=== PATIENT | male | born 1950 | race Caucasian/White ===

== ENCOUNTER 2019-05-12 04:06 | Observation (INO) ==
[2019-05-12] MEDS ORDERED: ONDANSETRON INJ 2 MG/ML 2 ML VIAL IV STA (04:25)
[2019-05-12] MEDS ORDERED: MoRPHine SULFATE 4 MG/ML 1 ML CARP\\VIAL IV STA ×2 (04:25→04:53)
[2019-05-12 04:41] LABS: Basophils # (auto) 0.03 K/uL (0-0.2); Basophils % (auto) 0.2 %; Eosinophils # (auto) 0.07 K/uL (0-0.5); Eosinophils % (auto) 0.5 %; Hematocrit (blood only) 42.2 % (42-52); Hemoglobin 14.6 g/dL (14.0-18.0); Immature Granulocytes # (auto) 0.01 K/uL (0.00-0.02); Immature Granulocytes % (auto) 0.1 %; Lymphocytes # (auto) 1.39 K/uL (1.2-3.4); Lymphocytes % (auto) 10.9 %; Mean Corpuscular Hemoglobin 31.4 pg (25-34); Mean Corpuscular Hgb Conc 34.6 g/dL (32-36); Mean Corpuscular Volume 90.8 fL (80-100); Mean Platelet Volume 11.1 fL (7.4-10.4); Monocytes # (auto) 0.54 K/uL (0.11-0.59); Monocytes % (auto) 4.2 %; Neutrophils # (auto) 10.72 K/uL (1.4-6.5); Neutrophils % (auto) 84.1 %; Platelet Count 220 K/uL (130-400); RDW Coefficient of Variation 14.1 % (11.5-14.5); RDW Standard Deviation 46.7 fL (36.4-46.3); Red Blood Count 4.65 M/uL (4.7-6.1); White Blood Count 12.76 K/uL (4.8-10.8)
[2019-05-12 04:51] LABS: iSTAT Creatinine 0.8 mg/dl (0.6-1.3); iSTAT Hemoglobin 14.6 g/dl (14.0-18.0); iSTAT Ionized Calcium 1.19 mmol/l (1.12-1.32); iSTAT Potassium 3.3 mEq/L (3.3-5.0)
[2019-05-12] MEDS ORDERED: OPTIRAY 320 125ml IV PRN (04:59)
[2019-05-12 05:00] LABS: Alanine Aminotransferase 124 U/L (12-78); Albumin Level 3.8 gm/dl (3.4-5.0); Aspartate Aminotransferase 210 U/L (15-37); BUN Creatinine Ratio 11.7 (10-20); Blood Urea Nitrogen 12 mg/dl (7-18); Calcium 9.4 mg/dl (8.5-10.1); Carbon Dioxide 33 mmol/L (21-32); Chloride 101 mmol/L (98-107); Creatinine Clr Calc Pharmacy 67.7 ml/min; Est GFR (African American) 85.5; Est GFR (Non-African American) 73.8; Glucose 183 mg/dl (70-99); Lipase 79 U/L (73-393); Potassium 3.2 mmol/L (3.5-5.1); Sodium 137 mmol/L (136-145)
[2019-05-12 05:05] LABS: Albumin Globulin Ratio 0.8 (0.9-2); Alkaline Phosphatase 122 U/L (45-117); Bilirubin,Total 0.8 mg/dl (0.2-1); Globulin 4.5 gm/dl (2.5-4.0); Total Protein 8.3 gm/dl (6.4-8.2); Troponin I < 0.015 ng/ml (0-0.045)
--- NOTE | 2019-05-12 05:06 | Emergency Department Note ---
ED Visit Note I have personally seen and evaluated the patient with the PA. On my evaluation, the patient had some pain with palpation of the epigastric to right upper quadrant. Bedside ultrasound was performed by Martha Velazquez PA-C while I was at the bedside. It reveals no free fluid in the abdomen, no clear acute cholecystitis. Patient is aware of the plan for admission and agrees. I agree with the diagnosis and management decisions and have been personally involved in the case. Please see Martha Velazquez PA-C's notes for further details of the history, physical and visit. .
--- NOTE | 2019-05-12 05:09 | Emergency Department Note ---
History of Present Illness General Chief complaint: Abdominal Pain Stated complaint: SEVERE ABD PAIN History of Present Illness Maximum Pain Intensity: 9 This 68-year-old presents to the ER complaining of severe epigastric pain that radiates to his back Location: Epigastric upper abdomen Quality: Severe Severity: Severe Duration: Started at 7 PM last night Timing: Started at 7 PM while watching TV Context: Pain persisted and patient came in Modifying factors: better with nothing; worse with movement Patient is on Eliquis for A. fib. He had a loop monitor placed last week. No prior abdominal surgeries. Patient said heart attack and has heart disease. He has history of CHF. He has a known aortic aneurysm. He believes it is 4.5 cm. Patient denies dyspnea, leg pain or swelling, numbness, tingling, localized weakness. Home Medications Home Medications Medication Instructions Recorded Confirmed Type cilostazol 100 mg PO BID 03/12/18 05/12/19 History hydrochlorothiazide 12.5 mg PO TID 03/12/18 05/12/19 History apixaban [Eliquis] 5 mg PO BID 05/12/19 05/12/19 History metoprolol succinate [Toprol XL] 50 mg PO HS 05/12/19 05/12/19 History nitroglycerin 0.4 mg SUBLINGUAL DIRECTED PRN 05/12/19 05/12/19 History sacubitril-valsartan [Entresto] 1 tab PO BID 05/12/19 05/12/19 History Allergies Allergy/AdvReac Type Severity Reaction Status Date / Time adhesive AdvReac Mild Blister Verified 05/12/19 04:53 magnesium AdvReac Mild Diarrhea Verified 05/12/19 04:53 NSAIDS (Non-Steroidal AdvReac Mild Gastrointestinal Verified 05/12/19 04:53 Anti-Inflamma Upset Tvvdemr-Srd-Ovs Reductase AdvReac Mild Diarrhea Verified 05/12/19 04:53 Inhibitor fenofibrate AdvReac Diarrhea Verified 05/12/19 04:53 olmesartan [From Benicar] AdvReac Diarrhea Verified 05/12/19 04:53 quinapril [From Accupril] AdvReac Confusion Verified 05/12/19 04:53 Past Med/Surg History Medical History (Updated 05/12/19 @ 08:23 by Gavin Minor MD) Abnormal diagnostic test result Abnormal cologuard result CVA (cerebral vascular accident) 04/2019 when off ASA for his planned CABG (which did not happen) 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 - seeHarvey Garcia History of irregular heartbeat Hypertension Ischemic cardiomyopathy Surgical History History of detached retina repair Hx of cardiac catheterization 2001 [place] - stents x3 - done at [facility] Hx of cataract right and left Hx of tooth extraction Family History Brother Myocardial infarction Sister Myocardial infarction Father Myocardial infarction Social History Preferred Language: Persian Communication Ability: Effective Radiator Repairer Required: No Beliefs That Will Affect Care: None Current Living Situation: Spouse Feels Safe at Home: Yes Smoking Status: Never smoker Hx Alcohol Use: No Hx Substance Use: No Review of Systems A total of 10 systems reviewed and were otherwise negative Physical Exam Vital Signs Vital Signs - 24 hr 05/12/19 04:10 05/12/19 04:51 05/12/19 05:00 Temperature 36.3 C L Temperature Source Oral Pulse Rate 53 L 64 Pulse Rate [Apical] 64 Pulse Rate from SpO2 Sensor 69 Pulse Rhythm [Apical] Irregular Respiratory Rate 20 10 L 20 Respiratory Effort / Characteristics Respiratory Depth Shallow Respiratory Pattern Blood Pressure 162/58 H 173/107 H Blood Pressure [Right Arm] 173/86 H Blood Pressure Mean 92 113 Blood Pressure Mean [Right Arm] 115 Blood Pressure Position Sitting Blood Pressure Position [Right Arm] Pulse Oximetry 99 97 95 Oxygen Delivery Method Room Air Room Air Sepsis Recent Fever Within 48 Hours No Sepsis Action Taken by Nursing No Action Required 05/12/19 05:01 05/12/19 05:30 05/12/19 05:31 Temperature Temperature Source Pulse Rate 61 69 58 L Pulse Rate [Apical] Pulse Rate from SpO2 Sensor 56 L 66 60 Pulse Rhythm [Apical] Respiratory Rate 19 23 19 Respiratory Effort / Characteristics Respiratory Depth Respiratory Pattern Blood Pressure 173/86 H 161/81 H Blood Pressure [Right Arm] Blood Pressure Mean 97 90 Blood Pressure Mean [Right Arm] Blood Pressure Position Blood Pressure Position [Right Arm] Pulse Oximetry 97 95 93 Oxygen Delivery Method Sepsis Recent Fever Within 48 Hours Sepsis Action Taken by Nursing 05/12/19 05:44 05/12/19 05:50 05/12/19 05:51 Temperature Temperature Source Pulse Rate 66 57 L Pulse Rate [Apical] 60 Pulse Rate from SpO2 Sensor 57 L Pulse Rhythm [Apical] Respiratory Rate 18 19 18 Respiratory Effort / Characteristics Non-Labored Spontaneous Respiratory Depth Normal Respiratory Pattern Regular Blood Pressure 154/100 H Blood Pressure [Right Arm] 161/81 H Blood Pressure Mean 126 Blood Pressure Mean [Right Arm] 107 Blood Pressure Position Blood Pressure Position [Right Arm] Lying Pulse Oximetry 95 98 Oxygen Delivery Method Room Air Sepsis Recent Fever Within 48 Hours Sepsis Action Taken by Nursing 05/12/19 06:00 05/12/19 06:15 05/12/19 06:30 Temperature Temperature Source Pulse Rate 58 L 53 L 53 L Pulse Rate [Apical] Pulse Rate from SpO2 Sensor 48 L 52 L 51 L Pulse Rhythm [Apical] Respiratory Rate 16 27 H 16 Respiratory Effort / Characteristics Respiratory Depth Respiratory Pattern Blood Pressure 155/80 H 139/75 Blood Pressure [Right Arm] Blood Pressure Mean 86 100 Blood Pressure Mean [Right Arm] Blood Pressure Position Blood Pressure Position [Right Arm] Pulse Oximetry 95 97 96 Oxygen Delivery Method Sepsis Recent Fever Within 48 Hours Sepsis Action Taken by Nursing 05/12/19 06:31 05/12/19 06:33 05/12/19 06:45 Temperature Temperature Source Pulse Rate 53 L 53 L Pulse Rate [Apical] 53 L Pulse Rate from SpO2 Sensor 47 L 47 L Pulse Rhythm [Apical] Respiratory Rate 15 18 20 Respiratory Effort / Characteristics Non-Labored Spontaneous Respiratory Depth Normal Respiratory Pattern Regular Blood Pressure Blood Pressure [Right Arm] 139/75 Blood Pressure Mean Blood Pressure Mean [Right Arm] 96 Blood Pressure Position Blood Pressure Position [Right Arm] Pulse Oximetry 95 95 95 Oxygen Delivery Method Room Air Sepsis Recent Fever Within 48 Hours Sepsis Action Taken by Nursing 05/12/19 07:00 05/12/19 07:01 05/12/19 07:30 Temperature Temperature Source Pulse Rate 53 L 53 L 61 Pulse Rate [Apical] Pulse Rate from SpO2 Sensor 55 L 43 L 52 L Pulse Rhythm [Apical] Respiratory Rate 18 19 15 Respiratory Effort / Characteristics Respiratory Depth Respiratory Pattern Blood Pressure 135/72 144/76 H Blood Pressure [Right Arm] Blood Pressure Mean 78 99 Blood Pressure Mean [Right Arm] Blood Pressure Position Blood Pressure Position [Right Arm] Pulse Oximetry 96 95 98 Oxygen Delivery Method Sepsis Recent Fever Within 48 Hours Sepsis Action Taken by Nursing VITALS: Vitals are noted on the nurse's note and reviewed by myself. Vital signs stable. GENERAL: White male who appears in pain, in acute distress SKIN: Capillary reflex less than 2 seconds. HEENT: Normocephalic. PERRLA. EOMI. Nares patent. Mucous membranes moist. Neck is supple without nuchal rigidity. HEART: Regular rate and rhythm LUNGS: Clear to auscultation bilaterally without wheezes, rales or rhonchi. No retractions or accessory muscle use. ABDOMEN: Positive bowel sounds x 4. Normal tympanic percussion. Soft, tender epigastric region, without masses or organomegaly. Costello sign negative. No guarding or rebound tenderness. No CVA tenderness Rectal exam: No fissures or tears, brown stool, guaiac negative. MUSCULOSKELETAL: No gross musculoskeletal defects. NEURO: Patient was alert and oriented to person place and time. Normal sensation to light and sharp touch. No focal neurological deficits. Course Administered Medications Heparin Sodium/Dextrose (Heparin Sodium/Dextrose) 25,000 units in 500 mls @ 26 mls/hr IV .[id number] [facility]; Protocol Stop: 06/11/19 15:59 Last Titration: 05/12/19 19:11 Dose: 1,300 units/hr, 26 mls/hr Documented by: [id number] Cosigned by: [id number] Admin: 05/12/19 15:48 Dose: 1,300 units/hr, 26 mls/hr Documented by: [id number] Cosigned by: [id number] Metoprolol Succinate (Toprol Xl) 50 mg PO HS [facility] Stop: 06/11/19 20:59 Last Admin: 05/12/19 19:58 Dose: 50 mg Documented by: [id number] Morphine Sulfate (Morphine Sulfate) 4 mg IV Q4H PRN PRN Reason: Pain Stop: 05/26/19 09:50 Last Admin: 05/12/19 18:17 Dose: 4 mg Documented by: [id number] Admin: 05/12/19 14:06 Dose: 4 mg Documented by: [id number] Admin: 05/12/19 10:14 Dose: 4 mg Documented by: [id number] Sacubitril/Valsartan (Entresto 24/26mg) 1 tab PO BID [facility] Stop: 06/11/19 09:59 Last Admin: 05/12/19 19:58 Dose: 1 tab Documented by: [id number] Admin: 05/12/19 11:36 Dose: 1 tab Documented by: [id number] Discontinued Medications Famotidine (Pepcid 20mg Iv Push) 20 mg IV ONE STA Stop: 05/12/19 05:31 Last Admin: 05/12/19 05:35 Dose: 20 mg Documented by: [id number] Pantoprazole Sodium 40 mg/ (Syringe) 10 mls @ 5 mls/min IV NOW STA Stop: 05/12/19 05:43 Last Admin: 05/12/19 05:56 Dose: 5 mls/min Documented by: [id number] Sodium Chloride (Nss) 250 mls @ 999 mls/hr IV .Q16M ONE Stop: 05/12/19 06:07 Last Infusion: 05/12/19 06:29 Dose: 0 mls/hr Documented by: [id number] Admin: 05/12/19 05:53 Dose: 999 mls/hr Documented by: [id number] Heparin Sodium (Porcine) 6,000 (units/ Syringe) 6 mls @ 10 mls/min IV NOW STA Stop: 05/12/19 15:38 Last Admin: 05/12/19 15:48 Dose: 10 mls/min Documented by: [id number] Cosigned by: [id number] Ioversol (Optiray 320 125ml) 125 ml IV ONCE PRN PRN Reason: Interaction Checking Stop: 05/16/19 04:58 Last Admin: 05/12/19 04:59 Dose: 119 ml Documented by: [id number] Morphine Sulfate (Morphine Sulfate) 4 mg IV NOW STA Stop: 05/12/19 04:26 Last Admin: 05/12/19 04:35 Dose: 4 mg Documented by: [id number] Morphine Sulfate (Morphine Sulfate) 4 mg IV NOW STA Stop: 05/12/19 04:54 Last Admin: 05/12/19 04:58 Dose: 4 mg Documented by: [id number] Ondansetron HCl (Zofran) 4 mg IV NOW STA Stop: 05/12/19 04:26 Last Admin: 05/12/19 04:35 Dose: 4 mg Documented by: [id number] Medical Decision Making Medical Records Attestation: I reviewed the patient's medical records. Home Medications Current Medication List: was personally reviewed by me Laboratory Data Attestation: I reviewed the patient's lab results. Result diagrams: 05/12/19 05:27 05/12/19 04:25 Lab Results 05/12/19 05/12/19 05/12/19 Range/Units 04:25 04:25 04:25 WBC 12.76 H (4.8-10.8) K/uL RBC 4.65 L (4.7-6.1) M/uL Hgb 14.6 (14.0-18.0) g/dL POC Hgb (14.0-18.0) g/dl Hct 42.2 (42-52) % POC Hct (42-52) % MCV 90.8 (80-100) fL MCH 31.4 (25-34) pg MCHC 34.6 (32-36) g/dL RDW Std Deviation 46.7 H (36.4-46.3) fL RDW Coeff of Carlos 14.1 (11.5-14.5) % Plt Count 220 (130-400) K/uL MPV 11.1 H (7.4-10.4) fL Immature Gran % (Auto) 0.1 % Neut % (Auto) 84.1 % Lymph % (Auto) 10.9 % Schleicher % (Auto) 4.2 % Eos % (Auto) 0.5 % Baso % (Auto) 0.2 % Immature Gran # (Auto) 0.01 (0.00-0.02) K/uL Neut # (Auto) 10.72 H (1.4-6.5) K/uL Lymph # (Auto) 1.39 (1.2-3.4) K/uL Schleicher # (Auto) 0.54 (0.11-0.59) K/uL Eos # (Auto) 0.07 (0-0.5) K/uL Baso # (Auto) 0.03 (0-0.2) K/uL PT 10.5 (9.0-12.0) Seconds INR 1.0 (0.9-1.1) APTT 25.8 (21.0-31.0) Seconds PTT Ratio 1.0 POC Sodium (135-144) mEq/L Sodium 137 (136-145) mmol/L POC Potassium (3.3-5.0) mEq/L Potassium 3.2 L (3.5-5.1) mmol/L POC Chloride (101-112) mEq/L Chloride 101 (98-107) mmol/L Carbon Dioxide 33 H (21-32) mmol/L POC Total CO2 (24-31) mEq/l Anion Gap 3.0 (3-11) POC Anion Gap (16-25) mmol/L POC BUN (7-18) mg/dl BUN 12 (7-18) mg/dl Creatinine 1.03 (0.6-1.4) mg/dl POC Creatinine (0.6-1.3) mg/dl Est Cr Clr Drug Dosing 67.7 ml/min Est GFR ( Amer) 85.5 Est GFR (Non-Af Amer) 73.8 BUN/Creatinine Ratio 11.7 (10-20) Glucose 183 H (70-99) mg/dl POC Glucose (other) (70-99) mg/dl POC Lactic Acid Rory (0.90-1.70) mmol/L Lactate (0.4-2.0) mmol/L Calcium 9.4 (8.5-10.1) mg/dl POC Ioniz Calcium Los (1.12-1.32) mmol/l Total Bilirubin 0.8 (0.2-1) mg/dl AST 210 H (15-37) U/L ALT 124 H (12-78) U/L Alkaline Phosphatase 122 H (45-117) U/L Troponin I < 0.015 (0-0.045) ng/ml Total Protein 8.3 H (6.4-8.2) gm/dl Albumin 3.8 (3.4-5.0) gm/dl Globulin 4.5 H (2.5-4.0) gm/dl Albumin/Globulin Ratio 0.8 L (0.9-2) Lipase 79 (73-393) U/L Hep Bs Antigen (Neg) Hepatitis C Antibody (Neg) 05/12/19 05/12/19 05/12/19 Range/Units 04:25 04:32 04:36 WBC (4.8-10.8) K/uL RBC (4.7-6.1) M/uL Hgb (14.0-18.0) g/dL POC Hgb 14.6 (14.0-18.0) g/dl Hct (42-52) % POC Hct 43 (42-52) % MCV (80-100) fL MCH (25-34) pg MCHC (32-36) g/dL RDW Std Deviation (36.4-46.3) fL RDW Coeff of Carlos (11.5-14.5) % Plt Count (130-400) K/uL MPV (7.4-10.4) fL Immature Gran % (Auto) % Neut % (Auto) % Lymph % (Auto) % Schleicher % (Auto) % Eos % (Auto) % Baso % (Auto) % Immature Gran # (Auto) (0.00-0.02) K/uL Neut # (Auto) (1.4-6.5) K/uL Lymph # (Auto) (1.2-3.4) K/uL Schleicher # (Auto) (0.11-0.59) K/uL Eos # (Auto) (0-0.5) K/uL Baso # (Auto) (0-0.2) K/uL PT (9.0-12.0) Seconds INR (0.9-1.1) APTT (21.0-31.0) Seconds PTT Ratio POC Sodium 138 (135-144) mEq/L Sodium (136-145) mmol/L POC Potassium 3.3 (3.3-5.0) mEq/L Potassium (3.5-5.1) mmol/L POC Chloride 98 L (101-112) mEq/L Chloride (98-107) mmol/L Carbon Dioxide (21-32) mmol/L POC Total CO2 30 (24-31) mEq/l Anion Gap (3-11) POC Anion Gap 14.0 L (16-25) mmol/L POC BUN 12 (7-18) mg/dl BUN (7-18) mg/dl Creatinine (0.6-1.4) mg/dl POC Creatinine 0.8 (0.6-1.3) mg/dl Est Cr Clr Drug Dosing ml/min Est GFR ( Amer) Est GFR (Non-Af Amer) BUN/Creatinine Ratio (10-20) Glucose (70-99) mg/dl POC Glucose (other) 189 H (70-99) mg/dl POC Lactic Acid Rory 1.97 H (0.90-1.70) mmol/L Lactate (0.4-2.0) mmol/L Calcium (8.5-10.1) mg/dl POC Ioniz Calcium Los 1.19 (1.12-1.32) mmol/l Total Bilirubin (0.2-1) mg/dl AST (15-37) U/L ALT (12-78) U/L Alkaline Phosphatase (45-117) U/L Troponin I (0-0.045) ng/ml Total Protein (6.4-8.2) gm/dl Albumin (3.4-5.0) gm/dl Globulin (2.5-4.0) gm/dl Albumin/Globulin Ratio (0.9-2) Lipase (73-393) U/L Hep Bs Antigen Neg (Neg) Hepatitis C Antibody Neg (Neg) 05/12/19 05/12/19 Range/Units 05:27 07:26 WBC (4.8-10.8) K/uL RBC (4.7-6.1) M/uL Hgb 14.0 (14.0-18.0) g/dL POC Hgb (14.0-18.0) g/dl Hct 40.4 L (42-52) % POC Hct (42-52) % MCV (80-100) fL MCH (25-34) pg MCHC (32-36) g/dL RDW Std Deviation (36.4-46.3) fL RDW Coeff of Carlos (11.5-14.5) % Plt Count (130-400) K/uL MPV (7.4-10.4) fL Immature Gran % (Auto) % Neut % (Auto) % Lymph % (Auto) % Schleicher % (Auto) % Eos % (Auto) % Baso % (Auto) % Immature Gran # (Auto) (0.00-0.02) K/uL Neut # (Auto) (1.4-6.5) K/uL Lymph # (Auto) (1.2-3.4) K/uL Schleicher # (Auto) (0.11-0.59) K/uL Eos # (Auto) (0-0.5) K/uL Baso # (Auto) (0-0.2) K/uL PT (9.0-12.0) Seconds INR (0.9-1.1) APTT (21.0-31.0) Seconds PTT Ratio POC Sodium (135-144) mEq/L Sodium (136-145) mmol/L POC Potassium (3.3-5.0) mEq/L Potassium (3.5-5.1) mmol/L POC Chloride (101-112) mEq/L Chloride (98-107) mmol/L Carbon Dioxide (21-32) mmol/L POC Total CO2 (24-31) mEq/l Anion Gap (3-11) POC Anion Gap (16-25) mmol/L POC BUN (7-18) mg/dl BUN (7-18) mg/dl Creatinine (0.6-1.4) mg/dl POC Creatinine (0.6-1.3) mg/dl Est Cr Clr Drug Dosing ml/min Est GFR ( Amer) Est GFR (Non-Af Amer) BUN/Creatinine Ratio (10-20) Glucose (70-99) mg/dl POC Glucose (other) (70-99) mg/dl POC Lactic Acid Rory (0.90-1.70) mmol/L Lactate 1.6 (0.4-2.0) mmol/L Calcium (8.5-10.1) mg/dl POC Ioniz Calcium Los (1.12-1.32) mmol/l Total Bilirubin (0.2-1) mg/dl AST (15-37) U/L ALT (12-78) U/L Alkaline Phosphatase (45-117) U/L Troponin I (0-0.045) ng/ml Total Protein (6.4-8.2) gm/dl Albumin (3.4-5.0) gm/dl Globulin (2.5-4.0) gm/dl Albumin/Globulin Ratio (0.9-2) Lipase (73-393) U/L Hep Bs Antigen (Neg) Hepatitis C Antibody (Neg) Imaging Data Attestation: I personally reviewed and interpreted this imaging study as follows: Blood Pressure Blood Pressure Findings: Elevated blood pressure Blood Pressure Disposition: Referred to patients primary care provider MDM Narrative Prior records/ancillary studies reviewed. Triage Nursing notes reviewed. Additional history obtained from family. The patient's history was concerning for epigastric pain. Differential diagnosis: Etiologies such as cardiac ischemia, aortic dissection, gallbladder, pancreatitis, pulmonary embolism, pneumonia, pneumothorax, musculoskeletal, infections, pericarditis, myocarditis, esophageal rupture, gastrointestinal, as well as others were entertained. Physical examination: As above. ER treatment provided: An order was placed for continuous cardiac monitoring. The monitor shows a rate of 60-100 with a normal sinus rhythm. IV fluids, Zofran, morphine, Protonix, Pepcid On reassessment the patient felt better. Diagnostic interpretation by me: Emergent FAST POCUS performed by me. Subxiphoid view and parasternal long shows no pericardial effusion or tamponade. Abdominal views demonstrate no free fluid in the hepatorenal space, splenorenal space, or around the bladder. No free fluid. Normal FAST per my interpretation. The electrocardiogram was negative for pathologic change. Normal sinus, occasional PVC, no acute ST-T wave changes, rate of 63. Impression normal sinus rhythm with occasional PVC interpreted by myself Ordered for epigastric pain I think arrhythmia is unlikely. EKG shows normal sinus rhythm with no interval abnormalities such as QT prolongation or WPW. There are no findings to suggest Brugada syndrome. Cardiac monitoring in the emergency department reveals no tachycardic or bradycardic dysrhythmia. Hypertrophic cardiomyopathy was considered but there are no clear historical elements pointing toward this. EKG is not suggestive. The QRS voltage is not extremely large and there are no suggestive Q waves. The labs revealed mild leukocytosis, mild LFT elevation, normal bilirubin, normal lipase. Negative troponin Repeat H&H are mildly lower Lactic acid slightly elevated Imaging studies: CTA CHEST: No pulmonary embolism or acute aortic syndrome. Aneurysmal ascending thoracic aorta measuring 4.5 cm. Atheromatous disease within the descending thoracic aorta. No pulmonary embolism. Severe coronary artery calcifications. No acute process within the lungs. No pleural effusion or pneumothorax. No fracture. CTA ABDOMEN & PELVIS: Infrarenal abdominal aortic aneurysm measuring 4.7 x 4.6 cm. No rupture. Advanced atheromatous disease. Patent celiac artery and SMA. Occluded GABRIEL with reconstitution. Moderate to severe stenosis within the bilateral common iliac arteries. Moderate to severe stenosis within the proximal SFA bilaterally. Oval hyperdense focus within the cecum measuring 2.2 x 1.3 cm with what appears to be a feeding artery concerning for an active GI bleed. A hyperdense masses also in the differential but considered less likely. Enlarged mesenteric lymph node adjacent to the cecum with internal calcification measuring 1.5 x 1.2 cm. Colonic diverticulosis. Unremarkable appearance of the liver, gallbladder, pancreas, spleen, and adrenal glands. Right renal lower pole infarct, chronic. Radiologist: Jhon Saleh MD HEART SCORE: Hx: high/mod/low suspicion: 0 ECG: ST depression/nonspecific changes/normal: 0 Age: Greater than 65/45-64/less than 45: 2 Risk factors: (Hypertension, hyperlipidemia, diabetes, coronary disease, tobacco use, cocaine use): 1 Troponin: Greater than 2 times normal limits/1-2 times normal limits/normal: 0 Total: 3 Consultation: A consultation was placed with the radiologist and states he is concerned there might be an active GI bleed. I spoke to GI, Dr. Garcia, and recommends medical admission and will scope the patient in the morning and recommends the patient stay n.p.o. Dr. Gamez, hospitalist was made aware of the patient for admission. Medicine is requesting additional testing and this is ordered per their request. The CAT scan was over read this morning by Dr. Amado and the admission team, Dr. Minor was made aware. He was informed that there was no active GI bleed on imaging per radiology. The patient was evaluated in the ER for further treatment. Exam and history seem consistent with abdominal pain with unclear etiology. This could be from a possible active GI bleed or biliary related. Patient's Hemoccult was negative. He was given Pepcid and Protonix IV in the ER. He was placed n.p.o. GI was consulted and will scope the patient in the morning as the initial CT reading was concerning for GI bleed. The second reading that was over read by our radiologist states there is no active bleed. Patient's repeat H&H are slightly lower. Medicine was consulted for admission and was made aware of the over read by our radiologist of the CTA. CTA was negative for dissection. By the evaluation outlined above emergent etiologies such as cardiac ischemia, aortic dissection, pulmonary embolism, pneumonia, pneumothorax, pericarditis, myocarditis, as well as others were deemed relatively unlikely. The pt informed about the findings as listed above. All questions were answered and pleased with the treatment. Case reviewed with my attending The chart was completed utilizing [employer] voice recognition software. Grammatical errors, random word insertions, pronoun errors, and incomplete sentences are an occassional consequence of this system due to software limitations, ambient noise, and hardware issues. Any formal questions or concerns about the content, text, or information contained within the body of this dictation should be directly addressed to the physician preschool assistant for clarification. Impression & Plan Abdominal pain in male, Elevated LFTs Discharge Plan Visit Data *Final* Discharge Date/Time: 05/12/19 09:18 Chief Complaint: Abdominal Pain Stated Complaint: SEVERE ABD PAIN ED Provider: Raeann Fernández ED Midlevel Provider: Lourdes Velazquez Discharge Problem: Abdominal pain in male, Elevated LFTs Patient Disposition: Admitted As Inpatient Condition: Fair Discharge Instructions Interventions: ED Discharge Assessment Last Done: 05/12/19 09:18
[2019-05-12] MEDS ORDERED: FAMOTIDINE 20MG/5ML IV PUSH IV STA (05:30)
[2019-05-12 05:36] LABS: Hematocrit (blood only) 40.4 % (42-52)
[2019-05-12] MEDS ORDERED: PANTOprazole 40 MG in SYRINGE 0 ML IV STA (05:42)
[2019-05-12] MEDS ORDERED: SODIUM CHLORIDE 0.9% 250 ML IV ONE (05:52)
[2019-05-12 06:07] LABS: Partial Thromboplastin Time 25.8 Seconds (21.0-31.0); Prothrombin Time 10.5 Seconds (9.0-12.0)
--- NOTE | 2019-05-12 08:12 | History & Physical Report ---
Date of Service May 12, 2019 Assessment & Plan (1) RUQ pain: Acute onset epigastric pain. Overnight CT a/p showed possible cecal GI bleed, but in discussion with they day-time radiology, he feels this is not the case. Overall a fairly benign CT a/p with the official read pending due to co mputer issues. - Seen by GI in the ED - Possible scope - RUQ u/s pending as this seems more like cholelithiasis in history - NPO in case of scope (2) Elevated LFTs: Possibly due to CBD stone. - Monitor LFTs - As above for possible choledocholithiasis (3) CVA (cerebral vascular accident): CVA in 04/2019 while off ASA for his planned CABG at [facility]. Loop recorder implanted in case of afib. - Hold apixaban & cilostazol until official CT read back - Restart as able (4) Ischemic cardiomyopathy: No echo in my system, but notes from 02/2019 indicate an EF of 35%. He presently appears euvolemic. - Continue beta-yady and Entresto - Monitor volume status (5) Hypertension: BP is 145/75 in the ED. - Continue home beta-yady and Entresto. (6) DVT prophylaxis: SCDs - Holding for possible GI bleed. Will restart Eliquis as able. History of Present Illness Primary Care Provider: Owen Bowman 68yo M w/ hx of CAD, afib, and CVA who presents for RUQ and epigastric pain that started at approx. 7pm last night. He was planned for a CABG at [facility] in 04/2019. He was taken off of his aspirin in preparation for the surgery; however, he had a stroke the day prior to surgery which delayed the surgery. He was started on Eliquis and cilostazol and had a loop recorder implanted by Dr. Wade on 05/05/2019 to monitor his afib burden. At 2pm, he had a heavy meal of hotdogs. At 7pm, he had fairly sudden onset of RUQ and epigastric pain. The pain radiated to the flank and back. He had nausea and a few episodes of emesis (clear, non-bloody, non-bilious). No diarrhea or other BM. No fevers or chills. No shortness of breath. Allergies Allergy/AdvReac Type Severity Reaction Status Date / Time adhesive AdvReac Mild Blister Verified 05/12/19 04:53 magnesium AdvReac Mild Diarrhea Verified 05/12/19 04:53 NSAIDS (Non-Steroidal AdvReac Mild Gastrointestinal Verified 05/12/19 04:53 Anti-Inflamma Upset [id number] Reductase AdvReac Mild Diarrhea Verified 05/12/19 04:53 Inhibitor fenofibrate AdvReac Diarrhea Verified 05/12/19 04:53 olmesartan [From Benicar] AdvReac Diarrhea Verified 05/12/19 04:53 quinapril [From Accupril] AdvReac Confusion Verified 05/12/19 04:53 Home Medications Home Medications Medication Instructions Recorded Confirmed Type cilostazol 100 mg PO BID 03/12/18 05/12/19 History hydrochlorothiazide 12.5 mg PO TID 03/12/18 05/12/19 History apixaban [Eliquis] 5 mg PO BID 05/12/19 05/12/19 History metoprolol succinate [Toprol XL] 50 mg PO HS 05/12/19 05/12/19 History nitroglycerin 0.4 mg SUBLINGUAL DIRECTED PRN 05/12/19 05/12/19 History sacubitril-valsartan [Entresto] 1 tab PO BID 05/12/19 05/12/19 History Past Med/Surg History Medical History Abnormal diagnostic test result Abnormal cologuard result CVA (cerebral vascular accident) 04/2019 when off ASA for his planned CABG (which did not happen) 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 - seesDr Lachoi History of irregular heartbeat Hypertension Surgical History History of detached retina repair Hx of cardiac catheterization [facility] - stents x[facility] - done at [facility] Hx of cataract right and left Hx of tooth extraction Family History Brother Myocardial infarction Sister Myocardial infarction Father Myocardial infarction Social History Preferred Language: Kuwaiti Communication Ability: Effective 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 Beliefs That Will Affect Care: None Current Living Situation: Spouse Feels Safe at Home: Yes Smoking Status: Former smoker Hx Alcohol Use: No Hx Substance Use: No Review of Systems Review of Systems: All systems reviewed & are unremarkable except as noted in HPI & below Physical Exam Constitutional: WD/WN, vitals as above Eyes: EOM intact bilaterally; no conjunctival abnormality ENMT: external ear and nose normal, oropharynx normal Neck: trachea midline, no thyromegaly normal visual inspection Respiratory: normal respiratory effort, lungs clear to auscultation no respiratory distress Cardiovascular: RRR, no murmur, no edema Gastrointestinal (Abdomen): Inspection/Auscultation: abdomen normal to inspection and normal bowel sounds; abdomen not distended Percussion/Palpation: + abdomen tender (RUQ and epigastric) and abdomen soft; no guarding and abdomen not rigid Musculoskeletal: no cyanosis or clubbing, extremities motor strength 5/5 Skin: no rashes, warm and dry Neurologic: moves all extremities and awake Psychiatric: Orientation: alert, oriented to person and cooperative Results & Data Vital Signs (Past 12 Hours) Vital Signs Temp Pulse Pulse Resp BP BP Pulse Ox 05/12/19 07:30 61 15 144/76 H 98 05/12/19 07:01 53 L 19 95 05/12/19 07:00 53 L 18 135/72 96 05/12/19 06:45 53 L 20 95 05/12/19 06:33 53 L 18 139/75 95 05/12/19 06:31 53 L 15 95 05/12/19 06:30 53 L 16 139/75 96 05/12/19 06:15 53 L 27 H 97 05/12/19 06:00 58 L 16 155/80 H 95 05/12/19 05:51 57 L 18 154/100 H 98 05/12/19 05:50 66 19 05/12/19 05:44 60 18 161/81 H 95 05/12/19 05:31 58 L 19 93 05/12/19 05:30 69 23 161/81 H 95 05/12/19 05:01 61 19 173/86 H 97 05/12/19 05:00 64 20 173/86 H 95 05/12/19 04:51 64 10 L 173/107 H 97 05/12/19 04:10 36.3 C L 53 L 20 162/58 H 99 Code Status & VTE Plan VTE Prophylaxis Plan VTE Prophylaxis will be ordered: Yes PG Care Time/CCT Total # of Minutes Spent Total Time Spent with Patient: Total time spent is greater than 50% in coordination of care (as documented) at patient's floor/unit and/or counseling patient:
--- NOTE | 2019-05-12 08:41 | CT Scan Report ---
CT angio abdomen pelvis w con CT DOSE: CLINICAL HISTORY: SEVERE EPIGASTRIC PAIN TECHNIQUE: CT angiography of the abdomen and pelvis was performed in a dynamic helical fashion during intravenous administration of 1 19 cc of Optiray 320. MIP images were acquired. A dose lowering flower hnique was utilized adhering to the principles of ALARA. COMPARISON STUDY: None. FINDINGS: The visualized portions of lung bases reveal dependent atelectatic change. No hepatic masses are visualized in this arterial phase study. There is an equivocal tiny gallbladder polyp. No splenic masses are visualized. No pancreatic masses are visualized. No adrenal masses are visualized. No renal masses are visualized on this arterial phase study. There is decreased attenuation of the lo wer pole the right kidney, likely on an ischemic basis. There are no transition zones to indicate bowel obstruction. The appendix appears normal. There is co lonic diverticulosis. There is sigmoid wall thickening, likely secondary to peridiverticular muscular hypertrophy. There are small fat-containing inguinal hernias. There is no pathologic adenopathy. There are advanced atheromatous changes present within the distal thoracic aorta and abdominal aorta with multiple ulcerated plaques. There is a 4.4 cm infrarenal abdominal aortic aneurysm. There is no evidence for hemodynamically significant celiac or superior mesenteric artery stenosis. T here is no evidence of hemodynamically significant left renal artery stenosis. There are 2 right quiana l arteries. There is a subtotal occlusion of the lower pole right renal artery with secondary ischemi c changes involving the lower pole of the right kidney. There are advanced atheromatous changes within both common iliac arteries. There is no evidence of he modynamically significant external iliac artery stenosis. There are moderate atheromatous changes wit hin the common femoral arteries. There is a moderate stenosis involving the left superficial femoral artery origin. IMPRESSION: 1. Advanced atheromatous changes within the distal thoracic aorta and abdominal aorta 2. 4.4 cm infrarenal abdominal aortic aneurysm 3. 2 right renal arteries with a subtotal occlusion of the lower pole right renal artery. There is se condary diminished attenuation of the lower pole of the right kidney indicative of ischemic change 4. No evidence of bowel obstruction. No evidence of free air 5. Normal appendix 6. Colonic diverticulosis. Sigmoid wall thickening, likely secondary to peridiverticular muscular hyp ertrophy although a colitis could appear similar ACT 112: Negative or not required by law. Electronically signed by: Be Santiago M.D. 05/12/2019 8:39 AM
--- NOTE | 2019-05-12 08:45 | CT Scan Report ---
CT angio chest dissec wo/w con CT DOSE: HISTORY: Pain. Nausea. SEVERE EPIGASTRIC PAIN TECHNIQUE: Multiaxial CT images of the chest, abdomen, and pelvis were performed both before and afte r the intravenous administration of contrast to evaluate the aorta. Maximal intensity projection imag es were also obtained. A dose lowering technique was utilized adhering to the principles of ALARA. COMPARISON STUDY: None. FINDINGS: Lungs are grossly clear. Mild cardiac enlargement. Cardiac vascular calcification. 4.2 cm prominence of the ascending aorta. No evidence for free fluid within the periaortic mediastina l or hilar regions. The pulmonary vasculature enhances appropriately. Lungs are considered clear. IMPRESSION: 1. 4.2 cm prominence of the ascending thoracic aorta. 2. Lungs are clear. 3. No evidence for pulmonary embolus. 4. Slight increase in density of gastric contents posteriorly probably secondary to oral ingested mat erial. ACT 112: Negative or not required by law. The above report was generated using voice recognition software. It may contain grammatical, syntax or spelling errors. Electronically signed by: Daniel Amado M.D. 05/12/2019 8:44 AM
--- NOTE | 2019-05-12 08:46 | XRay Report ---
XR chest 1V portable CLINICAL HISTORY: Chest Pain pain COMPARISON STUDY: 04/06/2018 FINDINGS: The bones soft tissues and hemidiaphragms are normal. The cardiomediastinal silhouette is n ormal. The lungs are clear. The pulmonary vasculature is normal. IMPRESSION: Negative chest. ACT 112: Negative or not required by law. The above report was generated using voice recognition software. It may contain grammatical, syntax or spelling errors. Electronically signed by: Daniel Amado M.D. 05/12/2019 8:45 AM
--- NOTE | 2019-05-12 09:06 | Ultrasound Report ---
US gallbladder HISTORY: Pain. Nausea. epi pain COMPARISON: None. FINDINGS: Trace debris within the gallbladder lumen. Normal caliber bile ducts. Common bile duct 5 mm. Intrahep atic ducts are normal. Pancreas and right kidney are normal. IMPRESSION: 1. Trace amount of debris within the gallbladder lumen. 2. Normal caliber bile ducts. 3. Otherwise normal study. ACT 112: Negative or not required by law. The above report was generated using voice recognition software. It may contain grammatical, syntax or spelling errors. Electronically signed by: Daniel Amado M.D. 05/12/2019 9:04 AM
--- NOTE | 2019-05-12 09:12 | Ultrasound Report ---
US duplex mesenteric CLINICAL HISTORY: 68 years-old Male presenting with Severe abd pain. TECHNIQUE: Real-time grayscale and color and spectral Doppler ultrasound imaging of the aorta and mes enteric vessels was performed. COMPARISON: CTA from earlier today. FINDINGS: Aorta: Aneurysmal dilatation of the abdominal aorta in the infrarenal portion, measuring up to 4.2 cm . Prominent mural thrombus/noncalcified atherosclerotic plaque. Residual lumen diameter measures 2.8 cm. Normal waveform. Peak systolic velocity 89 cm/s. Celiac axis: Patent. Normal waveforms. Peak systolic velocity 153-186 cm/s. This does not significant ly change with inspiration versus expiration. Hepatic artery: Patent. Normal waveforms. Peak systolic velocity 91 cm/s. Splenic artery: Not interrogated. Superior mesenteric artery: Patent. Normal waveforms. Peak systolic velocity 209 cm/s proximally, 283 cm/s in the midportion, and 232 cm/s distally. Inferior mesenteric artery: Not interrogated. Reference ranges: Celiac artery: PSV ? 240 cm/s suggests stenosis ? 50%; PSV ? 320 cm/s suggests stenosis ? 70%. Superior mesenteric artery: PSV ? 295 cm/s suggests stenosis ? 50%; PSV ? 400 cm/s suggests stenosis ? 70%. IMPRESSION: 1. Infrarenal abdominal aortic aneurysm measuring up to 4.2 cm as seen on CTA with prominent mural t hrombus/noncalcified atherosclerotic plaque. 2. No hemodynamically significant stenosis of the superior mesenteric artery or the additional inter rogated branch vessels. ACT 112: Negative or not required by law. Electronically signed by: Isauro Russ M.D. 05/12/2019 9:10 AM
[2019-05-12] MEDS ORDERED: ACETAMINOPHEN 325 MG TAB PO PRN (09:47)
[2019-05-12] MEDS: MoRPHine SULFATE 4 MG/ML 1 ML CARP\\VIAL IV PRN ×4 (10:14→22:04)
[2019-05-12] MEDS: SACUBITRIL-VALSARTAN 24-26 MG TAB PO SCH ×2 (11:36→19:58)
[2019-05-12 11:44] LABS: Hepatitis B Surface Antigen Neg (Neg)
[2019-05-12 12:12] LABS: Hepatitis C IgG 13Yrs+Old_Rflx Neg (Neg)
[2019-05-12] MEDS ORDERED: Heparin Adult STANDARD Wt-Based Dextrose 5% 25,000 units/500 mL IV SCH (15:30)
[2019-05-12] MEDS ORDERED: HEPARIN IV BOLUS 6,000 UNITS in SYRINGE 0 ML IV STA (15:37)
[2019-05-12] MEDS: HEPARIN SODIUM/DEXTROSE 25,000 UNITS/500 ML BAG IV SCH (15:48)
--- NOTE | 2019-05-12 17:35 | Consultation Report ---
DATE OF CONSULTATION: 05/12/2019 GASTROINTESTINAL CONSULTATION REASON FOR CONSULTATION: Right-sided abdominal pain. HISTORY OF PRESENT ILLNESS: The patient is a 68-year-old with severe vascular disease, who was watching TV last night around 7:00 p.m. when he had the acute onset of severe right-sided abdominal pain that radiated to the epigastric area and into the right flank. On a scale of 1-10, it was 9. There was no associated nausea or vomiting, no change in bowels. The pain was so severe that by 3:00 a.m., he had to present to the Emergency Room where he underwent multiple tests. 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 The liver and gallbladder were normal. His lactic acid level was also elevated. His BUN and creatinine were normal. He has been urinating normally without any obvious hematuria. He does have severe vascular disease in other areas as well. PAST MEDICAL HISTORY: Remarkable for a CVA in April when he was off anticoagulants in anticipation of coronary artery bypass graft surgery that was anticipated the next day at [facility]. He has ischemic cardiomyopathy with ejection fraction of 35%. He has thoracic and aortic aneurysms with a partial thrombus in the aortic aneurysm in his abdomen. Hypertension and irregular heartbeat in the form of atrial fibrillation. MEDICATIONS: Cilostazol, hydrochlorothiazide, Eliquis, Toprol, nitroglycerin, and Entresto. ALLERGIES: PER LIST. FAMILY HISTORY: Positive for myocardial infarctions in his father, sister and brother. SOCIAL HISTORY: The patient is , is a former smoker, does not drink any alcohol. REVIEW OF SYSTEMS: Positive for the back and abdominal pain. Remainder is negative. PHYSICAL EXAMINATION: GENERAL: The patient appears in no acute distress. VITAL SIGNS: Blood pressure is 140/76, pulse 61. ABDOMEN: Soft. There is mild tenderness in the right upper quadrant. There is increased pain in the right CVA area. No mass or rebound. IMPRESSION: It appears that the patient's right-sided abdominal pain is emanating from the lower half of his infarcted right kidney and this could explain at least his alkaline phosphatase and AST elevations; the ALT is found only in the liver and skeletal muscle, but this could also be some bystander inflammation from the infarction. I do not believe any intervention related to his digestive tract is necessary at this time, but I agree with putting him on heparin and I will go ahead and feed him as endoscopic intervention is not anticipated. Please contact me if any further gastrointestinal input is necessary.
[2019-05-12] MEDS: METOPROLOL SUCC 50MG EXT REL TAB PO SCH (19:58)
--- NOTE | 2019-05-12 22:40 | Cardiology Consultation ---
Date of Consultation May 12, 2019 History of Present Illness Attending Physician: Gavin Minor MD History of Present Illness The patient is a 68-year-old male with a past medical history significant for recent CVA in April 2019, history of multivessel coronary artery disease, peripheral arterial disease, hypertension and hyperlipidemia who presented to [facility] emergency department with a complaint of right upper quadrant abdominal pain which he noted started in the evening prior to admission. Patient noted that he was eating hot dogs when he developed right upper quadrant abdominal pain that radiated into his epigastric area as well as his right flank. He denied any chest pain or nausea or vomiting. He denied any fevers chills or any other complaints. He notes that the pain was severe 9 of 10 on a pain scale that did not relent therefore presented to the emergency department in the technician automatic hours. Patient underwent multiple tests including several imaging studies which revealed he did have a sub-occluded abdominal aortic thrombus as well as noted right lower pole ischemia in his right kidney. Patient was subsequently admitted to the hospital service and cardiology was consulted given his significant cardiac history. Upon questioning the patient he did note his right abdominal pain which had decreased somewhat. He denied any current shortness of breath chest pain palpitations or any other cardiac complaints. Allergies Allergy/AdvReac Type Severity Reaction Status Date / Time adhesive AdvReac Mild Blister Verified 05/12/19 04:53 magnesium AdvReac Mild Diarrhea Verified 05/12/19 04:53 NSAIDS (Non-Steroidal AdvReac Mild Gastrointestinal Verified 05/12/19 04:53 Anti-Inflamma Upset Rfyqslb-Qre-Tvm Reductase AdvReac Mild Diarrhea Verified 05/12/19 04:53 Inhibitor fenofibrate AdvReac Diarrhea Verified 05/12/19 04:53 olmesartan [From Benicar] AdvReac Diarrhea Verified 05/12/19 04:53 quinapril [From Accupril] AdvReac Confusion Verified 05/12/19 04:53 Home Medications Home Medications Medication Instructions Recorded Confirmed Type cilostazol 100 mg PO BID 03/12/18 05/12/19 History hydrochlorothiazide 12.5 mg PO TID 03/12/18 05/12/19 History apixaban [Eliquis] 5 mg PO BID 05/12/19 05/12/19 History metoprolol succinate [Toprol XL] 50 mg PO HS 05/12/19 05/12/19 History nitroglycerin 0.4 mg SUBLINGUAL DIRECTED PRN 05/12/19 05/12/19 History sacubitril-valsartan [Entresto] 1 tab PO BID 05/12/19 05/12/19 History Patient History Medical History Abnormal diagnostic test result Abnormal cologuard result CVA (cerebral vascular accident) 04/2019 when off ASA for his planned CABG (which did not happen) 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 - seesDr Jose History of irregular heartbeat Hypertension Ischemic cardiomyopathy Surgical History History of detached retina repair Hx of cardiac catheterization [place] - stents x3 - done at [facility] Hx of cataract right and left Hx of tooth extraction Family History Brother Myocardial infarction Sister Myocardial infarction Father Myocardial infarction Social History Preferred Language: Lao Communication Ability: Effective Adjuster 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 Beliefs That Will Affect Care: None Current Living Situation: Spouse Feels Safe at Home: Yes Smoking Status: Never smoker Hx Alcohol Use: No Hx Substance Use: No Review of Systems Review of Systems: All systems reviewed & are unremarkable except as noted in HPI & below Physical Exam Physical Exam: General appearance: Awake alert and oriented in no apparent distress HEENT: Normocephalic atraumatic sclera nonicteric Neck: Supple no JVD or adenopathy thyromegaly noted Cardiovascular: Regular rate and rhythm with a 1/6 systolic murmur best appreciated at the right upper sternal border no rubs or gallops Lungs: Clear to auscultation bilaterally Abdominal: Right-sided abdominal tenderness to palpation positive bowel sounds Extremities: No significant lower extremity edema Results & Data Vital Signs (Past 12 Hours) Vital Signs Temp Pulse Pulse Resp BP Pulse Ox 05/12/19 19:20 36.9 C 60 18 120/66 93 05/12/19 16:26 36.7 C 57 L 20 128/62 94 05/12/19 15:32 55 L 05/12/19 13:36 37.3 C 50 L 18 137/70 96 05/12/19 11:19 36.5 C 54 L 16 152/75 H 97 05/12/19 11:16 68 Impression: 1. Right upper quadrant abdominal pain 2. History of ischemic cardiomyopathy with an LVEF of 35% 3. History of multivessel coronary artery disease 4. Peripheral arterial disease 5. History of nonsustained ventricular tachycardia 6. Hyperlipidemia Plan: 1. Given the patient's presentation and findings on imaging studies we will continue with heparin drip and will await input from vascular medicine in terms of his current condition.GI consulted and they felt this was not a GI issue per their note. 2. Patient is stable from a volume standpoint therefore we will continue the current medical regimen and recommend low-sodium diet and monitor I/O's and daily weights as well as daily BMP.Magnesium level. 3. As above we will continue with his current medical therapy but it is of note the patient is not on statin therapy secondary to intolerance this may be a ddressed as an outpatient and the patient may benefit from PCS canine inhibitor therapy. Low-dose aspirin is also recommended for this patient 81 mg daily 4. As above we will await vascular medicine input 5. We will continue with telemetry monitoring I recommend potassium and magnesium repletion and checking a daily BMP as well as an EKG daily. We will continue with metoprolol therapy 6. As above the patient is intolerant to statin therapy which we can readdress as an outpatient as he does follow-up with his primary correction warden Dr. Keven Newman. If you have any questions, please feel free to contact us and thank you for allowing our team to care for this patient.
[2019-05-12 23:00] LABS: Partial Thromboplastin Ratio 3.5
[2019-05-12 23:02] LABS: Partial Thromboplastin Time 93.5 Seconds (21.0-31.0)
--- NOTE | 2019-05-12 23:18 | Electrocardiogram Report ---
Test Reason : Blood Pressure : / mmHG Vent. Rate : 063 BPM Atrial Rate : 063 BPM P-R Int : 198 ms QRS Dur : 114 ms QT Int : 444 ms P-R-T Axes : 057 -21 124 degrees QTc Int : 454 ms Sinus rhythm with frequent Premature ventricular complexes Nonspecific ST and T wave abnormality Abnormal ECG When compared with ECG of 19-FEB-2012 20:20, Nonspecific T wave abnormality has replaced inverted T waves in Inferior leads T wave inversion more evident in Lateral leads Confirmed by Abhilash Trejo ([id number]) on 05/12/2019 11:18:34 PM Referred By: REFERRED SELF Confirmed By:Abhilash Trejo
[2019-05-13] MEDS: MoRPHine SULFATE 4 MG/ML 1 ML CARP\\VIAL IV PRN ×3 (05:46→18:41)
[2019-05-13 06:27] LABS: Hematocrit (blood only) 37.5 % (42-52); Hemoglobin 12.9 g/dL (14.0-18.0); Mean Corpuscular Hemoglobin 31.4 pg (25-34); Mean Corpuscular Hgb Conc 34.4 g/dL (32-36); Mean Corpuscular Volume 91.2 fL (80-100); Mean Platelet Volume 10.9 fL (7.4-10.4); Platelet Count 182 K/uL (130-400); RDW Coefficient of Variation 14.1 % (11.5-14.5); RDW Standard Deviation 47.3 fL (36.4-46.3); Red Blood Count 4.11 M/uL (4.7-6.1); White Blood Count 10.06 K/uL (4.8-10.8)
[2019-05-13 06:49] LABS: Partial Thromboplastin Ratio 2.3
[2019-05-13 06:51] LABS: Partial Thromboplastin Time 61.3 Seconds (21.0-31.0)
[2019-05-13 06:54] LABS: BUN Creatinine Ratio 13.7 (10-20); Calcium 8.5 mg/dl (8.5-10.1); Creatinine Clr Calc Pharmacy 72.6 ml/min; Est GFR (African American) 93.1; Est GFR (Non-African American) 80.3; Magnesium 2.1 mg/dl (1.8-2.4); Potassium 3.6 mmol/L (3.5-5.1)
[2019-05-13 07:02] LABS: Albumin Globulin Ratio 0.9 (0.9-2); Bilirubin,Total 0.7 mg/dl (0.2-1); Globulin 3.5 gm/dl (2.5-4.0); Phosphorus 2.6 mg/dl (2.5-4.9); Total Protein 6.5 gm/dl (6.4-8.2)
[2019-05-13 07:03] LABS: Estimated Average Glucose 134 mg/dl; Hemoglobin A1C 6.3 % (4.5-5.6)
[2019-05-13] MEDS: cilostazoL 100 MG TAB PO SCH ×2 (09:08→18:42)
[2019-05-13] MEDS: SACUBITRIL-VALSARTAN 24-26 MG TAB PO SCH ×2 (09:08→18:42)
--- NOTE | 2019-05-13 09:56 | History & Physical Report ---
Date of Service May 13, 2019 History of Present Illness Primary Care Provider: Owen Bowman This is a 68-year-old gentleman who is well-known to our practice. No official consult is needed. We have been following him for a small 4.2 cm on aortic aneurysm. He was recently seen in the fall of last year. He was planning on having open heart surgery done in [place] the end of April at which time he had a CVA the day prior. He was admitted this time with abdominal discomfort. Going across both upper part of his abdomen. His CT scan showed a small inferior ischemic area of the right kidney. This was associated with a moderate narrowing of the accessory artery. The main renal arteries to both kidneys are widely patent. Onset his CTA both the mesenteric and the celiac artery are widely patent. At this point we will continue to follow his abdominal aortic aneurysm and ultrasounds on a biyearly basis. 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 From our standpoint he can go back on his anticoagulation as per cardiology. Thank you very much for letting us participate in the care of this patient. Allergies Allergy/AdvReac Type Severity Reaction Status Date / Time adhesive AdvReac Mild Blister Verified 05/12/19 04:53 magnesium AdvReac Mild Diarrhea Verified 05/12/19 04:53 NSAIDS (Non-Steroidal AdvReac Mild Gastrointestinal Verified 05/12/19 04:53 Anti-Inflamma Upset Vvlnlkj-Slo-Gfh Reductase AdvReac Mild Diarrhea Verified 05/12/19 04:53 Inhibitor fenofibrate AdvReac Diarrhea Verified 05/12/19 04:53 olmesartan [From Benicar] AdvReac Diarrhea Verified 05/12/19 04:53 quinapril [From Accupril] AdvReac Confusion Verified 05/12/19 04:53 Home Medications Home Medications Medication Instructions Recorded Confirmed Type cilostazol 100 mg PO BID 03/12/18 05/12/19 History hydrochlorothiazide 12.5 mg PO TID 03/12/18 05/12/19 History apixaban [Eliquis] 5 mg PO BID 05/12/19 05/12/19 History metoprolol succinate [Toprol XL] 50 mg PO HS 05/12/19 05/12/19 History nitroglycerin 0.4 mg SUBLINGUAL DIRECTED PRN 05/12/19 05/12/19 History sacubitril-valsartan [Entresto] 1 tab PO BID 05/12/19 05/12/19 History Past Med/Surg History Medical History (Updated 05/12/19 @ 08:23 by Gavin Minor MD) Abnormal diagnostic test result Abnormal cologuard result CVA (cerebral vascular accident) 04/2019 when off ASA for his planned CABG (which did not happen) 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 - seeHarvey Garcia History of irregular heartbeat Hypertension Ischemic cardiomyopathy Surgical History History of detached retina repair Hx of cardiac catheterization 2001 Post [place] - stents x3 - done at [facility] Hx of cataract right and left Hx of tooth extraction Family History Brother Myocardial infarction Sister Myocardial infarction Father Myocardial infarction Social History Preferred Language: Filipino Communication Ability: Effective Track Oiler Required: No Beliefs That Will Affect Care: None Current Living Situation: Spouse Feels Safe at Home: Yes Smoking Status: Never smoker Hx Alcohol Use: No Hx Substance Use: No Results & Data Vital Signs (Past 12 Hours) Vital Signs Temp Pulse Pulse Resp BP Pulse Ox 05/13/19 09:00 49 L 05/13/19 07:39 36.9 C 50 L 18 105/55 L 95 05/13/19 04:00 36.8 C 53 L 20 113/57 L 92 05/12/19 22:56 36.9 C 61 18 112/53 L 92 05/12/19 22:20 55 L Code Status & VTE Plan VTE Prophylaxis Plan VTE Prophylaxis will be ordered: Yes
--- NOTE | 2019-05-13 11:32 | Surgery Consultation ---
Date of Consultation May 13, 2019 Assessment & Plan (1) RUQ pain: This is a 68y M with a PMH of CAD, abdominal aneurysm, and recent CVA who presented to the [facility] ED on 05/12 with complaints of abdominal pain and nausea. Patient developed RUQ pain, nausea, and vomiting several hours after ingesting hotdogs that did not go away. As there was concern for gallbladder etiology a RUQ US was obtained revealed some gb debris, but an overall unremarkable study. Patient's Tbili is normal, but in the ED his AST and ALT were slightly elevated. Today's labs show a WBC: 10, Tbili of 0.7, AST: 39, ALT: 124, and AlkP:87 which are downtrending. Patient is afebrile. Today patient reports that his pain is improving and his nausea is gone. Hospitalists ordered a HIDA scan to further evaluate the gallbladder that we will follow up on. Patient would be a high risk surgical candidate considering his recent CVA and needs for open heart surgery. Doubtful HIDA will show c/f acute cholecystitis, but if concerning for biliary dyskinesia etc.. would prefer patient be evaluated at a tertiary center such as [facility] for a planned procedure. Vascular has been consulted for findings on CTA and plan for observation at this time. Dr. Garsia has had right upper quadrant pain since admission and nausea prior to that-his gallbladder on ultrasound is distended with gravel-he does not have severe edema or pericholecystic fluid. His HIDA scan showed nonvisualization of the gallbladder-indicating obstruction of his cystic duct He continues to have some mild tenderness in the right upper quadrant. Normally we would proceed with laparoscopic cholecystectomy today or tomorrow but he is at high risk because of his recent stroke and ischemic heart disease requiring bypass surgery. He is not in an urgent situation at the present time however he is at risk for developing necrotizing cholecystitis over the next 2 to 3 days. The safest thing for him may be to have a cholecystostomy tube placed in the next 1 to 2 days if possible. This would be a tertiary care center. He could be monitored for worsening symptoms, fever, elevated white blood cell count, and pain but his comorbidity makes him very high risk. History of Present Illness Attending Physician: Gavin Minor MD History of Present Illness This is a 68y M with a PMH of CAD, aortic aneurysm, PVD, HTN who presents to the [facility] ED on 05/12/19 with complaints of abdominal pain and nausea. Patient reports his pain started thursday evening around 7pm. He describes the pain as located mostly in the upper abdominal regions, worse on the right side. He said he last ate hotdogs around 2pm on thursday. Patient thought it was gas pains and he took Beano, but the pain remained constant and did not subside prompting him to be evaluated in the ED. He subsequently developed nausea & vomiting thereafter. Patient reports he felt similar pains to this before, once after eating beef, but the pain always subsided. Due to patient's known vasculopathy in the ED a CTA was performed revealing a 4.4 cm infrarenal abdominal aortic aneurysm, and 2 right renal arteries with a subtotal occlusion of the lower pole right renal artery. A RUQ US obtained showed normal caliber bile ducts, trace debris, and otherwise normal gallbladder study. In the ED patient's WBC 12.7, Tb: 0.8, AST: 210, ALT: 124, lipase 79. Patient denies chest pain, shortness of breath, change in bowel habits, or urinary symptoms. Of significance the patient was scheduled to undergo a CABG at [facility] in 2018, but was cancelled as he presumably was admitted for a CVA the day prior to surgery. He says during that admission he was started on Eliquis and his surgery has not yet been rescheduled. General surgery was consulted to evaluate patient for gallbladder etiology of his symptoms. Allergies Allergy/AdvReac Type Severity Reaction Status Date / Time adhesive AdvReac Mild Blister Verified 05/12/19 04:53 magnesium AdvReac Mild Diarrhea Verified 05/12/19 04:53 NSAIDS (Non-Steroidal AdvReac Mild Gastrointestinal Verified 05/12/19 04:53 Anti-Inflamma Upset Zpfgiwv-Kry-Dtc Reductase AdvReac Mild Diarrhea Verified 05/12/19 04:53 Inhibitor fenofibrate AdvReac Diarrhea Verified 05/12/19 04:53 olmesartan [From Benicar] AdvReac Diarrhea Verified 05/12/19 04:53 quinapril [From Accupril] AdvReac Confusion Verified 05/12/19 04:53 Home Medications Home Medications Medication Instructions Recorded Confirmed Type cilostazol 100 mg PO BID 03/12/18 05/12/19 History hydrochlorothiazide 12.5 mg PO TID 03/12/18 05/12/19 History apixaban [Eliquis] 5 mg PO BID 05/12/19 05/12/19 History metoprolol succinate [Toprol XL] 50 mg PO HS 05/12/19 05/12/19 History nitroglycerin 0.4 mg SUBLINGUAL DIRECTED PRN 05/12/19 05/12/19 History sacubitril-valsartan [Entresto] 1 tab PO BID 05/12/19 05/12/19 History Patient History Medical History Abnormal diagnostic test result Abnormal cologuard result CVA (cerebral vascular accident) 04/2019 when off ASA for his planned CABG (which did not happen) 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 - seesDr Simoni History of irregular heartbeat Hypertension Ischemic cardiomyopathy Surgical History History of detached retina repair Hx of cardiac catheterization 2001 Post [place] - stents x3 - done at [facility] Hx of cataract right and left Hx of tooth extraction Family History Brother Myocardial infarction Sister Myocardial infarction Father Myocardial infarction Social History Preferred Language: Swedish Communication Ability: Effective Banquet Cook Required: No Beliefs That Will Affect Care: None Current Living Situation: Spouse Feels Safe at Home: Yes Smoking Status: Never smoker Hx Alcohol Use: No Hx Substance Use: No Review of Systems Constitutional: + chills and + sweats; no fever Respiratory: no shortness of breath Cardiovascular: no chest pain Gastrointestinal: + abdominal pain (mostly upper abdominal region, worse on right side), + nausea and + vomiting; no bloating and no change in stools Genitourinary: + as per Subjective / HPI Physical Exam Physical Exam: awake/alert Constitutional: well developed and well nourished; no acute distress Respiratory: normal respiratory effort Gastrointestinal (Abdomen): Inspection/Auscultation: abdomen not distended Percussion/Palpation: + abdomen tender (mildly in RUQ to palpation) and abdomen soft Results & Data Vital Signs (Past 12 Hours) Vital Signs Temp Pulse Pulse Resp BP Pulse Ox 05/13/19 09:00 49 L 05/13/19 07:39 36.9 C 50 L 18 105/55 L 95 05/13/19 04:00 36.8 C 53 L 20 113/[address] angio abdomen pelvis w con CT DOSE: CLINICAL HISTORY: SEVERE EPIGASTRIC PAIN TECHNIQUE: CT angiography of the abdomen and pelvis was performed in a dynamic helical fashion during intravenous administration of 1 19 cc of Optiray 320. MIP images were acquired. A dose lowering technique was utilized adhering to the principles of ALARA. COMPARISON STUDY: None. FINDINGS: The visualized portions of lung bases reveal dependent atelectatic change. No hepatic masses are visualized in this arterial phase study. There is an equivocal tiny gallbladder polyp. No splenic masses are visualized. No pancreatic masses are visualized. No adrenal masses are visualized. No renal masses are visualized on this arterial phase study. There is decreased attenuation of the lower pole the right kidney, likely on an ischemic basis. There are no transition zones to indicate bowel obstruction. The appendix appears normal. There is colonic diverticulosis. There is sigmoid wall thickening, likely secondary to peridiverticular muscular hypertrophy. There are small fat-containing inguinal hernias. There is no pathologic adenopathy. There are advanced atheromatous changes present within the distal thoracic aorta and abdominal aorta with multiple ulcerated plaques. There is a 4.4 cm infrarenal abdominal aortic aneurysm. There is no evidence for hemodynamically significant celiac or superior mesenteric artery stenosis. There is no evidence of hemodynamically significant left renal artery stenosis. There are 2 right renal arteries. There is a subtotal occlusion of the lower pole right renal artery with secondary ischemic changes involving the lower pole of the right kidney. There are advanced atheromatous changes within both common iliac arteries. There is no evidence of hemodynamically significant external iliac artery stenosis. There are moderate atheromatous changes within the common femoral arteries. There is a moderate stenosis involving the left superficial femoral artery origin. IMPRESSION: 1. Advanced atheromatous changes within the distal thoracic aorta and abdominal aorta 2. 4.4 cm infrarenal abdominal aortic aneurysm 3. 2 right renal arteries with a subtotal occlusion of the lower pole right renal artery. There is secondary diminished attenuation of the lower pole of the right kidney indicative of ischemic change 4. No evidence of bowel obstruction. No evidence of free air 5. Normal appendix 6. Colonic diverticulosis. Sigmoid wall thickening, likely secondary to peridiverticular muscular hypertrophy although a colitis could appear similar ACT 112: Negative or not required by law. Electronically signed by: Be Santiago M.D. 05/12/2019 8:[address] angio chest dissec wo/w con CT DOSE: HISTORY: Pain. Nausea. SEVERE EPIGASTRIC PAIN TECHNIQUE: Multiaxial CT images of the chest, abdomen, and pelvis were performed both before and after the intravenous administration of contrast to evaluate the aorta. Maximal intensity projection images were also obtained. A dose lowering technique was utilized adhering to the principles of ALARA. COMPARISON STUDY: None. FINDINGS: Lungs are grossly clear. Mild cardiac enlargement. Cardiac vascular calcification. 4.2 cm prominence of the ascending aorta. No evidence for free fluid within the periaortic mediastinal or hilar regions. The pulmonary vasculature enhances appropriately. Lungs are considered clear. IMPRESSION: 1. 4.2 cm prominence of the ascending thoracic aorta. 2. Lungs are clear. 3. No evidence for pulmonary embolus. 4. Slight increase in density of gastric contents posteriorly probably secondary to oral ingested material. ACT 112: Negative or not required by law. The above report was generated using voice recognition software. It may contain grammatical, syntax or spelling errors. Electronically signed by: Daniel Amado M.D. 05/12/2019 8:44 AM [place], [place] [phone] Ultrasound Report Patient: LUIS MANUEL TREVINO FAdbunny Date: 05/12/19 MR#: [id number]: [address] Acct ID:[id number]: Date: 1950City Zip: [place] [address] Age: 68Location: ED Sex: M Room/Bed: Att Phy:Diagnosis: SEVERE ABD PAIN Jenny Phy: Owen Bowman MDServjeison Date: 05/12/19 Fam Phy:Interpreting Phy: Daniel Amado MD Admit Phy: Ordering Phy: Lourdes Velazquez PA-C cc: ~ US gallbladder HISTORY: Pain. Nausea. epi pain COMPARISON: None. FINDINGS: Trace debris within the gallbladder lumen. Normal caliber bile ducts. Common bile duct 5 mm. Intrahepatic ducts are normal. Pancreas and right kidney are normal. IMPRESSION: 1. Trace amount of debris within the gallbladder lumen. 2. Normal caliber bile ducts. 3. Otherwise normal study. [facility] [place] [phone] Ultrasound Report Patient: LUIS MANUEL TREVINO Date: 05/12/19 MR#: [id number]: [address] Acct ID:[id number]: Date: 1950City Zip: [place] [address] Age: 68Location: ED Sex: M Room/Bed: Att Phy:Diagnosis: SEVERE ABD PAIN Jenny Phy: Owen Bowman, MDService Date: 05/12/19 Fam Phy:Interpreting Phy: Isauro Russ MD Admit Phy: Ordering Phy: Yaw Jones MD cc: ~ US duplex mesenteric CLINICAL HISTORY: 68 years-old Male presenting with Severe abd pain. TECHNIQUE: Real-time grayscale and color and spectral Doppler ultrasound imaging of the aorta and mesenteric vessels was performed. COMPARISON: CTA from earlier today. FINDINGS: Aorta: Aneurysmal dilatation of the abdominal aorta in the infrarenal portion, measuring up to 4.2 cm. Prominent mural thrombus/noncalcified atherosclerotic plaque. Residual lumen diameter measures 2.8 cm. Normal waveform. Peak systolic velocity 89 cm/s. Celiac axis: Patent. Normal waveforms. Peak systolic velocity 153-186 cm/s. This does not significantly change with inspiration versus expiration. Hepatic artery: Patent. Normal waveforms. Peak systolic velocity 91 cm/s. Splenic artery: Not interrogated. Superior mesenteric artery: Patent. Normal waveforms. Peak systolic velocity 209 cm/s proximally, 283 cm/s in the midportion, and 232 cm/s distally. Inferior mesenteric artery: Not interrogated. Reference ranges: Celiac artery: PSV ? 240 cm/s suggests stenosis ? 50%; PSV ? 320 cm/s suggests stenosis ? 70%. Superior mesenteric artery: PSV ? 295 cm/s suggests stenosis ? 50%; PSV ? 400 cm/s suggests stenosis ? 70%. IMPRESSION: 1. Infrarenal abdominal aortic aneurysm measuring up to 4.2 cm as seen on CTA with prominent mural thrombus/noncalcified atherosclerotic plaque. 2. No hemodynamically significant stenosis of the superior mesenteric artery or the additional interrogated branch vessels. ACT 112: Negative or not required by law. Electronically signed by: Isauro Russ M.D. 05/12/2019 9:10 AM Dictated: 05/12/19905 Transcribed: 05/12/19905 PG Care Time/CCT Total # of Minutes Spent Total Time Spent with Patient: Total time spent is greater than 50% in coordination of care (as documented) at patient's floor/unit and/or counseling patient:
[2019-05-13] MEDS ORDERED: SINCALIDE 1.5 MCG in 0.9 % SODIUM CHLORIDE 100 ML IV ONE (12:45)
[2019-05-13] MEDS ORDERED: MoRPHine SULFATE 2 MG/ML CARP ONE (13:10)
[2019-05-13 13:39] LABS: Hepatitis A Antibody IgM NON-REACTIVE (NON-REACTIVE); Hepatitis B Core Antibody IgM NON-REACTIVE (NON-REACTIVE)
[2019-05-13] MEDS ORDERED: ASPIRIN 81 MG ECTAB PO SCH (14:00)
[2019-05-13] MEDS ORDERED: APIXABAN 5 MG TABLET PO SCH (14:00)
[2019-05-13] MEDS ORDERED: APIXABAN 2.5 MG TAB PO SCH (14:00)
--- NOTE | 2019-05-13 14:04 | Nuclear Medicine Report ---
NUCLEAR MEDICINE HEPATOBILIARY SCAN HISTORY: RUQ PAIN COMPARISON: Abdominal ultrasound 05/12/2019. TECHNIQUE: Immediately following the intravenous administration of 5.4 mCi Tc-99m Choletec, dynamic a nterior abdominal imaging was performed. FINDINGS: Uniform hepatic tracer accumulation is shown. Prompt intrahepatic biliary excretion is seen. The comm on bile duct and small bowel are visualized at 15 minutes. The gallbladder is not identified during t he initial 60 minutes. Therefore, 2 mg of intravenous morphine was administered. An additional 30 min utes of imaging was obtained. The gallbladder is not identified. Therefore, these findings are consis tent with acute cholecystitis/cystic duct obstruction. IMPRESSION: Above findings consistent with acute cholecystitis/cystic duct obstruction. Surgical consultation rec ommended. This finding was called/faxed to the referring physician's office following dictation. ACT 112: Positive. There are findings on this exam that require communication between the performing entity and the patient following Patient Test Result Information Act ([place] Act 112) guidelines. Electronically signed by: Dav Solitario M.D. 05/13/2019 2:03 PM
[2019-05-13] MEDS ORDERED: Heparin IV Standard *NO* Bolus IV SCH (15:29)
[2019-05-13] MEDS ORDERED: HEPARIN SODIUM/DEXTROSE 25,000 UNITS/500 ML BAG IV SCH (15:30)
--- NOTE | 2019-05-13 15:38 | Hospitalist Progress Note ---
Date of Service May 13, 2019 Assessment & Plan (1) RUQ pain: Acute onset RUQ pain. - HIDA scan on 05/13 showed acute cholecystitis/cystic duct obstruction. - Seen by surgery - Recommend transfer to tertiary care. (2) Renal infarct: Lower pole right renal infarct seen on CTA a/p on 05/12. - Heparin gtt - Continue cilostazol (3) Elevated LFTs: Likely due to cystic duct obstruction. - Monitor LFTs -> Resolved by 05/13 (4) CVA (cerebral vascular accident): CVA in 04/2019 while off ASA for his planned CABG at [place]. Loop recorder implanted in case of afib. - Restarted due to the renal infarct as above (5) Ischemic cardiomyopathy: No echo in my system, but notes from 02/2019 indicate an EF of 35%. He presently appears euvolemic. - Continue beta-yady and Entresto - Monitor volume status (6) Hypertension: BP is 135/75 in the ED. - Continue home beta-yady and Entresto. (7) AAA (abdominal aortic aneurysm): Followed by Dr. Garcia (vascular) for small 4.2 cm on aortic aneurysm. - Bi-annual monitor (8) DVT prophylaxis: Heparin gtt for renal infarct Subjective Continued pain in the RUQ. He otherwise is in his normal state of health. Reports no fevers/chills, chest pain, shortness of breath, nausea, or vomiting. Physical Exam Constitutional: WD/WN, vitals as above Eyes: EOM intact bilaterally; no conjunctival abnormality ENMT: external ear and nose normal, oropharynx normal Neck: trachea midline, no thyromegaly normal visual inspection Respiratory: normal respiratory effort, lungs clear to auscultation no respiratory distress Cardiovascular: RRR, no murmur, no edema Gastrointestinal (Abdomen): Inspection/Auscultation: abdomen normal to insp ection and normal bowel sounds; abdomen not distended Percussion/Palpation: + abdomen tender (RUQ and epigastric) and abdomen soft; no guarding and abdomen not rigid Musculoskeletal: no cyanosis or clubbing, extremities motor strength 5/5 Skin: no rashes, warm and dry Neurologic: moves all extremities and awake Psychiatric: Orientation: alert, oriented to person and cooperative Results & Data Vital Signs (Past 12 Hours) Vital Signs Temp Pulse Pulse Resp BP Pulse Ox 05/13/19 11:21 36.7 C 54 L 18 130/72 95 05/13/19 09:00 49 L 05/13/19 07:39 36.9 C 50 L 18 105/55 L 95 05/13/19 04:00 36.8 C 53 L 20 113/57 L 92 PG Care Time/CCT Total # of Minutes Spent Total Time Spent with Patient: Total time spent is greater than 50% in coordination of care (as documented) at patient's floor/unit and/or counseling patient:
--- NOTE | 2019-05-13 15:39 | Billing Data ---
Date of Service May 13, 2019 Coding Level of Care Code 48625 Prolonged Care (int'l) Comment Time in the room: 9:15am to 9:35am 3:00pm to 3:30pm
[2019-05-13] MEDS: HEPARIN SODIUM/DEXTROSE 25,000 UNITS/500 ML BAG IV SCH (15:54)
--- NOTE | 2019-05-13 17:03 | Discharge Summary ---
Date of Service May 13, 2019 Admission HPI Per Admitting Provider This is a 68-year-old gentleman who is well-known to our practice. No official consult is needed. We have been following him for a small 4.2 cm on aortic aneurysm. He was recently seen in the fall of last year. He was planning on having open heart surgery done in [place] the end of April at which time he had a CVA the day prior. He was admitted this time with abdominal discomfort. Going across both upper part of his abdomen. His CT scan showed a small inferior ischemic area of the right kidney. This was associated with a moderate narrowing of the accessory artery. The main renal arteries to both kidneys are widely patent. Onset his CTA both the mesenteric and the celiac artery are widely patent. At this point we will continue to follow his abdominal aortic aneurysm and ultrasounds on a biyearly basis. 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 From our standpoint he can go back on his anticoagulation as per cardiology. Thank you very much for letting us participate in the care of this patient. Principal Diagnosis Acute cholecystitis Discharge Exam Constitutional WD/WN, vitals as above Eyes EOM intact bilaterally; no conjunctival abnormality ENMT external ear and nose normal, oropharynx normal Neck trachea midline, no thyromegaly normal visual inspection Respiratory normal respiratory effort, lungs clear to auscultation no respiratory distress Cardiovascular RRR, no murmur, no edema Gastrointestinal (Abdomen) Inspection/Auscultation: abdomen normal to inspection and normal bowel sounds; abdomen not distended Percussion/Palpation: + abdomen tender (RUQ and epigastric) and abdomen soft; no guarding and abdomen not rigid Musculoskeletal no cyanosis or clubbing, extremities motor strength 5/5 Skin no rashes, warm and dry Neurologic moves all extremities and awake Psychiatric Orientation: alert, oriented to person and cooperative Discharge Data Allergies Allergy/AdvReac Type Severity Reaction Status Date / Time adhesive AdvReac Mild Blister Verified 05/12/19 04:53 magnesium AdvReac Mild Diarrhea Verified 05/12/19 04:53 NSAIDS (Non-Steroidal AdvReac Mild Gastrointestinal Verified 05/12/19 04:53 Anti-Inflamma Upset Ohcpmcr-Mby-Qna Reductase AdvReac Mild Diarrhea Verified 05/12/19 04:53 Inhibitor fenofibrate AdvReac Diarrhea Verified 05/12/19 04:53 olmesartan [From Benicar] AdvReac Diarrhea Verified 05/12/19 04:53 quinapril [From Accupril] AdvReac Confusion Verified 05/12/19 04:53 Consultations 05/12/19 05:38 ED Decision to Admit Stat 05/12/19 09:47 Consult Gastroenterology Routine 05/12/19 13:30 Consult Cardiology Routine 05/12/19 14:38 Consult Vascular Surgery Routine 05/13/19 14:16 Consult General Surgery Routine 05/13/19 16:28 Burn CD for patient Stat Ordered Studies 05/12/19 04:50 CT angio abdomen pelvis w con Urgent 05/12/19 05:07 CT angio chest dissec wo/w con Urgent 05/12/19 06:23 US gallbladder Stat 05/12/19 06:24 US duplex mesenteric Stat Hospital Course (1) RUQ pain: Acute onset RUQ pain. RUQ U/s showed distended gallbladder with debris in the gallbladder lumen. - HIDA scan on 05/13 showed acute cholecystitis/cystic duct obstruction. - Seen by surgery - Recommend transfer to tertiary care for perc miguelangel. (2) Renal infarct: Lower pole right renal infarct seen on CTA a/p on 05/12. - Heparin gtt -> Was on Eliquis beforehand and held while inpatient. - Continue cilostazol - Not given ASA or Plavix in the hospital. (3) Elevated LFTs: Likely due to cystic duct obstruction. - Monitor LFTs -> Resolved by 05/13 (4) CVA (cerebral vascular accident): CVA in 04/2019 while off ASA for his planned CABG at [place]. [place] card felt this was possibly cardioembolic. Loop recorder implanted in case of afib. - Restarted anticoagulation due to the renal infarct as above (5) Ischemic cardiomyopathy: No echo in my system, but notes from 02/2019 indicate an EF of 35%. He presently appears euvolemic. - Continue beta-yady and Entresto - Monitor volume status (6) Hypertension: BP is 135/75 in the ED. - Continue home beta-yady and Entresto. (7) AAA (abdominal aortic aneurysm): Followed by Dr. Garcia (vascular) for small 4.2 cm on aortic aneurysm. - Bi-annual monitor (8) DVT prophylaxis: Heparin gtt for renal infarct Total Time Total Time Spent Total Time Spent (In Minutes): 100 Discharge Plan Discharge Items Patient Disposition: Transfer Acute Care Hospital Reason For Visit: RUQ PAIN Discharge Diagnosis: Cholecystitis Condition on Discharge: Fair Activity: Resume your previous activity Non-emergency contact: Primary Care Provider, Surgeon and Specialist Call non-emergency contact if: your symptoms worsen Follow-up/Referrals: Owen Bowman [Primary Care Provider] - Keven Newman DO [Physician] - 05/17/19 2:10 pm () Devyn Garcia MD [Physician] - 05/31/19 1:00 pm Diet: Heart Healthy Addtl Attending Provider Instructions: Admitted for RUQ pain. 1) Found to have a lower pole renal infarct and started on heparin gtt (was already on Eliquis, but held in the hospital). Seen by vascular surgery. Conservative care. 2) Found to have acute cholecystitis on HIDA scan. Seen by surgery. Can't do a lap miguelangel here. Too high risk. Transfer for perc miguelangel. Pending Studies at Discharge: No Stand-Alone Forms: Call Back Authorization, Pending Sale To [facility] Skilled Items Patient informed of condition?: Yes DNR: No Discharge Level of Care: Other Communicable Disease: No Discharge Prognosis: Stable Lines: Peripheral IV Urinary Catheter: No Medications and DC Order Prescriptions: Continued Entresto 24-26 mg Tablet 1 tab PO BID RF: 0 metoprolol succinate [Toprol XL] 50 mg Tablet Extended Release 24 Hr 50 mg PO HS RF: 0 nitroglycerin 0.4 mg Tablet, Sublingual 0.4 mg sublingual DIRECTED PRN (Reason: Chest Pain) RF: 0 cilostazol 100 mg Tablet 100 mg PO BID RF: 0 hydrochlorothiazide 25 mg Tablet 12.5 mg PO TID RF: 0 Discontinued Eliquis 5 mg Tablet 5 mg PO BID RF: 0 Discharge Orders: Discharge Order (Routine); Ordered 05/13/19 Ordered By: Gavin Auguste/Other Patient Handouts: Prediabetes, A1C Admission Data Admit Date/Time: 05/13/19 15:39 Attending Provider: Gavin Minor Admit Provider: Gavin Minor Primary Care Provider: Owen Bowman Other Providers: Juan Vergara ; Alec Smith ; Keven Newman ; Devyn Garcia ; Stanton Bell.
[2019-05-13] MEDS: METOPROLOL SUCC 50MG EXT REL TAB PO SCH (18:43)
== END 2019-05-13 19:37 | disposition short-term general hospital (02) | DRG 445 ==
LOC: ED 04:06 → 2N 04:06

== ENCOUNTER 2019-08-01 15:48 | Inpatient (IN) ==
[2019-08-01] MEDS ORDERED: SODIUM CHLORIDE 0.9% 1000ML 1,000 ML IV ONE (16:06)
--- NOTE | 2019-08-01 16:43 | Emergency Department Note ---
History of Present Illness General Chief complaint: Referred by Doctor Stated complaint: POSSIBLE INFECTION - TUBE IN GALLBLADDER Time Seen by Provider: 08/01/19 15:59 History of Present Illness Provider complaint: Abdominal pain Onset (ago): day(s) 3 Location: abdomen Maximum Pain Intensity: 2 Current Pain Intensity: 2 68-year-old male with history of having a cholangiotube placed at [facility] presents with abdominal pain and fever. Patient reports his abdominal pain and fever began on Thursday. T-max 100.6. He states his pain began on Thursday and it was "20 out of 10" he states his pain is since resolved and he is currently only having a 2 out of 10 pain. Pain is located in the right upper quadrant and epigastric area. Patient also does note that he had some brown discharge coming out of his tube and his stents become normal. He also reports a productive cough and dark urine. He states he spoke with his PCP and told him to come to the emergency department. Home Medications Home Medications Medication Instructions Recorded Confirmed Type cilostazol 100 mg PO BID 03/12/18 08/01/19 History hydrochlorothiazide 12.5 mg PO TID 03/12/18 08/01/19 History Entresto 1 tab PO BID 05/12/19 08/01/19 History metoprolol succinate [Toprol XL] 50 mg PO QPM 05/12/19 08/01/19 History nitroglycerin 0.4 mg SUBLINGUAL DIRECTED PRN 05/12/19 08/01/19 History acetaminophen [Tylenol Extra 1,000 mg PO Q6H PRN 06/07/19 08/01/19 History Strength] apixaban [Eliquis] 5 mg PO BID 06/07/19 08/01/19 History amiodarone 200 mg PO QAM 08/01/19 08/01/19 History Allergies Allergy/AdvReac Type Severity Reaction Status Date / Time adhesive AdvReac Mild Blister Verified 08/01/19 16:51 magnesium AdvReac Mild Diarrhea Verified 08/01/19 16:51 NSAIDS (Non-Steroidal AdvReac Mild Gastrointestinal Verified 08/01/19 16:51 Anti-Inflamma Upset Dndeupm-Eco-Iom Reductase AdvReac Mild Diarrhea Verified 08/01/19 16:51 Inhibitor fenofibrate AdvReac Diarrhea Verified 08/01/19 16:51 olmesartan [From Benicar] AdvReac Diarrhea Verified 08/01/19 16:51 quinapril [From Accupril] AdvReac Confusion Verified 08/01/19 16:51 Past Med/Surg History Medical History Abnormal diagnostic test result Abnormal cologuard result CVA (cerebral vascular accident) 04/2019 when off ASA for his planned CABG (which did not happen) 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 - Gisel Garcia History of irregular heartbeat Hypertension Ischemic cardiomyopathy Surgical History History of detached retina repair Hx of cardiac catheterization 2001 [place] - stents x3 - done at [facility] Hx of cataract right and left Hx of tooth extraction Family History Brother Myocardial infarction Sister Myocardial infarction Father Myocardial infarction Social History Preferred Language: Italian Communication Ability: Effective Child'S Nurse Required: No Beliefs That Will Affect Care: None Current Living Situation: Spouse Feels Safe at Home: Yes Smoking Status: Former smoker Hx Alcohol Use: No Hx Substance Use: No Review of Systems A total of 10 systems reviewed and were otherwise negative Physical Exam Vital Signs Vital Signs - 24 hr 08/01/19 15:53 08/01/19 16:33 08/01/19 16:35 Temperature 36.8 C Temperature Source Oral Pulse Rate 86 71 Pulse Rate [Left] 71 Pulse Rate from SpO2 Sensor 71 Pulse Rhythm [Left] Regular Respiratory Rate 20 27 H 20 Respiratory Effort / Characteristics Non-Labored Spontaneous Non-Labored Respiratory Depth Normal Normal Respiratory Pattern Regular Blood Pressure 116/73 132/66 Blood Pressure [Left Arm] 132/66 Blood Pressure Mean 87 83 Blood Pressure Mean [Left Arm] 88 Blood Pressure Position Sitting Pulse Oximetry 96 94 96 Oxygen Delivery Method Room Air Room Air Sepsis Recent Fever Within 48 Hours No Sepsis Action Taken by Nursing No Action Required 08/01/19 16:36 08/01/19 17:00 08/01/19 17:30 Temperature Temperature Source Pulse Rate 67 66 Pulse Rate [Left] 65 Pulse Rate from SpO2 Sensor 61 Pulse Rhythm [Left] Respiratory Rate 17 23 Respiratory Effort / Characteristics Respiratory Depth Respiratory Pattern Blood Pressure 128/82 148/75 H Blood Pressure [Left Arm] 148/75 H Blood Pressure Mean 106 95 Blood Pressure Mean [Left Arm] 99 Blood Pressure Position Pulse Oximetry 96 96 96 Oxygen Delivery Method Room Air Room Air Sepsis Recent Fever Within 48 Hours Sepsis Action Taken by Nursing 08/01/19 18:05 08/01/19 18:30 08/01/19 19:00 Temperature Temperature Source Pulse Rate 71 67 68 Pulse Rate [Left] Pulse Rate from SpO2 Sensor 72 67 68 Pulse Rhythm [Left] Respiratory Rate 24 20 24 Respiratory Effort / Characteristics Respiratory Depth Respiratory Pattern Blood Pressure 183/96 H 138/78 167/83 H Blood Pressure [Left Arm] Blood Pressure Mean 144 112 101 Blood Pressure Mean [Left Arm] Blood Pressure Position Pulse Oximetry 98 98 97 Oxygen Delivery Method Sepsis Recent Fever Within 48 Hours Sepsis Action Taken by Nursing Physical Exam GENERAL: He is oriented to person, place, and time. He appears well-developed and well-nourished. He does not appear distressed. HENT: Exam performed. - Head: Normocephalic and atraumatic. - Right Ear: External ear normal. No mastoid tenderness. - Left Ear: External ear normal. No mastoid tenderness. - Mouth/Throat: The oropharynx is clear and moist. No trismus in the jaw. No dental abscesses or uvula swelling. No oropharyngeal exudate or tonsillar abscesses. EYES: Conjunctivae and EOM are normal. Pupils are equal, round, and reactive to light. Right eye exhibits no discharge. Left eye exhibits no discharge. No scleral icterus. NECK: Normal range of motion. Neck supple. No JVD present. No spinous process tenderness present. No carotid bruit present. No rigidity. No tracheal deviation and normal range of motion present. No Brudzinski's sign and no Kernig's sign noted. CV: Normal rate, regular rhythm, normal heart sounds and intact distal pulses. There is no peripheral edema. Palpable radial pulses bue. PULM/CHEST: Effort normal and breath sounds normal. No respiratory distress. No stridor. He has no wheezes. He has no rales. - Chest Wall: He exhibits no tenderness. ABD: The abdomen is soft. percutaneous cholango tube in right upper quadrant wi th no surrounding erythema or discharge. Pain on palpation of the epigastric area in the right upper quadrant. MUSC/SKEL: Normal range of motion. There is no peripheral edema, tenderness or deformity. LYMPH: No cervical adenopathy. NEURO: He is alert and oriented to person, place, and time. He has normal strength. No cranial nerve deficit or sensory deficit. Coordination and gait normal. GCS eye subscore is 4. GCS verbal subscore is 5. GCS motor subscore is 6. Cerebellar tests wnl. SKIN: Skin is warm and dry. He is not diaphoretic. PSYCH: He has a normal mood and affect. Behavior is normal. Judgment and thought content normal. Course Course 1600: The patient was evaluated in room B5. A complete history and physical exam was performed. 1840: Vital signs stable. Labs within normal limits with exception of liver f unction test. White count within normal limits lactic acid within normal limits. CT of the abdomen shows that the cholecystectomy tube is in good position with trace pericholecystic fluid similar to prior study. Trace gas within the gallbladder lumen is most likely due to catheter. Minimal infla mmatory change along the course of the catheter which is almost completely resolved. There is also sigmoid diverticulitis with an 11 mm focus of glass superior to the sigmoid colon consistent with a microperforation of diverticulitis. Patient will be treated with Zosyn. I did discuss the findings with Dr. Hoyos, general surgery, explained to him that the patient's symptoms include abdominal pain and fever most likely due to the diverticulitis and microperforation. I did asked Dr. Hoyos if he thought the patient needed to be transferred back to [facility] or if he could remain here. Dr. Hoyos reviewed the patient's symptoms with me thought that the patient should be admitted to the hospitalist service here at [facility] and he will be on consult. He states he will be down to evaluate the patient. I discussed the findings with Dr. Artur Cervantes hospitalist who agreed to the admission. Administered Medications Piperacillin Sod/Tazobactam Sod (Zosyn) 4.5 gm in 120 mls @ 30 mls/hr IV NOW ONE Stop: 08/01/19 22:22 Last Admin: 08/01/19 18:59 Dose: 30 mls/hr Documented by: [id number] Ioversol (Optiray 320 100ml) 94 ml IV ONCE PRN PRN Reason: Interaction Checking Stop: 08/05/19 17:37 Last Admin: 08/01/19 17:38 Dose: 1 ml Documented by: [id number] Discontinued Medications Sodium Chloride (Nss 1000ml) 1,000 mls @ 999 mls/hr IV .Q1H1M ONE Stop: 08/01/19 17:06 Last Infusion: 08/01/19 18:17 Dose: 0 mls/hr Documented by: [id number] Admin: 08/01/19 16:44 Dose: 999 mls/hr Documented by: [id number] Medical Decision Making Laboratory Data Result diagrams: 08/01/19 16:20 08/01/19 16:20 Lab Results 08/01/19 08/01/19 08/01/19 Range/Units 16:20 16:20 16:20 WBC 10.31 (4.8-10.8) K/uL RBC 3.99 L (4.7-6.1) M/uL Hgb 12.0 L (14.0-18.0) g/dL Hct 35.8 L (42-52) % MCV 89.7 (80-100) fL MCH 30.1 (25-34) pg MCHC 33.5 (32-36) g/dL RDW Std Deviation 50.1 H (36.4-46.3) fL RDW Coeff of Carlos 15.4 H (11.5-14.5) % Plt Count 235 (130-400) K/uL MPV 10.5 H (7.4-10.4) fL Immature Gran % (Auto) 0.3 % Neut % (Auto) 71.6 % Lymph % (Auto) 13.3 % Hard[place] % (Auto) 12.9 % Eos % (Auto) 1.6 % Baso % (Auto) 0.3 % Immature Gran # (Auto) 0.03 H (0.00-0.02) K/uL Neut # (Auto) 7.39 H (1.4-6.5) K/uL Lymph # (Auto) 1.37 (1.2-3.4) K/uL Harding # (Auto) 1.33 H (0.11-0.59) K/uL Eos # (Auto) 0.16 (0-0.5) K/uL Baso # (Auto) 0.03 (0-0.2) K/uL PT 11.1 (9.0-12.0) Seconds INR 1.1 (0.9-1.1) APTT 39.1 H (21.0-31.0) Seconds PTT Ratio 1.4 Sodium 134 L (136-145) mmol/L Potassium 3.2 L (3.5-5.1) mmol/L Chloride 103 (98-107) mmol/L Carbon Dioxide 27 (21-32) mmol/L Anion Gap 4.0 (3-11) BUN 21 H (7-18) mg/dl Creatinine 1.04 (0.6-1.4) mg/dl Est Cr Clr Drug Dosing 63.8 ml/min Est GFR ( Amer) 84.5 Est GFR (Non-Af Amer) 72.9 BUN/Creatinine Ratio 19.8 (10-20) Glucose 112 H (70-99) mg/dl Lactate (0.4-2.0) mmol/L Calcium 8.7 (8.5-10.1) mg/dl Magnesium 2.1 (1.8-2.4) mg/dl Total Bilirubin 0.7 (0.2-1) mg/dl AST 68 H (15-37) U/L ALT 220 H (12-78) U/L Alkaline Phosphatase 258 H (45-117) U/L Troponin I < 0.015 (0-0.045) ng/ml Total Protein 7.6 (6.4-8.2) gm/dl Albumin 3.2 L (3.4-5.0) gm/dl Globulin 4.4 H (2.5-4.0) gm/dl Albumin/Globulin Ratio 0.7 L (0.9-2) Lipase (73-393) U/L Urine Color Urine Appearance (Clear) Urine pH (4.5-7.5) Ur Specific [place] (1.000-1.030) Urine Protein (Negative) Urine Glucose (UA) (Negative) Urine Ketones (Negative) Urine Blood (Negative) Urine Nitrite (Negative) Urine Bilirubin (Negative) Urine Urobilinogen (Negative) Ur Leukocyte Esterase (Negative) Urine WBC (Auto) (0-5) /hpf Urine RBC (Auto) (0-4) /hpf U Hyaline Cast (Auto) (0-5) /lpf U Epithel Cells (Auto) (0-5) /lpf Urine Bacteria (Auto) (Negative) Influenza Type A (PCR) (Neg) Influenza Type B (PCR) (Neg) 08/01/19 08/01/19 08/01/19 Range/Units 16:20 16:26 16:30 WBC (4.8-10.8) K/uL RBC (4.7-6.1) M/uL Hgb (14.0-18.0) g/dL Hct (42-52) % MCV (80-100) fL MCH (25-34) pg MCHC (32-36) g/dL RDW Std Deviation (36.4-46.3) fL RDW Coeff of Carlos (11.5-14.5) % Plt Count (130-400) K/uL MPV (7.4-10.4) fL Immature Gran % (Auto) % Neut % (Auto) % Lymph % (Auto) % Hard[place] % (Auto) % Eos % (Auto) % Baso % (Auto) % Immature Gran # (Auto) (0.00-0.02) K/uL Neut # (Auto) (1.4-6.5) K/uL Lymph # (Auto) (1.2-3.4) K/uL Harding # (Auto) (0.11-0.59) K/uL Eos # (Auto) (0-0.5) K/uL Baso # (Auto) (0-0.2) K/uL PT (9.0-12.0) Seconds INR (0.9-1.1) APTT (21.0-31.0) Seconds PTT Ratio Sodium (136-145) mmol/L Potassium (3.5-5.1) mmol/L Chloride (98-107) mmol/L Carbon Dioxide (21-32) mmol/L Anion Gap (3-11) BUN (7-18) mg/dl Creatinine (0.6-1.4) mg/dl Est Cr Clr Drug Dosing ml/min Est GFR ( Amer) Est GFR (Non-Af Amer) BUN/Creatinine Ratio (10-20) Glucose (70-99) mg/dl Lactate 0.8 (0.4-2.0) mmol/L Calcium (8.5-10.1) mg/dl Magnesium (1.8-2.4) mg/dl Total Bilirubin (0.2-1) mg/dl AST (15-37) U/L ALT (12-78) U/L Alkaline Phosphatase (45-117) U/L Troponin I (0-0.045) ng/ml Total Protein (6.4-8.2) gm/dl Albumin (3.4-5.0) gm/dl Globulin (2.5-4.0) gm/dl Albumin/Globulin Ratio (0.9-2) Lipase 51 L (73-393) U/L Urine Color Urine Appearance (Clear) Urine pH (4.5-7.5) Ur Specific [place] (1.000-1.030) Urine Protein (Negative) Urine Glucose (UA) (Negative) Urine Ketones (Negative) Urine Blood (Negative) Urine Nitrite (Negative) Urine Bilirubin (Negative) Urine Urobilinogen (Negative) Ur Leukocyte Esterase (Negative) Urine WBC (Auto) (0-5) /hpf Urine RBC (Auto) (0-4) /hpf U Hyaline Cast (Auto) (0-5) /lpf U Epithel Cells (Auto) (0-5) /lpf Urine Bacteria (Auto) (Negative) Influenza Type A (PCR) Neg for Influ A (Neg) Influenza Type B (PCR) Neg for Influ B (Neg) 08/01/19 Range/Units 17:40 WBC (4.8-10.8) K/uL RBC (4.7-6.1) M/uL Hgb (14.0-18.0) g/dL Hct (42-52) % MCV (80-100) fL MCH (25-34) pg MCHC (32-36) g/dL RDW Std Deviation (36.4-46.3) fL RDW Coeff of Carlos (11.5-14.5) % Plt Count (130-400) K/uL MPV (7.4-10.4) fL Immature Gran % (Auto) % Neut % (Auto) % Lymph % (Auto) % Harding % (Auto) % Eos % (Auto) % Baso % (Auto) % Immature Gran # (Auto) (0.00-0.02) K/uL Neut # (Auto) (1.4-6.5) K/uL Lymph # (Auto) (1.2-3.4) K/uL Harding # (Auto) (0.11-0.59) K/uL Eos # (Auto) (0-0.5) K/uL Baso # (Auto) (0-0.2) K/uL PT (9.0-12.0) Seconds INR (0.9-1.1) APTT (21.0-31.0) Seconds PTT Ratio Sodium (136-145) mmol/L Potassium (3.5-5.1) mmol/L Chloride (98-107) mmol/L Carbon Dioxide (21-32) mmol/L Anion Gap (3-11) BUN (7-18) mg/dl Creatinine (0.6-1.4) mg/dl Est Cr Clr Drug Dosing ml/min Est GFR ( Amer) Est GFR (Non-Af Amer) BUN/Creatinine Ratio (10-20) Glucose (70-99) mg/dl Lactate (0.4-2.0) mmol/L Calcium (8.5-10.1) mg/dl Magnesium (1.8-2.4) mg/dl Total Bilirubin (0.2-1) mg/dl AST (15-37) U/L ALT (12-78) U/L Alkaline Phosphatase (45-117) U/L Troponin I (0-0.045) ng/ml Total Protein (6.4-8.2) gm/dl Albumin (3.4-5.0) gm/dl Globulin (2.5-4.0) gm/dl Albumin/Globulin Ratio (0.9-2) Lipase (73-393) U/L Urine Color Dark Yellow Urine Appearance Clear (Clear) Urine pH 6.0 (4.5-7.5) Ur Specific [place] 1.029 (1.000-1.030) Urine Protein Trace H (Negative) Urine Glucose (UA) Negative (Negative) Urine Ketones Trace H (Negative) Urine Blood Negative (Negative) Urine Nitrite Negative (Negative) Urine Bilirubin Negative (Negative) Urine Urobilinogen Negative (Negative) Ur Leukocyte Esterase Negative (Negative) Urine WBC (Auto) 1-5 (0-5) /hpf Urine RBC (Auto) 0-4 (0-4) /hpf U Hyaline Cast (Auto) 1-5 (0-5) /lpf U Epithel Cells (Auto) 20-30 H (0-5) /lpf Urine Bacteria (Auto) Negative (Negative) Influenza Type A (PCR) (Neg) Influenza Type B (PCR) (Neg) Imaging Data Radiologist's Impression: CHEST AND ABDOMEN 2 VIEWS HISTORY: epigastric pain COMPARISON: Chest 06/07/2019. FINDINGS: The lungs are clear. The cardiomediastinal silhouette is within normal limits. There is no pneumoperitoneum or pneumatosis. The bowel gas pattern is unremarkable. No evidence for bowel obstruction. No renal or ureteral calculi. There is a right upper quadrant percutaneous drainage catheter noted. IMPRESSION: No acute cardiopulmonary process. No evidence for bowel obstruction. ACT 112: Negative or not required by law. Electronically signed by: Dav Solitario M.D. 08/01/2019 5:46 PM Dictated: 08/01/191742 Transcribed: 08/01/191742 ABDOMEN AND PELVIS CT WITH IV CONTRAST CT DOSE: 384.41 mGycm HISTORY: Right upper quadrant epigastric pain. TECHNIQUE: Multiaxial CT images of the abdomen and pelvis were performed following the use of intravenous contrast. A dose lowering technique was utilized adhering to the principles of ALARA. COMPARISON STUDY: Abdomen and pelvis CT 06/07/2019. FINDINGS: Trace right pleural effusion. The left lung base is clear. No suspicious lytic or blastic osseous lesions. The liver, spleen, adrenal glands, and kidneys remain stable. Focal scarring within the lower pole the right kidney. No renal or ureteral stones. No hydronephrosis. No retroperitoneal lymphadenopathy. No significant change in the 4.5 x 4.3 cm infrarenal abdominal aortic aneurysm. Right-sided cholecystostomy tube remains in good position. Mild thickening within the gallbladder wall and trace pericholecystic fluid is noted. There is trace gas within the gallbladder lumen likely due to the catheter. Minimal inflammatory change along the course of the catheter has almost completely resolved. The main portal vein is patent. Mild bladder wall thicken ing is likely due to underdistention. The prostate gland is mildly enlarged. Focal thickening within the mid sigmoid colon mild pericolonic fat stranding consistent with acute diverticulitis. There is a small focus of gas and inflammatory change superior to the sigmoid colon best seen on image 320 which measures 11 mm. This is consistent with a focus of microperforation from the acute diverticulitis. Multiple colonic diverticula seen throughout the majority of the colon. No evidence for bowel obstruction. Normal appendix. Partially calcified 1 cm ileocolic lymph nodes, unchanged. IMPRESSION: 1. Trace right pleural effusion. 2. Right-sided cholecystostomy tube appears in good position. Mild gallbladder wall thickening and trace pericholecystic fluid which is similar to the prior study. Trace gas within the gallbladder lumen is likely due to the catheter. Minimal inflammatory change along the course of the catheter has almost completely resolved. 3. Acute sigmoid diverticulitis with an 11 mm focus of gas inflammatory change superior to the sigmoid colon. This is consistent with a focus of microperforation from the acute diverticulitis. 4. No change in the 4.5 x 4.3 cm infrarenal abdominal aortic aneurysm. ACT 112: Negative or not required by law. Electronically signed by: Dav Solitario M.D. 08/01/2019 6:12 PM Dictated: 08/01/19 1800 Transcribed: 08/01/19 1800 ECG Data Rate (beats per minute): 71 Rhythm: + normal sinus ECG Intervals/blocks: + Normal CA and + Normal QT-c Additional Comments: Sinus rhythm with rate of 71. CA and QTc intervals within normal limits. QRS 130. No ST elevation or ST depression. T wave inversion in lead V4 V5 and V6. Left ventricular hypertrophy present. T wave inversion in lead V4 and V5 are new when compared to the EKG done on June 07, 2019. MDM Narrative Vital signs stable. Labs within normal limits with exception of liver function test. White count within normal limits lactic acid within normal limits. CT of the abdomen shows that the cholecystectomy tube is in good position with trace pericholecystic fluid similar to prior study. Trace gas within the gallbladder lumen is most likely due to catheter. Minimal inflammatory change along the course of the catheter which is almost completely resolved. There is also sigmoid diverticulitis with an 11 mm focus of glass superior to the sigmoid colon consistent with a microperforation of diverticulitis. Patient will be treated with Zosyn. I did discuss the findings with Dr. Hoyos, general surgery, explained to him that the patient's symptoms include abdominal pain and fever most likely due to the diverticulitis and microperforation. I did asked Dr. Hoyos if he thought the patient needed to be transferred back to [facility] or if he could remain here. Dr. Hoyos reviewed the patient's symptoms with me thought that the patient should be admitted to the hospitalist service here at [facility] and he will be on consult. He states he will be down to evaluate the patient. I discussed the findings with Dr. Artur Cervantes hospitalist who agreed to the admission. Impression & Plan Diverticulitis, Perforation bowel Discharge Plan Visit Data Chief Complaint: Referred by Doctor Stated Complaint: POSSIBLE INFECTION - TUBE IN GALLBLADDER ED Provider: Robert Young Discharge Problem: Diverticulitis, Perforation bowel Patient Disposition: Being Evaluated by Hospitalist Forms Stand Alone Forms: My [facility] Prescriptions Prescriptions: No Action Entresto 24-26 mg Tablet 1 tab PO BID RF: 0 metoprolol succinate [Toprol XL] 50 mg Tablet Extended Release 24 Hr 50 mg PO QPM RF: 0 nitroglycerin 0.4 mg Tablet, Sublingual 0.4 mg sublingual DIRECTED PRN (Reason: Chest Pain) RF: 0 cilostazol 100 mg Tablet 100 mg PO BID RF: 0 hydrochlorothiazide 25 mg Tablet 12.5 mg PO TID RF: 0 Eliquis 5 mg tablet 5 mg PO BID RF: 0 acetaminophen [Tylenol Extra Strength] 500 mg Tablet 1,000 mg PO Q6H PRN (Reason: Pain) RF: 0 amiodarone 200 mg tablet 200 mg PO QAM RF: 0 Referrals Referrals: Owen Bowman [Primary Care Provider] -
[2019-08-01 16:45] LABS: Basophils # (auto) 0.03 K/uL (0-0.2); Basophils % (auto) 0.3 %; Eosinophils # (auto) 0.16 K/uL (0-0.5); Eosinophils % (auto) 1.6 %; Hematocrit (blood only) 35.8 % (42-52); Immature Granulocytes # (auto) 0.03 K/uL (0.00-0.02); Immature Granulocytes % (auto) 0.3 %; Lymphocytes # (auto) 1.37 K/uL (1.2-3.4); Lymphocytes % (auto) 13.3 %; Mean Corpuscular Hemoglobin 30.1 pg (25-34); Mean Corpuscular Hgb Conc 33.5 g/dL (32-36); Mean Corpuscular Volume 89.7 fL (80-100); Mean Platelet Volume 10.5 fL (7.4-10.4); Monocytes # (auto) 1.33 K/uL (0.11-0.59); Monocytes % (auto) 12.9 %; Neutrophils # (auto) 7.39 K/uL (1.4-6.5); Neutrophils % (auto) 71.6 %; Platelet Count 235 K/uL (130-400); RDW Coefficient of Variation 15.4 % (11.5-14.5); RDW Standard Deviation 50.1 fL (36.4-46.3); Red Blood Count 3.99 M/uL (4.7-6.1); White Blood Count 10.31 K/uL (4.8-10.8)
[2019-08-01 16:57] LABS: INR 1.1 (0.9-1.1); Partial Thromboplastin Ratio 1.4; Partial Thromboplastin Time 39.1 Seconds (21.0-31.0); Prothrombin Time 11.1 Seconds (9.0-12.0)
[2019-08-01 17:09] LABS: Alanine Aminotransferase 220 U/L (12-78); Albumin Level 3.2 gm/dl (3.4-5.0); Aspartate Aminotransferase 68 U/L (15-37); BUN Creatinine Ratio 19.8 (10-20); Blood Urea Nitrogen 21 mg/dl (7-18); Calcium 8.7 mg/dl (8.5-10.1); Carbon Dioxide 27 mmol/L (21-32); Chloride 103 mmol/L (98-107); Creatinine Clr Calc Pharmacy 63.8 ml/min; Est GFR (African American) 84.5; Est GFR (Non-African American) 72.9; Glucose 112 mg/dl (70-99); Magnesium 2.1 mg/dl (1.8-2.4); Potassium 3.2 mmol/L (3.5-5.1); Sodium 134 mmol/L (136-145)
[2019-08-01 17:14] LABS: Albumin Globulin Ratio 0.7 (0.9-2); Alkaline Phosphatase 258 U/L (45-117); Bilirubin,Total 0.7 mg/dl (0.2-1); Globulin 4.4 gm/dl (2.5-4.0); Total Protein 7.6 gm/dl (6.4-8.2); Troponin I < 0.015 ng/ml (0-0.045)
[2019-08-01 17:17] LABS: Influenza A virus by PCR Neg for Influ A (Neg); Influenza B virus by PCR Neg for Influ B (Neg)
[2019-08-01] MEDS ORDERED: IOVERSOL 100ml IV PRN (17:38)
--- NOTE | 2019-08-01 17:47 | XRay Report ---
CHEST AND ABDOMEN 2 VIEWS HISTORY: epigastric pain COMPARISON: Chest 06/07/2019. FINDINGS: The lungs are clear. The cardiomediastinal silhouette is within normal limits. There is no pneumoperitoneum or pneumatosis. The bowel gas pattern is unremarkable. No evidence for b owel obstruction. No renal or ureteral calculi. There is a right upper quadrant percutaneous drainage catheter noted. IMPRESSION: No acute cardiopulmonary process. No evidence for bowel obstruction. ACT 112: Negative or not required by law. Electronically signed by: Dav Solitario M.D. 08/01/2019 5:46 PM
[2019-08-01 17:50] LABS: Appearance Urine Clear (Clear); Bacteria Urine Automated Negative (Negative); Bilirubin Urine Negative (Negative); Blood Urine Negative (Negative); Color Urine Dark Yellow; Epithelial Cell Urine Auto 20-30 /lpf (0-5); Glucose Urine UA Negative (Negative); Ketones Urine Trace (Negative); Leukocyte Esterase Urine Negative (Negative); Nitrite Urine Negative (Negative); Protein Urine Trace (Negative); RBC Urine Automated 0-4 /hpf (0-4); Specific Gravity Urine 1.029 (1.000-1.030); Urobilinogen Urine Negative (Negative)
--- NOTE | 2019-08-01 18:13 | CT Scan Report ---
ABDOMEN AND PELVIS CT WITH IV CONTRAST CT DOSE: 384.41 mGycm HISTORY: Right upper quadrant epigastric pain. TECHNIQUE: Multiaxial CT images of the abdomen and pelvis were performed following the use of intrave nous contrast. A dose lowering technique was utilized adhering to the principles of ALARA. COMPARISON STUDY: Abdomen and pelvis CT 06/07/2019. FINDINGS: Trace right pleural effusion. The left lung base is clear. No suspicious lytic or blastic o sseous lesions. The liver, spleen, adrenal glands, and kidneys remain stable. Focal scarring within t he lower pole the right kidney. No renal or ureteral stones. No hydronephrosis. No retroperitoneal ly mphadenopathy. No significant change in the 4.5 x 4.3 cm infrarenal abdominal aortic aneurysm. Right- sided cholecystostomy tube remains in good position. Mild thickening within the gallbladder wall and trace pericholecystic fluid is noted. There is trace gas within the gallbladder lumen likely due to t he catheter. Minimal inflammatory change along the course of the catheter has almost completely resol ramírez. The main portal vein is patent. Mild bladder wall thickening is likely due to underdistention. T he prostate gland is mildly enlarged. Focal thickening within the mid sigmoid colon mild pericolonic fat stranding consistent with acute diverticulitis. There is a small focus of gas and inflammatory ch hero superior to the sigmoid colon best seen on image 320 which measures 11 mm. This is consistent wi th a focus of microperforation from the acute diverticulitis. Multiple colonic diverticula seen throu ghout the majority of the colon. No evidence for bowel obstruction. Normal appendix. Partially calcif ied 1 cm ileocolic lymph nodes, unchanged. IMPRESSION: 1. Trace right pleural effusion. 2. Right-sided cholecystostomy tube appears in good position. Mild gallbladder wall thickening and tr bhavani pericholecystic fluid which is similar to the prior study. Trace gas within the gallbladder lumen is likely due to the catheter. Minimal inflammatory change along the course of the catheter has almo st completely resolved. 3. Acute sigmoid diverticulitis with an 11 mm focus of gas inflammatory change superior to the sigmoi d colon. This is consistent with a focus of microperforation from the acute diverticulitis. 4. No change in the 4.5 x 4.3 cm infrarenal abdominal aortic aneurysm. ACT 112: Negative or not required by law. Electronically signed by: Dav Solitario M.D. 08/01/2019 6:12 PM
[2019-08-01] MEDS ORDERED: PIPERACILL/TAZOBAC CONSULT ACTIVE PRN ×2 (18:23→22:10)
[2019-08-01] MEDS ORDERED: PIPERACILLIN/TAZOBACTAM 4.5 GM/120 ML BAG IV ONE (18:23)
--- NOTE | 2019-08-01 20:15 | Surgery Consultation ---
Date of Consultation August 01, 2019 Assessment & Plan (1) Diverticulitis: pt is a 68 gunnar-old male who presents to Er with 3 days history abdominal pain, IMP: acute diverticulitis, with micro-perforation, S/P cholecystostomy tube, Plan, I agree with hospitalist will admit pt to hospital , no emergent surgery indication now, conservative treatment, iv antibiotic, IV fluid, correct low K, NPO except po meds, control pain, repeat labs in am, will F/U, pt and his agree with the plan, I answered all questions, History of Present Illness History of Present Illness History of Present Illness General Chief complaint: Referred by Doctor Stated complaint: POSSIBLE INFECTION - TUBE IN GALLBLADDER Time Seen by Provider: 08/01/19 15:59 History of Present Illness Provider complaint: Abdominal pain Onset (ago): day(s) 3 Location: abdomen Maximum Pain Intensity: 2 Current Pain Intensity: 2 68-year-old male with history of having a cholangiotube placed at [facility] presents with abdominal pain and fever. Patient reports his abdominal pain and fever began on Thursday. T-max 100.6. He states his pain began on Thursday and it was "20 out of 10" he states his pain is since resolved and he is currently only having a 2 out of 10 pain. Pain is located in the right upper quadrant and epigastric area. Patient also does note that he had some brown discharge coming out of his tube and his stents become normal. He also reports a productive cough and dark urine. He states he spoke with his PCP and told him to come to the emergency department. I ( Maria T Hoyos MD ) reviewed pt's H/P, labs, CT scan with pt and his , pt is still have some RUQ and LLQ pain, Home Medications Home Medications Medication Instructions Recorded Confirmed Type cilostazol 100 mg PO BID 03/12/18 08/01/19 History hydrochlorothiazide 12.5 mg PO TID 03/12/18 08/01/19 History Entresto 1 tab PO BID 05/12/19 08/01/19 History metoprolol succinate [Toprol XL] 50 mg PO QPM 05/12/19 08/01/19 History nitroglycerin 0.4 mg SUBLINGUAL DIRECTED PRN 05/12/19 08/01/19 History acetaminophen [Tylenol Extra 1,000 mg PO Q6H PRN 06/07/19 08/01/19 History Strength] apixaban [Eliquis] 5 mg PO BID 06/07/19 08/01/19 History amiodarone 200 mg PO QAM 08/01/19 08/01/19 History Allergies Allergy/AdvReac Type Severity Reaction Status Date / Time adhesive AdvReac Mild Blister Verified 08/01/19 16:51 magnesium AdvReac Mild Diarrhea Verified 08/01/19 16:51 NSAIDS (Non-Steroidal AdvReac Mild Gastrointestinal Verified 08/01/19 16:51 Anti-Inflamma Upset Pxjazaj-[id number]-Xox Reductase AdvReac Mild Diarrhea Verified 08/01/19 16:51 Inhibitor fenofibrate AdvReac Diarrhea Verified 08/01/19 16:51 olmesartan [From Benicar] AdvReac Diarrhea Verified 08/01/19 16:51 quinapril [From Accupril] AdvReac Confusion Verified 08/01/19 16:51 Past Med/Surg History Medical History Abnormal diagnostic test result Abnormal cologuard result CVA (cerebral vascular accident) 04/2019 when off ASA for his planned CABG (which did not happen) 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 - seesDr Jose History of irregular heartbeat Hypertension Ischemic cardiomyopathy Surgical History History of detached retina repair Hx of cardiac catheterization [place] - stents x3 - done at [facility] Hx of cataract right and left Hx of tooth extraction Family History Brother Myocardial infarction Sister Myocardial infarction Father Myocardial infarction Social History Preferred Language: Bengali Communication Ability: Effective Design Tech Required: No Beliefs That Will Affect Care: None Current Living Situation: Spouse Feels Safe at Home: Yes Smoking Status: Former smoker Hx Alcohol Use: No Hx Substance Use: No Review of Systems A total of 10 systems reviewed and were otherwise negative Allergies Allergy/AdvReac Type Severity Reaction Status Date / Time adhesive AdvReac Mild Blister Verified 08/01/19 16:51 magnesium AdvReac Mild Diarrhea Verified 08/01/19 16:51 NSAIDS (Non-Steroidal AdvReac Mild Gastrointestinal Verified 08/01/19 16:51 Anti-Inflamma Upset Veeytdh-Sjm-Itv Reductase AdvReac Mild Diarrhea Verified 08/01/19 16:51 Inhibitor fenofibrate AdvReac Diarrhea Verified 08/01/19 16:51 olmesartan [From Benicar] AdvReac Diarrhea Verified 08/01/19 16:51 quinapril [From Accupril] AdvReac Confusion Verified 08/01/19 16:51 Home Medications Home Medications Medication Instructions Recorded Confirmed Type cilostazol 100 mg PO BID 03/12/18 08/01/19 History hydrochlorothiazide 12.5 mg PO TID 03/12/18 08/01/19 History Entresto 1 tab PO BID 05/12/19 08/01/19 History metoprolol succinate [Toprol XL] 50 mg PO QPM 05/12/19 08/01/19 History nitroglycerin 0.4 mg SUBLINGUAL DIRECTED PRN 05/12/19 08/01/19 History acetaminophen [Tylenol Extra 1,000 mg PO Q6H PRN 06/07/19 08/01/19 History Strength] apixaban [Eliquis] 5 mg PO BID 06/07/19 08/01/19 History amiodarone 200 mg PO QAM 08/01/19 08/01/19 History Patient History Medical History Abnormal diagnostic test result Abnormal cologuard result CVA (cerebral vascular accident) 04/2019 when off ASA for his planned CABG (which did not happen) 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 - Gisel Garcia History of irregular heartbeat Hypertension Ischemic cardiomyopathy Surgical History History of detached retina repair Hx of cardiac catheterization [place] - stents x3 - done at [facility] Hx of cataract right and left Hx of tooth extraction Family History Brother Myocardial infarction Sister Myocardial infarction Father Myocardial infarction Social History Preferred Language: Bengali Communication Ability: Effective Design Tech Required: No Beliefs That Will Affect Care: None Current Living Situation: Spouse Feels Safe at Home: Yes Smoking Status: Former smoker Hx Alcohol Use: No Hx Substance Use: No Review of Systems Review of Systems: All systems reviewed & are unremarkable except as noted in HPI & below Constitutional: as per Subjective / HPI Respiratory: as per Subjective / HPI Cardiovascular: as per Subjective / HPI Additional Comments: CVA, ischemic cardiomyopathy, AAA, HTN Gastrointestinal: cholecystostomy tube, cholecystitis Musculoskeletal: as per Subjective / HPI Integumentary: as per Subjective / HPI Neurologic: as per Subjective / HPI CVA Psychiatric: as per Subjective / HPI Endocrine: as per Subjective / HPI Hematologic / Lymphatic: as per Subjective / HPI Allergy / Immunological: as per Subjective / HPI Physical Exam Constitutional: WD/WN, vitals as above well developed and well nourished Eyes: PERRL, conjunctivae normal, anicteric sclerae ENMT: external ear and nose normal, oropharynx normal Neck: trachea midline, no thyromegaly Respiratory: normal respiratory effort, lungs clear to auscultation normal respiratory effort Cardiovascular: RRR, no murmur, no edema Rate/Rhythm: regular rate and regular rhythm Heart Sounds: normal S1 and normal S2 Gastrointestinal (Abdomen): normal bowel sounds, soft, nontender, no hepatosplenomegaly Percussion/Palpation: + abdomen tender and abdomen soft tenderness at RUQ, and LLQ, no rebound pain, BS +, no distend Musculoskeletal: no cyanosis or clubbing, extremities motor strength 5/5 Skin: no rashes, warm and dry Neurologic: patellar DTR's 2+ bilat, sensation intact Psychiatric: Orientation: alert and oriented x 3 Results & Data Vital Signs (Past 12 Hours) Vital Signs Temp Pulse Pulse Resp BP BP Pulse Ox 08/01/19 19:31 68 19 148/75 H 97 08/01/19 19:00 68 24 167/83 H 97 08/01/19 18:30 67 20 138/78 98 08/01/19 18:05 71 24 183/96 H 98 08/01/19 17:30 66 65 23 148/75 H 148/75 H 96 08/01/19 17:00 67 17 128/82 96 08/01/19 16:36 96 08/01/19 16:35 71 20 132/66 96 08/01/19 16:33 71 27 H 132/66 94 08/01/19 15:53 36.8 C 86 20 116/73 96 Laboratory Results Abnormal lab results 08/01/19 08/01/19 08/01/19 Range/Units 16:20 16:20 16:20 RBC 3.99 L (4.7-6.1) M/uL Hgb 12.0 L (14.0-18.0) g/dL Hct 35.8 L (42-52) % RDW Std Deviation 50.1 H (36.4-46.3) fL RDW Coeff of Carlos 15.4 H (11.5-14.5) % MPV 10.5 H (7.4-10.4) fL Immature Gran # (Auto) 0.03 H (0.00-0.02) K/uL Neut # (Auto) 7.39 H (1.4-6.5) K/uL [place] # (Auto) 1.33 H (0.11-0.59) K/uL APTT 39.1 H (21.0-31.0) Seconds Sodium 134 L (136-145) mmol/L Potassium 3.2 L (3.5-5.1) mmol/L BUN 21 H (7-18) mg/dl Glucose 112 H (70-99) mg/dl AST 68 H (15-37) U/L ALT 220 H (12-78) U/L Alkaline Phosphatase 258 H (45-117) U/L Albumin 3.2 L (3.4-5.0) gm/dl Globulin 4.4 H (2.5-4.0) gm/dl Albumin/Globulin Ratio 0.7 L (0.9-2) Lipase (73-393) U/L Urine Protein (Negative) Urine Ketones (Negative) U Epithel Cells (Auto) (0-5) /lpf 08/01/19 08/01/19 Range/Units 16:20 17:40 RBC (4.7-6.1) M/uL Hgb (14.0-18.0) g/dL Hct (42-52) % RDW Std Deviation (36.4-46.3) fL RDW Coeff of Carlos (11.5-14.5) % MPV (7.4-10.4) fL Immature Gran # (Auto) (0.00-0.02) K/uL Neut # (Auto) (1.4-6.5) K/uL [place] # (Auto) (0.11-0.59) K/uL APTT (21.0-31.0) Seconds Sodium (136-145) mmol/L Potassium (3.5-5.1) mmol/L BUN (7-18) mg/dl Glucose (70-99) mg/dl AST (15-37) U/L ALT (12-78) U/L Alkaline Phosphatase (45-117) U/L Albumin (3.4-5.0) gm/dl Globulin (2.5-4.0) gm/dl Albumin/Globulin Ratio (0.9-2) Lipase 51 L (73-393) U/L Urine Protein Trace H (Negative) Urine Ketones Trace H (Negative) U Epithel Cells (Auto) 20-30 H (0-5) /lpf Diagnostic Findings ABDOMEN AND PELVIS CT WITH IV CONTRAST CT DOSE: 384.41 mGycm HISTORY: Right upper quadrant epigastric pain. TECHNIQUE: Multiaxial CT images of the abdomen and pelvis were performed following the use of intravenous contrast. A dose lowering technique was utilized adhering to the principles of ALARA. COMPARISON STUDY: Abdomen and pelvis CT 06/07/2019. FINDINGS: Trace right pleural effusion. The left lung base is clear. No suspicious lytic or blastic osseous lesions. The liver, spleen, adrenal glands, and kidneys remain stable. Focal scarring within the lower pole the right kidney. No renal or ureteral stones. No hydronephrosis. No retroperitoneal lymphadenopathy. No significant change in the 4.5 x 4.3 cm infrarenal abdominal aortic aneurysm. Right-sided cholecystostomy tube remains in good position. Mild thickening within the gallbladder wall and trace pericholecystic fluid is noted. There is trace gas within the gallbladder lumen likely due to the catheter. Minimal inflammatory change along the course of the catheter has almost completely resolved. The main portal vein is patent. Mild bladder wall thickening is likely due to underdistention. The prostate gland is mildly enlarged. Focal thickening within the mid sigmoid colon mild pericolonic fat stranding consistent with acute diverticulitis. There is a small focus of gas and inflammatory change superior to the sigmoid colon best seen on image 320 which measures 11 mm. This is consistent with a focus of microperforation from the acute diverticulitis. Multiple colonic diverticula seen throughout the majority of the colon. No evidence for bowel obstruction. Normal appendix. Partially calcified 1 cm ileocolic lymph nodes, unchanged. IMPRESSION: 1. Trace right pleural effusion. 2. Right-sided cholecystostomy tube appears in good position. Mild gallbladder wall thickening and trace pericholecystic fluid which is similar to the prior study. Trace gas within the gallbladder lumen is likely due to the catheter. Minimal inflammatory change along the course of the catheter has almost completely resolved. 3. Acute sigmoid diverticulitis with an 11 mm focus of gas inflammatory change superior to the sigmoid colon. This is consistent with a focus of microperforation from the acute diverticulitis. 4. No change in the 4.5 x 4.3 cm infrarenal abdominal aortic aneurysm.
--- NOTE | 2019-08-01 21:12 | History & Physical Report ---
Date of Service August 01, 2019 Assessment & Plan (1) Diverticulitis: 68 yo M PMHx HTN, CAD s/p stent placement 2001, ischemic cardiomyopathy with EF 35% on last Echo, AAA, CVA, diverticulosis, recurrent cholecystitis with cholecystostomy requiring admission for acute treatment of diverticulitis with micro perforation. Diverticulitis with microperforation: - Dr. Hoyos following. No urgent need to transfer to [facility] for care, no urgent need for surgery at this time. - Hx of diverticulosis on colonoscopy 1 year prior without diverticulitis. - CTAP this admission showed: Acute sigmoid diverticulitis with an 11 mm focus of gas inflammatory change superior to the sigmoid colon. This is consistent with a focus of microperforation from the acute diverticulitis. - Labwork this admission shows white count of 10.31 with a neutrophil predominance. Pt afebrile since arrival. - Continue Zosyn therapy q8h, NPO except medications, IVF. - Continue to follow CBC, CMP daily while admitted. Elevated LFTs: - Likely 2/2 history of recurrent cholecystitis/cystic duct obstruction with cholecystostomy. - Will continue to trend. - Cholecystostomy site draining clear green fluid and surgical site is without signs of infection. - Will need coordination with physicians at [facility] regarding ongoing care of cholecystostomy tube; supposed to have appointment September 17 regarding possible replacement vs. removal. CAD (chronic): - Hx of [place] with intention to have CABG back in May of this year however this was postponed first due to CVA, then again due to cholecystitis. - Follows with Dr. Newman. - nitroglycerin PRN chest pain. - Hold Toprol XL at this time. - On cilostazol for hx peripheral vascular disease; will continue. - Will eventually require follow up with [facility] regarding possibility of CABG given extensive CAD. Paroxysmal AFib: - Pt currently in sinus rhythm. - No chest pain, palpitations. - Holding Eliquis and have started heparin drip to allow for rapid reversal in the event of surgery. - Continue amiodarone for rhythm control. Benign Essential HTN: - Hold HCTZ, Toprol XL, Entresto. - Continue to monitor BP. Pt with infrequent elevated BPs so far however if further elevation can consider addition of home medications in step-hess fashion. Chronic systolic HF: - Hold Entresto at this time; pt NPO except essential medications. - Last Echo 04/2019 showed moderate left ventricular dilation with with EF 35%. - No RV function abnormalities, no valvular abnormalities. - Inferior/lateral wall akinesis. AAA: - Chronic, receives biannual imaging to monitor. - CTAP showed no change in the 4.5 x 4.3 cm infrarenal abdominal aortic aneurysm. Code Status: FULL CODE, discussed with patient and patient's FEN/GI: NPO except medications; IVF NSS @ 80cc/hr DVT ppx: started on Heparin drip at this time and d/c'ed Eliquis in the event of surgery this admission Dispo: med/surg; expect admission for several days for Abx treatment and monitoring of diverticulitis (2) Afib: (3) CHF (congestive heart failure): (4) AAA (abdominal aortic aneurysm): (5) Renal infarct: (6) Ischemic cardiomyopathy: (7) DVT prophylaxis: (8) Hypertension: (9) CVA (cerebral vascular accident): (10) Elevated LFTs: Admission and Anticipated Discharge Date Admission Date: 08/01/2019 History of Present Illness Chief Complaint: abdominal pain Primary Care Provider: Owen Bowman 68 yo M PMHx HTN, CAD (s/p stent placement 2001), ischemic cardiomyopathy with EF 35% on last Echo, AAA, CVA, diverticulosis, recurrent cholecystitis with cholecystostomy placed this June presents to hospital for epigastric to RUQ abdominal pain x3 days with associated fevers to Tmax 100.6 and non-bloody diarrhea but without associated nausea or vomiting. Reports that 3 days ago he started having consistent 10/10 cramping abdominal pain in his epigastric to RUQ pain that was not associated with position or with food intake. He assumed at the time that it was related to his gallbladder disease and did not eat anything for about 36 hours to try to "calm his system down". After about 36 hours the pain started being more intermittent with 2/10 pain at rest and then 10/10 pain that would come on suddenly and disappear after a few minutes to an hour. Since yesterday has been 2/10 pain consistently. He also reports fevers over the weekend to Tmax of 100.6 which he took Tylenol for which alleviated his fever but not his pain when it was at its most severe. Since yesterday has been able to tolerate small meals including a bowl of cream of wheat and a bowl of chicken noodle soup without increase in pain or nausea. Has a history of cholecystitis and follows at [facility] for intermittent replacement of his cholecystostomy tube, next appointment with Dr. Rees in September. At this time denies shortness of breath, chest pain, palpitations, dizziness, headaches, URI symptoms, sick contacts, recent travel. Allergies Allergy/AdvReac Type Severity Reaction Status Date / Time adhesive AdvReac Mild Blister Verified 08/01/19 16:51 magnesium AdvReac Mild Diarrhea Verified 08/01/19 16:51 NSAIDS (Non-Steroidal AdvReac Mild Gastrointestinal Verified 08/01/19 16:51 Anti-Inflamma Upset [id number] Reductase AdvReac Mild Diarrhea Verified 08/01/19 16:51 Inhibitor fenofibrate AdvReac Diarrhea Verified 08/01/19 16:51 olmesartan [From Benicar] AdvReac Diarrhea Verified 08/01/19 16:51 quinapril [From Accupril] AdvReac Confusion Verified 08/01/19 16:51 Home Medications Home Medications Medication Instructions Recorded Confirmed Type cilostazol 100 mg PO BID 03/12/18 08/01/19 History hydrochlorothiazide 12.5 mg PO TID 03/12/18 08/01/19 History Entresto 1 tab PO BID 05/12/19 08/01/19 History metoprolol succinate [Toprol XL] 50 mg PO QPM 05/12/19 08/01/19 History nitroglycerin 0.4 mg SUBLINGUAL DIRECTED PRN 05/12/19 08/01/19 History acetaminophen [Tylenol Extra 1,000 mg PO Q6H PRN 06/07/19 08/01/19 History Strength] apixaban [Eliquis] 5 mg PO BID 06/07/19 08/01/19 History amiodarone 200 mg PO QAM 08/01/19 08/01/19 History Past Med/Surg History Surgical History History of detached retina repair Hx of cardiac catheterization 2001 Post [place] - stents x3 - done at [facility] Hx of cataract right and left Hx of tooth extraction Family History Brother Myocardial infarction Sister Myocardial infarction Father Myocardial infarction Social History Preferred Language: Icelandic Communication Ability: Effective Sales Representatives Required: No Beliefs That Will Affect Care: None Current Living Situation: Spouse Other Information That Helps Us Care for You: No Feels Safe at Home: Yes Safety Concerns: Feels Safe At This Time Smoking Status: Former smoker Do You Dip or Chew Tobacco: No ; Second Hand Exposure: No ; Tobacco Cessation Education Requested by Patient: No Hx Alcohol Use: Yes Alcohol type: wine Hx Substance Use: No Review of Systems Review of Systems: All systems reviewed & are unremarkable except as noted in HPI & below Physical Exam Constitutional: WD/WN, vitals as above Eyes: + anicteric sclerae ENMT: external ear and nose normal, oropharynx normal Neck: trachea midline, no thyromegaly Respiratory: normal respiratory effort, lungs clear to auscultation Cardiovascular: RRR, no murmur, no edema Vessels: no JVD Gastrointestinal (Abdomen): Inspection/Auscultation: normal bowel sounds Percussion/Palpation: + abdomen tender (RUQ and epigastric regions) and abdomen soft; no guarding Musculoskeletal: no cyanosis or clubbing, extremities motor strength 5/5 Skin: no rashes, warm and dry Psychiatric: A+Ox3, euthymic affect Results & Data Results & [facility] Vital Signs (Past 12 Hours) Vital Signs Temp Pulse Pulse Resp BP BP Pulse Ox 08/01/19 20:30 73 20 156/88 H 98 08/01/19 20:01 75 21 162/71 H 98 08/01/19 19:31 68 19 148/75 H 97 08/01/19 19:00 68 24 167/83 H 97 08/01/19 18:30 67 20 138/78 98 08/01/19 18:05 71 24 183/96 H 98 08/01/19 17:30 66 65 23 148/75 H 148/75 H 96 08/01/19 17:00 67 17 128/82 96 08/01/19 16:36 96 08/01/19 16:35 71 20 132/66 96 08/01/19 16:33 71 27 H 132/66 94 08/01/19 15:53 36.8 C 86 20 116/73 96 Laboratory Results Laboratory Results - last 24 hr 08/01/19 08/01/19 08/01/19 16:20 16:20 16:20 WBC 10.31 RBC 3.99 L Hgb 12.0 L Hct 35.8 L MCV 89.7 MCH 30.1 MCHC 33.5 RDW Std Deviation 50.1 H RDW Coeff of Carlos 15.4 H Plt Count 235 MPV 10.5 H Immature Gran % (Auto) 0.3 Neut % (Auto) 71.6 Lymph % (Auto) 13.3 [place] % (Auto) 12.9 Eos % (Auto) 1.6 Baso % (Auto) 0.3 Immature Gran # (Auto) 0.03 H Neut # (Auto) 7.39 H Lymph # (Auto) 1.37 [place] # (Auto) 1.33 H Eos # (Auto) 0.16 Baso # (Auto) 0.03 PT 11.1 INR 1.1 APTT 39.1 H PTT Ratio 1.4 Sodium 134 L Potassium 3.2 L Chloride 103 Carbon Dioxide 27 Anion Gap 4.0 BUN 21 H Creatinine 1.04 Est Cr Clr Drug Dosing 63.8 Est GFR ( Amer) 84.5 Est GFR (Non-Af Amer) 72.9 BUN/Creatinine Ratio 19.8 Glucose 112 H Lactate Calcium 8.7 Magnesium 2.1 Total Bilirubin 0.7 AST 68 H ALT 220 H Alkaline Phosphatase 258 H Troponin I < 0.015 Total Protein 7.6 Albumin 3.2 L Globulin 4.4 H Albumin/Globulin Ratio 0.7 L Lipase Urine Color Urine Appearance Urine pH Ur Specific [place] Urine Protein Urine Glucose (UA) Urine Ketones Urine Blood Urine Nitrite Urine Bilirubin Urine Urobilinogen Ur Leukocyte Esterase Urine WBC (Auto) Urine RBC (Auto) U Hyaline Cast (Auto) U Epithel Cells (Auto) Urine Bacteria (Auto) Influenza Type A (PCR) Influenza Type B (PCR) 08/01/19 08/01/19 08/01/19 16:20 16:26 16:30 WBC RBC Hgb Hct MCV MCH MCHC RDW Std Deviation RDW Coeff of Carlos Plt Count MPV Immature Gran % (Auto) Neut % (Auto) Lymph % (Auto) [place] % (Auto) Eos % (Auto) Baso % (Auto) Immature Gran # (Auto) Neut # (Auto) Lymph # (Auto) [place] # (Auto) Eos # (Auto) Baso # (Auto) PT INR APTT PTT Ratio Sodium Potassium Chloride Carbon Dioxide Anion Gap BUN Creatinine Est Cr Clr Drug Dosing Est GFR ( Amer) Est GFR (Non-Af Amer) BUN/Creatinine Ratio Glucose Lactate 0.8 Calcium Magnesium Total Bilirubin AST ALT Alkaline Phosphatase Troponin I Total Protein Albumin Globulin Albumin/Globulin Ratio Lipase 51 L Urine Color Urine Appearance Urine pH Ur Specific [place] Urine Protein Urine Glucose (UA) Urine Ketones Urine Blood Urine Nitrite Urine Bilirubin Urine Urobilinogen Ur Leukocyte Esterase Urine WBC (Auto) Urine RBC (Auto) U Hyaline Cast (Auto) U Epithel Cells (Auto) Urine Bacteria (Auto) Influenza Type A (PCR) Neg for Influ A Influenza Type B (PCR) Neg for Influ B 08/01/19 17:40 WBC RBC Hgb Hct MCV MCH MCHC RDW Std Deviation RDW Coeff of Carlos Plt Count MPV Immature Gran % (Auto) Neut % (Auto) Lymph % (Auto) [place] % (Auto) Eos % (Auto) Baso % (Auto) Immature Gran # (Auto) Neut # (Auto) Lymph # (Auto) [place] # (Auto) Eos # (Auto) Baso # (Auto) PT INR APTT PTT Ratio Sodium Potassium Chloride Carbon Dioxide Anion Gap BUN Creatinine Est Cr Clr Drug Dosing Est GFR ( Amer) Est GFR (Non-Af Amer) BUN/Creatinine Ratio Glucose Lactate Calcium Magnesium Total Bilirubin AST ALT Alkaline Phosphatase Troponin I Total Protein Albumin Globulin Albumin/Globulin Ratio Lipase Urine Color Dark Yellow Urine Appearance Clear Urine pH 6.0 Ur Specific [place] 1.029 Urine Protein Trace H Urine Glucose (UA) Negative Urine Ketones Trace H Urine Blood Negative Urine Nitrite Negative Urine Bilirubin Negative Urine Urobilinogen Negative Ur Leukocyte Esterase Negative Urine WBC (Auto) 1-5 Urine RBC (Auto) 0-4 U Hyaline Cast (Auto) 1-5 U Epithel Cells (Auto) 20-30 H Urine Bacteria (Auto) Negative Influenza Type A (PCR) Influenza Type B (PCR) Supervising Physician Co-Signing Physician Notes Attending addendum: I have physically seen this patient, have supervised the medical residents activities, and agree with the H&P unless as otherwise noted. Assessment and Plan: Acute sigmoid diverticulitis with microperforation- NPO IV fluids Zosyn 4.5 g IV every 8 hours Zofran 4 mg IV every 6 hours as needed nausea Followed by general surgery Dr. Hoyos Elevated LFTs/recurrent cholecystitis and cystic duct obstruction with cholecystostomy tube- N.p.o. as noted, IV antibiotics as noted. Continue case with [facility] in a.m. Paroxysmal atrial fibrillation/CAD/hypertension/chronic systolic CHF- Holding oral medications at this point while n.p.o. Follow serial troponins. Remainder orders and notations as noted. Resident Activity Tracking Resident Involvement: Resident Care Provided Care Provided: Adult [facility] (1) AAA (abdominal aortic aneurysm) Presence of rupture: without rupture Qualified Code(s): I71.4 - Abdominal aortic aneurysm, without rupture (2) CHF (congestive heart failure) Heart failure chronicity: chronic Heart failure type: unspecified Qualified Code(s): I50.9 - Heart failure, unspecified (3) Afib Atrial fibrillation type: paroxysmal Qualified Code(s): I48.0 - Paroxysmal atrial fibrillation (4) Hypertension Hypertension type: essential hypertension Qualified Code(s): I10 - Essential (primary) hypertension (5) CVA (cerebral vascular accident) CVA mechanism: unspecified Qualified Code(s): I63.9 - Cerebral infarction, unspecified
[2019-08-01] MEDS ORDERED: NITROGLYCERIN SL 0.4 MG/TAB TAB SL PRN (22:10)
[2019-08-01] MEDS ORDERED: HEPARIN SODIUM/DEXTROSE 25,000 UNITS/500 ML BAG IV SCH (22:10)
[2019-08-01] MEDS ORDERED: POLYETHYLENE (MIRALAX) 17 GM PACK PO PRN (22:10)
[2019-08-01] MEDS ORDERED: Heparin IV Standard *NO* Bolus IV SCH (22:20)
[2019-08-01] MEDS: SODIUM CHLORIDE 0.9% 500 ML IV SCH (23:06)
[2019-08-01] MEDS: cilostazoL 100 MG TAB PO SCH (23:36)
[2019-08-02] MEDS: PIPERACILLIN/TAZOBACTAM 3.375 GM in DEXTROSE 5% 100 ML IV SCH ×3 (00:39→16:18)
[2019-08-02] MEDS: SODIUM CHLORIDE 0.9% 500 ML IV SCH (05:30)
[2019-08-02 05:46] LABS: Basophils # (auto) 0.03 K/uL (0-0.2); Basophils % (auto) 0.3 %; Eosinophils # (auto) 0.16 K/uL (0-0.5); Eosinophils % (auto) 1.8 %; Hematocrit (blood only) 32.7 % (42-52); Immature Granulocytes # (auto) 0.02 K/uL (0.00-0.02); Immature Granulocytes % (auto) 0.2 %; Lymphocytes # (auto) 1.44 K/uL (1.2-3.4); Lymphocytes % (auto) 16.2 %; Mean Corpuscular Hemoglobin 30.1 pg (25-34); Mean Corpuscular Hgb Conc 33.6 g/dL (32-36); Mean Corpuscular Volume 89.3 fL (80-100); Mean Platelet Volume 10.2 fL (7.4-10.4); Monocytes # (auto) 1.13 K/uL (0.11-0.59); Monocytes % (auto) 12.7 %; Neutrophils # (auto) 6.09 K/uL (1.4-6.5); Neutrophils % (auto) 68.8 %; Platelet Count 202 K/uL (130-400); RDW Coefficient of Variation 15.2 % (11.5-14.5); RDW Standard Deviation 49.8 fL (36.4-46.3); Red Blood Count 3.66 M/uL (4.7-6.1); White Blood Count 8.87 K/uL (4.8-10.8)
[2019-08-02 06:24] LABS: Albumin Globulin Ratio 0.6 (0.9-2); Albumin Level 2.6 gm/dl (3.4-5.0); BUN Creatinine Ratio 15.2 (10-20); Bilirubin,Total 0.7 mg/dl (0.2-1); Calcium 8.1 mg/dl (8.5-10.1); Creatinine Clr Calc Pharmacy 84.5 ml/min; Est GFR (African American) 107.3; Est GFR (Non-African American) 92.6; Potassium 2.9 mmol/L (3.5-5.1); Total Protein 6.6 gm/dl (6.4-8.2)
[2019-08-02 06:26] LABS: Partial Thromboplastin Time 55.7 Seconds (21.0-31.0)
[2019-08-02] MEDS: cilostazoL 100 MG TAB PO SCH ×2 (08:09→20:14)
[2019-08-02] MEDS: AMIODARONE 200 MG TAB PO SCH (08:09)
[2019-08-02] MEDS: POTASSIUM CHLORIDE 40 MEQ in SODIUM CHLORIDE 0.9% 1000ML 1,000 ML IV SCH ×2 (08:38→21:58)
[2019-08-02] MEDS: POTASSIUM CHLORIDE / WTR 10 MEQ/100 ML PLCT IV SCH ×2 (08:43→09:56)
--- NOTE | 2019-08-02 09:37 | Electrocardiogram Report ---
Test Reason : Blood Pressure : / mmHG Vent. Rate : 071 BPM Atrial Rate : 071 BPM P-R Int : 180 ms QRS Dur : 130 ms QT Int : 446 ms P-R-T Axes : 051 -06 103 degrees QTc Int : 484 ms Normal sinus rhythm Left ventricular hypertrophy with QRS widening and repolarization abnormality Abnormal ECG When compared with ECG of 07-JUN-2019 09:05, Premature supraventricular complexes are no longer Present T wave inversion now evident in Anterior leads Confirmed by Adolfo Tapia ([id number]) on 08/02/2019 9:36:44 AM Referred By: Keven Newman Confirmed By:Adolfo Tapia
--- NOTE | 2019-08-02 11:36 | Surgery Progress Note ---
Date of Service August 02, 2019 Assessment & Plan (1) Diverticulitis: Diverticulitis of sigmoid colon with microperforation, no abscess -afebrile, no leukocytosis - epigastric upper abdominal pain, no LLQ abdominal pain Plan: Advance to clear liquids, advised to take slowly continue pain management as needed Continue IV ABx, Zosyn Will need follow-up with [facility] for perc cholecystostomy tube encouraged ambulation continue medical management, will follow Dr. Hoyos has seen and examined pt, agrees with above Subjective feeling better still having some abdominal pain, mostly mid abdomen under sternum. No LLQ abdominal pain no nausea or vomiting Physical Exam Constitutional: WD/WN, vitals as above no acute distress Respiratory: normal respiratory effort; no respiratory distress Gastrointestinal (Abdomen): Inspection/Auscultation: abdomen not distended Percussion/Palpation: + abdomen tender (epigastrium) and abdomen soft; no guarding and abdomen not rigid percutaneous cholecystostomy tube present Skin: no rashes, warm and dry Psychiatric: A+Ox3, euthymic affect Results & Data Vital Signs (Past 12 Hours) Vital Signs Temp Pulse Resp BP Pulse Ox 08/02/19 08:39 36.7 C 61 20 109/64 95 Laboratory Results 08/02/19 08/02/19 08/02/19 Range/Units 05:26 05:26 05:26 WBC (4.8-10.8) K/uL RBC (4.7-6.1) M/uL Hgb (14.0-18.0) g/dL Hct (42-52) % MCV (80-100) fL MCH (25-34) pg MCHC (32-36) g/dL RDW Std Deviation (36.4-46.3) fL RDW Coeff of Carlos (11.5-14.5) % Plt Count (130-400) K/uL MPV (7.4-10.4) fL Immature Gran % (Auto) % Neut % (Auto) % Lymph % (Auto) % [place] % (Auto) % Eos % (Auto) % Baso % (Auto) % Immature Gran # (Auto) (0.00-0.02) K/uL Neut # (Auto) (1.4-6.5) K/uL Lymph # (Auto) (1.2-3.4) K/uL [place] # (Auto) (0.11-0.59) K/uL Eos # (Auto) (0-0.5) K/uL Baso # (Auto) (0-0.2) K/uL PT (9.0-12.0) Seconds INR (0.9-1.1) APTT 55.7 H* (21.0-31.0) Seconds PTT Ratio 2.0 Sodium 137 (136-145) mmol/L Potassium 2.9 L (3.5-5.1) mmol/L Chloride 105 (98-107) mmol/L Carbon Dioxide 26 (21-32) mmol/L Anion Gap 6.0 (3-11) BUN 12 (7-18) mg/dl Creatinine 0.77 (0.6-1.4) mg/dl Est Cr Clr Drug Dosing 84.5 ml/min Est GFR ( Amer) 107.3 Est GFR (Non-Af Amer) 92.6 BUN/Creatinine Ratio 15.2 (10-20) Glucose 102 H (70-99) mg/dl Lactate (0.4-2.0) mmol/L Calcium 8.1 L (8.5-10.1) mg/dl Magnesium (1.8-2.4) mg/dl Total Bilirubin 0.7 (0.2-1) mg/dl AST 46 H (15-37) U/L ALT 155 H (12-78) U/L Alkaline Phosphatase 206 H (45-117) U/L Troponin I (0-0.045) ng/ml Total Protein 6.6 (6.4-8.2) gm/dl Albumin 2.6 L (3.4-5.0) gm/dl Globulin 4.0 (2.5-4.0) gm/dl Albumin/Globulin Ratio 0.6 L (0.9-2) Lipase (73-393) U/L Urine Color Urine Appearance (Clear) Urine pH (4.5-7.5) Ur Specific [place] (1.000-1.030) Urine Protein (Negative) Urine Glucose (UA) (Negative) Urine Ketones (Negative) Urine Blood (Negative) Urine Nitrite (Negative) Urine Bilirubin (Negative) Urine Urobilinogen (Negative) Ur Leukocyte Esterase (Negative) Urine WBC (Auto) (0-5) /hpf Urine RBC (Auto) (0-4) /hpf U Hyaline Cast (Auto) (0-5) /lpf U Epithel Cells (Auto) (0-5) /lpf Urine Bacteria (Auto) (Negative) Hepatitis C Ab Screen Neg (Neg) Influenza Type A (PCR) (Neg) Influenza Type B (PCR) (Neg) 08/02/19 08/01/19 08/01/19 Range/Units 05:26 17:40 16:30 WBC 8.87 (4.8-10.8) K/uL RBC 3.66 L (4.7-6.1) M/uL Hgb 11.0 L (14.0-18.0) g/dL Hct 32.7 L (42-52) % MCV 89.3 (80-100) fL MCH 30.1 (25-34) pg MCHC 33.6 (32-36) g/dL RDW Std Deviation 49.8 H (36.4-46.3) fL RDW Coeff of Carlos 15.2 H (11.5-14.5) % Plt Count 202 (130-400) K/uL MPV 10.2 (7.4-10.4) fL Immature Gran % (Auto) 0.2 % Neut % (Auto) 68.8 % Lymph % (Auto) 16.2 % [place] % (Auto) 12.7 % Eos % (Auto) 1.8 % Baso % (Auto) 0.3 % Immature Gran # (Auto) 0.02 (0.00-0.02) K/uL Neut # (Auto) 6.09 (1.4-6.5) K/uL Lymph # (Auto) 1.44 (1.2-3.4) K/uL [place] # (Auto) 1.13 H (0.11-0.59) K/uL Eos # (Auto) 0.16 (0-0.5) K/uL Baso # (Auto) 0.03 (0-0.2) K/uL PT (9.0-12.0) Seconds INR (0.9-1.1) APTT (21.0-31.0) Seconds PTT Ratio Sodium (136-145) mmol/L Potassium (3.5-5.1) mmol/L Chloride (98-107) mmol/L Carbon Dioxide (21-32) mmol/L Anion Gap (3-11) BUN (7-18) mg/dl Creatinine (0.6-1.4) mg/dl Est Cr Clr Drug Dosing ml/min Est GFR ( Amer) Est GFR (Non-Af Amer) BUN/Creatinine Ratio (10-20) Glucose (70-99) mg/dl Lactate 0.8 (0.4-2.0) mmol/L Calcium (8.5-10.1) mg/dl Magnesium (1.8-2.4) mg/dl Total Bilirubin (0.2-1) mg/dl AST (15-37) U/L ALT (12-78) U/L Alkaline Phosphatase (45-117) U/L Troponin I (0-0.045) ng/ml Total Protein (6.4-8.2) gm/dl Albumin (3.4-5.0) gm/dl Globulin (2.5-4.0) gm/dl Albumin/Globulin Ratio (0.9-2) Lipase (73-393) U/L Urine Color Dark Yellow Urine Appearance Clear (Clear) Urine pH 6.0 (4.5-7.5) Ur Specific [place] 1.029 (1.000-1.030) Urine Protein Trace H (Negative) Urine Glucose (UA) Negative (Negative) Urine Ketones Trace H (Negative) Urine Blood Negative (Negative) Urine Nitrite Negative (Negative) Urine Bilirubin Negative (Negative) Urine Urobilinogen Negative (Negative) Ur Leukocyte Esterase Negative (Negative) Urine WBC (Auto) 1-5 (0-5) /hpf Urine RBC (Auto) 0-4 (0-4) /hpf U Hyaline Cast (Auto) 1-5 (0-5) /lpf U Epithel Cells (Auto) 20-30 H (0-5) /lpf Urine Bacteria (Auto) Negative (Negative) Hepatitis C Ab Screen (Neg) Influenza Type A (PCR) (Neg) Influenza Type B (PCR) (Neg) 08/01/19 08/01/19 08/01/19 Range/Units 16:26 16:20 16:20 WBC (4.8-10.8) K/uL RBC (4.7-6.1) M/uL Hgb (14.0-18.0) g/dL Hct (42-52) % MCV (80-100) fL MCH (25-34) pg MCHC (32-36) g/dL RDW Std Deviation (36.4-46.3) fL RDW Coeff of Carlos (11.5-14.5) % Plt Count (130-400) K/uL MPV (7.4-10.4) fL Immature Gran % (Auto) % Neut % (Auto) % Lymph % (Auto) % [place] % (Auto) % Eos % (Auto) % Baso % (Auto) % Immature Gran # (Auto) (0.00-0.02) K/uL Neut # (Auto) (1.4-6.5) K/uL Lymph # (Auto) (1.2-3.4) K/uL [place] # (Auto) (0.11-0.59) K/uL Eos # (Auto) (0-0.5) K/uL Baso # (Auto) (0-0.2) K/uL PT (9.0-12.0) Seconds INR (0.9-1.1) APTT (21.0-31.0) Seconds PTT Ratio Sodium 134 L (136-145) mmol/L Potassium 3.2 L (3.5-5.1) mmol/L Chloride 103 (98-107) mmol/L Carbon Dioxide 27 (21-32) mmol/L Anion Gap 4.0 (3-11) BUN 21 H (7-18) mg/dl Creatinine 1.04 (0.6-1.4) mg/dl Est Cr Clr Drug Dosing 63.8 ml/min Est GFR ( Amer) 84.5 Est GFR (Non-Af Amer) 72.9 BUN/Creatinine Ratio 19.8 (10-20) Glucose 112 H (70-99) mg/dl Lactate (0.4-2.0) mmol/L Calcium 8.7 (8.5-10.1) mg/dl Magnesium 2.1 (1.8-2.4) mg/dl Total Bilirubin 0.7 (0.2-1) mg/dl AST 68 H (15-37) U/L ALT 220 H (12-78) U/L Alkaline Phosphatase 258 H (45-117) U/L Troponin I < 0.015 (0-0.045) ng/ml Total Protein 7.6 (6.4-8.2) gm/dl Albumin 3.2 L (3.4-5.0) gm/dl Globulin 4.4 H (2.5-4.0) gm/dl Albumin/Globulin Ratio 0.7 L (0.9-2) Lipase 51 L (73-393) U/L Urine Color Urine Appearance (Clear) Urine pH (4.5-7.5) Ur Specific [place] (1.000-1.030) Urine Protein (Negative) Urine Glucose (UA) (Negative) Urine Ketones (Negative) Urine Blood (Negative) Urine Nitrite (Negative) Urine Bilirubin (Negative) Urine Urobilinogen (Negative) Ur Leukocyte Esterase (Negative) Urine WBC (Auto) (0-5) /hpf Urine RBC (Auto) (0-4) /hpf U Hyaline Cast (Auto) (0-5) /lpf U Epithel Cells (Auto) (0-5) /lpf Urine Bacteria (Auto) (Negative) Hepatitis C Ab Screen (Neg) Influenza Type A (PCR) Neg for Influ A (Neg) Influenza Type B (PCR) Neg for Influ B (Neg) 08/01/19 08/01/19 Range/Units 16:20 16:20 WBC 10.31 (4.8-10.8) K/uL RBC 3.99 L (4.7-6.1) M/uL Hgb 12.0 L (14.0-18.0) g/dL Hct 35.8 L (42-52) % MCV 89.7 (80-100) fL MCH 30.1 (25-34) pg MCHC 33.5 (32-36) g/dL RDW Std Deviation 50.1 H (36.4-46.3) fL RDW Coeff of Carlos 15.4 H (11.5-14.5) % Plt Count 235 (130-400) K/uL MPV 10.5 H (7.4-10.4) fL Immature Gran % (Auto) 0.3 % Neut % (Auto) 71.6 % Lymph % (Auto) 13.3 % [place] % (Auto) 12.9 % Eos % (Auto) 1.6 % Baso % (Auto) 0.3 % Immature Gran # (Auto) 0.03 H (0.00-0.02) K/uL Neut # (Auto) 7.39 H (1.4-6.5) K/uL Lymph # (Auto) 1.37 (1.2-3.4) K/uL [place] # (Auto) 1.33 H (0.11-0.59) K/uL Eos # (Auto) 0.16 (0-0.5) K/uL Baso # (Auto) 0.03 (0-0.2) K/uL PT 11.1 (9.0-12.0) Seconds INR 1.1 (0.9-1.1) APTT 39.1 H (21.0-31.0) Seconds PTT Ratio 1.4 Sodium (136-145) mmol/L Potassium (3.5-5.1) mmol/L Chloride (98-107) mmol/L Carbon Dioxide (21-32) mmol/L Anion Gap (3-11) BUN (7-18) mg/dl Creatinine (0.6-1.4) mg/dl Est Cr Clr Drug Dosing ml/min Est GFR ( Amer) Est GFR (Non-Af Amer) BUN/Creatinine Ratio (10-20) Glucose (70-99) mg/dl Lactate (0.4-2.0) mmol/L Calcium (8.5-10.1) mg/dl Magnesium (1.8-2.4) mg/dl Total Bilirubin (0.2-1) mg/dl AST (15-37) U/L ALT (12-78) U/L Alkaline Phosphatase (45-117) U/L Troponin I (0-0.045) ng/ml Total Protein (6.4-8.2) gm/dl Albumin (3.4-5.0) gm/dl Globulin (2.5-4.0) gm/dl Albumin/Globulin Ratio (0.9-2) Lipase (73-393) U/L Urine Color Urine Appearance (Clear) Urine pH (4.5-7.5) Ur Specific [place] (1.000-1.030) Urine Protein (Negative) Urine Glucose (UA) (Negative) Urine Ketones (Negative) Urine Blood (Negative) Urine Nitrite (Negative) Urine Bilirubin (Negative) Urine Urobilinogen (Negative) Ur Leukocyte Esterase (Negative) Urine WBC (Auto) (0-5) /hpf Urine RBC (Auto) (0-4) /hpf U Hyaline Cast (Auto) (0-5) /lpf U Epithel Cells (Auto) (0-5) /lpf Urine Bacteria (Auto) (Negative) Hepatitis C Ab Screen (Neg) Influenza Type A (PCR) (Neg) Influenza Type B (PCR) (Neg)
--- NOTE | 2019-08-02 13:32 | Hospitalist Progress Note ---
Date of Service August 02, 2019 Assessment & Plan (1) Diverticulitis: less pain today but meal grinder tender no fever, normal WBC small area of perforation measured 11mm, should resolve with IV antibiotics continue Zosyn IV continue NPO for time being, diet per surgery do not anticipate any surgical needs but will keep on heparin drip for now (2) Afib: continue amiodarone continue heparin drip in case he would require surgery HR is controlled (3) Ischemic cardiomyopathy: examines euvolemic continue gentle fluids (4) Hypertension: BP stable (5) CVA (cerebral vascular accident): h/o such, no residual symptoms (6) AAA (abdominal aortic aneurysm): stable on CT on admission follows every 6 months Admission and Anticipated Discharge Date Admission Date: August 01, 2019 Subjective patient doing well, sitting up in chair today still with moderate abdominal pain but improved, he has no nausea, no fevers, had a BM yesterday that was loose, no blood in stool vitals stable WBC normal, K low at 2.9, Cr stable discussed results of CT with the patient explained to him the plan for IV antibiotics, slowly advance diet and d/c home on oral antibiotics when appropriate all questions answered Review of Systems Review of Systems: All systems reviewed & are unremarkable except as noted in HPI & below Constitutional: no fever, no chills, no sweats, no fatigue and no weakness Respiratory: no cough and no dyspnea Cardiovascular: no chest pain Gastrointestinal: + abdominal pain and + diarrhea/loose stools; no nausea, no vomiting, no constipation, no blood in stools and no melena Physical Exam Constitutional: WD/WN, vitals as above Eyes: PERRL, conjunctivae normal, anicteric sclerae ENMT: external ear and nose normal, oropharynx normal Neck: trachea midline, no thyromegaly Respiratory: normal respiratory effort, lungs clear to auscultation Cardiovascular: RRR, no murmur, no edema Gastrointestinal (Abdomen): Inspection/Auscultation: abdomen normal to inspection and normal bowel sounds; abdomen not distended Percussion/Palpation: + abdomen tender (umbilical, epigastric) and abdomen soft; no guarding and abdomen not rigid Musculoskeletal: no cyanosis or clubbing, extremities motor strength 5/5 Skin: no rashes, warm and dry Neurologic: patellar DTR's 2+ bilat, sensation intact and PERRL, EOMI, accommodation nl, no face palsy, no dysarthria Psychiatric: A+Ox3, euthymic affect Lymphatic: no cervical or axillary lymphadenopathy Results & Data Results & Data ([facility]) Vital Signs (Past 12 Hours) Vital Signs Temp Pulse Resp BP Pulse Ox 08/02/19 08:39 36.7 C 61 20 109/64 95 Laboratory Results Laboratory Results - last 24 hr 08/01/19 08/01/19 08/01/19 16:20 16:20 16:20 WBC 10.31 RBC 3.99 L Hgb 12.0 L Hct 35.8 L MCV 89.7 MCH 30.1 MCHC 33.5 RDW Std Deviation 50.1 H RDW Coeff of Carlos 15.4 H Plt Count 235 MPV 10.5 H Immature Gran % (Auto) 0.3 Neut % (Auto) 71.6 Lymph % (Auto) 13.3 [place] % (Auto) 12.9 Eos % (Auto) 1.6 Baso % (Auto) 0.3 Immature Gran # (Auto) 0.03 H Neut # (Auto) 7.39 H Lymph # (Auto) 1.37 [place] # (Auto) 1.33 H Eos # (Auto) 0.16 Baso # (Auto) 0.03 PT 11.1 INR 1.1 APTT 39.1 H PTT Ratio 1.4 Sodium 134 L Potassium 3.2 L Chloride 103 Carbon Dioxide 27 Anion Gap 4.0 BUN 21 H Creatinine 1.04 Est Cr Clr Drug Dosing 63.8 Est GFR ( Amer) 84.5 Est GFR (Non-Af Amer) 72.9 BUN/Creatinine Ratio 19.8 Glucose 112 H Lactate Calcium 8.7 Magnesium 2.1 Total Bilirubin 0.7 AST 68 H ALT 220 H Alkaline Phosphatase 258 H Troponin I < 0.015 Total Protein 7.6 Albumin 3.2 L Globulin 4.4 H Albumin/Globulin Ratio 0.7 L Lipase Urine Color Urine Appearance Urine pH Ur Specific [place] Urine Protein Urine Glucose (UA) Urine Ketones Urine Blood Urine Nitrite Urine Bilirubin Urine Urobilinogen Ur Leukocyte Esterase Urine WBC (Auto) Urine RBC (Auto) U Hyaline Cast (Auto) U Epithel Cells (Auto) Urine Bacteria (Auto) Hepatitis C Ab Screen Influenza Type A (PCR) Influenza Type B (PCR) 08/01/19 08/01/19 08/01/19 16:20 16:26 16:30 WBC RBC Hgb Hct MCV MCH MCHC RDW Std Deviation RDW Coeff of Carlos Plt Count MPV Immature Gran % (Auto) Neut % (Auto) Lymph % (Auto) [place] % (Auto) Eos % (Auto) Baso % (Auto) Immature Gran # (Auto) Neut # (Auto) Lymph # (Auto) [place] # (Auto) Eos # (Auto) Baso # (Auto) PT INR APTT PTT Ratio Sodium Potassium Chloride Carbon Dioxide Anion Gap BUN Creatinine Est Cr Clr Drug Dosing Est GFR ( Amer) Est GFR (Non-Af Amer) BUN/Creatinine Ratio Glucose Lactate 0.8 Calcium Magnesium Total Bilirubin AST ALT Alkaline Phosphatase Troponin I Total Protein Albumin Globulin Albumin/Globulin Ratio Lipase 51 L Urine Color Urine Appearance Urine pH Ur Specific [place] Urine Protein Urine Glucose (UA) Urine Ketones Urine Blood Urine Nitrite Urine Bilirubin Urine Urobilinogen Ur Leukocyte Esterase Urine WBC (Auto) Urine RBC (Auto) U Hyaline Cast (Auto) U Epithel Cells (Auto) Urine Bacteria (Auto) Hepatitis C Ab Screen Influenza Type A (PCR) Neg for Influ A Influenza Type B (PCR) Neg for Influ B 08/01/19 08/02/19 08/02/19 17:40 05:26 05:26 WBC 8.87 RBC 3.66 L Hgb 11.0 L Hct 32.7 L MCV 89.3 MCH 30.1 MCHC 33.6 RDW Std Deviation 49.8 H RDW Coeff of Carlos 15.2 H Plt Count 202 MPV 10.2 Immature Gran % (Auto) 0.2 Neut % (Auto) 68.8 Lymph % (Auto) 16.2 [place] % (Auto) 12.7 Eos % (Auto) 1.8 Baso % (Auto) 0.3 Immature Gran # (Auto) 0.02 Neut # (Auto) 6.09 Lymph # (Auto) 1.44 [place] # (Auto) 1.13 H Eos # (Auto) 0.16 Baso # (Auto) 0.03 PT INR APTT PTT Ratio Sodium 137 Potassium 2.9 L Chloride 105 Carbon Dioxide 26 Anion Gap 6.0 BUN 12 Creatinine 0.77 Est Cr Clr Drug Dosing 84.5 Est GFR ( Amer) 107.3 Est GFR (Non-Af Amer) 92.6 BUN/Creatinine Ratio 15.2 Glucose 102 H Lactate Calcium 8.1 L Magnesium Total Bilirubin 0.7 AST 46 H ALT 155 H Alkaline Phosphatase 206 H Troponin I Total Protein 6.6 Albumin 2.6 L Globulin 4.0 Albumin/Globulin Ratio 0.6 L Lipase Urine Color Dark Yellow Urine Appearance Clear Urine pH 6.0 Ur Specific [place] 1.029 Urine Protein Trace H Urine Glucose (UA) Negative Urine Ketones Trace H Urine Blood Negative Urine Nitrite Negative Urine Bilirubin Negative Urine Urobilinogen Negative Ur Leukocyte Esterase Negative Urine WBC (Auto) 1-5 Urine RBC (Auto) 0-4 U Hyaline Cast (Auto) 1-5 U Epithel Cells (Auto) 20-30 H Urine Bacteria (Auto) Negative Hepatitis C Ab Screen Influenza Type A (PCR) Influenza Type B (PCR) 08/02/19 08/02/19 05:26 05:26 WBC RBC Hgb Hct MCV MCH MCHC RDW Std Deviation RDW Coeff of Carlos Plt Count MPV Immature Gran % (Auto) Neut % (Auto) Lymph % (Auto) [place] % (Auto) Eos % (Auto) Baso % (Auto) Immature Gran # (Auto) Neut # (Auto) Lymph # (Auto) [place] # (Auto) Eos # (Auto) Baso # (Auto) PT INR APTT 55.7 H* PTT Ratio 2.0 Sodium Potassium Chloride Carbon Dioxide Anion Gap BUN Creatinine Est Cr Clr Drug Dosing Est GFR ( Amer) Est GFR (Non-Af Amer) BUN/Creatinine Ratio Glucose Lactate Calcium Magnesium Total Bilirubin AST ALT Alkaline Phosphatase Troponin I Total Protein Albumin Globulin Albumin/Globulin Ratio Lipase Urine Color Urine Appearance Urine pH Ur Specific [place] Urine Protein Urine Glucose (UA) Urine Ketones Urine Blood Urine Nitrite Urine Bilirubin Urine Urobilinogen Ur Leukocyte Esterase Urine WBC (Auto) Urine RBC (Auto) U Hyaline Cast (Auto) U Epithel Cells (Auto) Urine Bacteria (Auto) Hepatitis C Ab Screen Neg Influenza Type A (PCR) Influenza Type B (PCR) Medications Administered Current Inpatient Medications Acetaminophen (Tylenol) 650 mg PO Q4H PRN PRN Reason: pain/fever Stop: 08/31/19 22:09 Amiodarone HCl (Cordarone) 200 mg PO QAM [facility] Stop: 09/01/19 08:59 Last Admin: 08/02/19 08:09 Dose: 200 mg Documented by: Cilostazol (Pletal) 100 mg PO BID [facility] Stop: 08/31/19 22:29 Last Admin: 08/02/19 08:09 Dose: 100 mg Documented by: Heparin Sodium/Dextrose (Heparin Sodium/Dextrose) 25,000 units in 500 mls @ 24 mls/hr IV .[id number] [facility]; Protocol Stop: 08/31/19 22:09 Last Titration: 08/02/19 06:54 Dose: 1,200 units/hr, 24 mls/hr Documented by: Piperacillin Sod/Tazobactam (Sod 3.375 gm/ Dextrose) 115 mls @ 28.75 mls/hr IV Q8H [facility]; Protocol Stop: 08/12/19 00:00 Last Infusion: 08/02/19 12:43 Dose: Infused Documented by: Potassium Chloride 40 meq/ (Sodium Chloride) 1,020 mls @ 80 mls/hr IV .[id number] [facility] Stop: 09/01/19 09:59 Last Infusion: 08/02/19 10:04 Dose: 0 mls/hr Documented by: Miscellaneous Information (Consult) 1 ea N/A UD PRN PRN Reason: Consult Stop: 08/31/19 18:22 Nitroglycerin (Nitrostat) 0.4 mg SL UD PRN PRN Reason: Chest Pain Stop: 08/31/19 22:09 Polyethylene Glycol (Miralax Powder Packet) 17 gm PO DAILY PRN PRN Reason: Constipation Stop: 08/31/19 22:09 PG Care Time/CCT Total # of Minutes Spent Total Time Spent with Patient: Total time spent is greater than 50% in coordination of care (as documented) at patient's floor/unit and/or counseling patient: Coding Level of Care Code 11200 Subseq Hosp Care Lvl 2 Diagnoses Diverticulitis K57.92 Afib I48.0 Atrial fibrillation type: paroxysmal Ischemic cardiomyopathy I25.5 Hypertension I10 Hypertension type: essential hypertension CVA (cerebral vascular accident) I63.9 CVA mechanism: unspecified AAA (abdominal aortic aneurysm) I71.4 Presence of rupture: without rupture (1) Afib Atrial fibrillation type: paroxysmal Qualified Code(s): I48.0 - Paroxysmal atrial fibrillation (2) Hypertension Hypertension type: essential hypertension Qualified Code(s): I10 - Essential (primary) hypertension (3) CVA (cerebral vascular accident) CVA mechanism: unspecified Qualified Code(s): I63.9 - Cerebral infarction, un specified (4) AAA (abdominal aortic aneurysm) Presence of rupture: without rupture Qualified Code(s): I71.4 - Abdominal aortic aneurysm, without rupture
[2019-08-02] MEDS ORDERED: Nursing to Pharmacy Communication ONE (18:59)
[2019-08-03] MEDS: PIPERACILLIN/TAZOBACTAM 3.375 GM in DEXTROSE 5% 100 ML IV SCH ×3 (01:11→16:27)
[2019-08-03 04:45] LABS: Basophils # (auto) 0.04 K/uL (0-0.2); Basophils % (auto) 0.6 %; Eosinophils # (auto) 0.24 K/uL (0-0.5); Eosinophils % (auto) 3.5 %; Hematocrit (blood only) 33.9 % (42-52); Hemoglobin 11.2 g/dL (14.0-18.0); Lymphocytes # (auto) 1.62 K/uL (1.2-3.4); Lymphocytes % (auto) 23.6 %; Mean Corpuscular Hemoglobin 29.6 pg (25-34); Mean Corpuscular Volume 89.7 fL (80-100); Mean Platelet Volume 10.6 fL (7.4-10.4); Monocytes # (auto) 0.84 K/uL (0.11-0.59); Monocytes % (auto) 12.2 %; Neutrophils # (auto) 4.13 K/uL (1.4-6.5); Neutrophils % (auto) 60.1 %; Platelet Count 218 K/uL (130-400); RDW Coefficient of Variation 15.2 % (11.5-14.5); RDW Standard Deviation 49.7 fL (36.4-46.3); Red Blood Count 3.78 M/uL (4.7-6.1); White Blood Count 6.87 K/uL (4.8-10.8)
[2019-08-03 04:55] LABS: Partial Thromboplastin Ratio 1.2; Partial Thromboplastin Time 33.9 Seconds (21.0-31.0)
--- NOTE | 2019-08-03 05:12 | Communication Note ---
Date of Service: August 03, 2019 Received qliq from RN [id number] regarding pt having CP. Described as squeezing sensation, 8/10 severity. Non radiating. BP 174/90 pulse 60. Pt given nitro prior to my arrival. CBC, BMP, Mg, Phos, Trop, EKG STAT ordered. EKG read as NSR with lateral ischemia. When compared to prior EKG's, lateral ischemia considered progressive in nature. By time of my evaluation, pt resting comfortably in chair, notes CP markedly improved. -Pt with h/o multivessel coronary artery disease (note cath from Feb 2019), peripheral arterial disease, hypertension, hyperlipidemia, and ischemic cardiomyopathy with an LVEF of 35%. Additionally, hx of MO with intention to refer to [facility] cardiac surgery for bypass surgery evaluation in May of this year however this was postponed first due to CVA, then again due to cholecystitis. -Pt heparin gtt stopped yesterday 2/2 positive FOBT. On beta-yady and Entresto, held currently. Patient is intolerant to statin therapy. Not on ASA regimen. -Pt follows with primary oil changer Dr. Nemwan. 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 Anticipate this [place] need [place] [facility] [place] -Labs/trop still pending Resident Activity Tracking Resident Involvement: Resident Care Provided Care Provided: Adult Hospital Medicine
[2019-08-03 05:17] LABS: BUN Creatinine Ratio 7.9 (10-20); Calcium 8.8 mg/dl (8.5-10.1); Creatinine Clr Calc Pharmacy 74.8 ml/min; Est GFR (African American) 102.1; Est GFR (Non-African American) 88.1; Magnesium 1.8 mg/dl (1.8-2.4); Phosphorus 2.6 mg/dl (2.5-4.9)
[2019-08-03 06:46] LABS: Potassium 3.6 mmol/L (3.5-5.1); Troponin I 0.058 ng/ml (0-0.045)
[2019-08-03] MEDS: AMIODARONE 200 MG TAB PO SCH (09:28)
[2019-08-03] MEDS: cilostazoL 100 MG TAB PO SCH ×2 (09:28→20:32)
[2019-08-03] MEDS: POTASSIUM CHLORIDE 40 MEQ in SODIUM CHLORIDE 0.9% 1000ML 1,000 ML IV SCH ×2 (11:06→23:08)
--- NOTE | 2019-08-03 11:34 | Surgery Progress Note ---
Date of Service August 03, 2019 Assessment & Plan (1) Diverticulitis: Diverticulitis of sigmoid colon with microperforation, no abscess - afebrile, no leukocytosis - epigastric upper abdominal pain, minimal LLQ abdominal pain - tolerated clear liquids with no pain, nausea or vomiting Plan: await cardiology consult. Okay from surgical standpoint to resume all home medications including eliquis. Advance to full liquids, advised to take slowly continue pain management as needed Continue IV ABx, Zosyn Will need follow-up with [facility] for perc cholecystostomy tube continue ambulation continue medical management, will follow Dr. Hoyos has seen pt, agrees with above Subjective feeling better this morning, had chest pain last night required nitroglycerin which helped. not much abdominal pain, might be more lower chest pain no nausea or vomiting tolerated clear liquids yesterday moderate flatus and multiple loose stools yesterday, hemoccult stools yesterday heparin stopped. Did not notice blood in stools this am Physical Exam Constitutional: WD/WN, vitals as above no acute distress Respiratory: normal respiratory effort; no respiratory distress Gastrointestinal (Abdomen): Inspection/Auscultation: abdomen normal to inspection and + abdominal surgical drain present (percutaneous cholecystostomy tube present bile in bag); abdomen not distended Percussion/Palpation: + abdomen tender (mild in epigastrium and LLQ on deep palpation) and abdomen soft; no guarding and abdomen not rigid Skin: no rashes, warm and dry Psychiatric: A+Ox3, euthymic affect Results & Data Vital Signs (Past 12 Hours) Vital Signs Temp Pulse Pulse Pulse Resp BP Pulse Ox 08/03/19 07:42 36.6 C 67 16 136/67 96 08/03/19 04:20 75 14 106/70 95 08/03/19 04:07 69 18 174/90 H 97 Laboratory Results 08/03/19 08/03/19 08/03/19 Range/Units 10:20 04:37 04:37 WBC 6.87 (4.8-10.8) K/uL RBC 3.78 L (4.7-6.1) M/uL Hgb 11.2 L (14.0-18.0) g/dL Hct 33.9 L (42-52) % MCV 89.7 (80-100) fL MCH 29.6 (25-34) pg MCHC 33.0 (32-36) g/dL RDW Std Deviation 49.7 H (36.4-46.3) fL RDW Coeff of Carlos 15.2 H (11.5-14.5) % Plt Count 218 (130-400) K/uL MPV 10.6 H (7.4-10.4) fL Immature Gran % (Auto) 0.0 % Neut % (Auto) 60.1 % Lymph % (Auto) 23.6 % [place] % (Auto) 12.2 % Eos % (Auto) 3.5 % Baso % (Auto) 0.6 % Immature Gran # (Auto) 0.00 (0.00-0.02) K/uL Neut # (Auto) 4.13 (1.4-6.5) K/uL Lymph # (Auto) 1.62 (1.2-3.4) K/uL [place] # (Auto) 0.84 H (0.11-0.59) K/uL Eos # (Auto) 0.24 (0-0.5) K/uL Baso # (Auto) 0.04 (0-0.2) K/uL APTT (21.0-31.0) Seconds PTT Ratio Sodium 138 (136-145) mmol/L Potassium 3.6 D (3.5-5.1) mmol/L Chloride 110 H (98-107) mmol/L Carbon Dioxide 25 (21-32) mmol/L Anion Gap 3.0 (3-11) BUN 7 D (7-18) mg/dl Creatinine 0.87 (0.6-1.4) mg/dl Est Cr Clr Drug Dosing 74.8 ml/min Est GFR ( Amer) 102.1 Est GFR (Non-Af Amer) 88.1 BUN/Creatinine Ratio 7.9 L (10-20) Glucose 112 H (70-99) mg/dl Calcium 8.8 (8.5-10.1) mg/dl Phosphorus 2.6 (2.5-4.9) mg/dl Magnesium 1.8 (1.8-2.4) mg/dl Troponin I 0.045 0.058 H* (0-0.045) ng/ml Stool Occult Bld Scrn (Negative) Stl C. diff Tox B Gene (Neg) 08/03/19 08/02/19 08/02/19 Range/Units 04:37 Unknown Unknown WBC (4.8-10.8) K/uL RBC (4.7-6.1) M/uL Hgb (14.0-18.0) g/dL Hct (42-52) % MCV (80-100) fL MCH (25-34) pg MCHC (32-36) g/dL RDW Std Deviation (36.4-46.3) fL RDW Coeff of Carlos (11.5-14.5) % Plt Count (130-400) K/uL MPV (7.4-10.4) fL Immature Gran % (Auto) % Neut % (Auto) % Lymph % (Auto) % [place] % (Auto) % Eos % (Auto) % Baso % (Auto) % Immature Gran # (Auto) (0.00-0.02) K/uL Neut # (Auto) (1.4-6.5) K/uL Lymph # (Auto) (1.2-3.4) K/uL [place] # (Auto) (0.11-0.59) K/uL Eos # (Auto) (0-0.5) K/uL Baso # (Auto) (0-0.2) K/uL APTT 33.9 H (21.0-31.0) Seconds PTT Ratio 1.2 Sodium (136-145) mmol/L Potassium (3.5-5.1) mmol/L Chloride (98-107) mmol/L Carbon Dioxide (21-32) mmol/L Anion Gap (3-11) BUN (7-18) mg/dl Creatinine (0.6-1.4) mg/dl Est Cr Clr Drug Dosing ml/min Est GFR ( Amer) Est GFR (Non-Af Amer) BUN/Creatinine Ratio (10-20) Glucose (70-99) mg/dl Calcium (8.5-10.1) mg/dl Phosphorus (2.5-4.9) mg/dl Magnesium (1.8-2.4) mg/dl Troponin I (0-0.045) ng/ml Stool Occult Bld Scrn Positive A (Negative) Stl C. diff Tox B Gene Negative Cdiff Gene (Neg)
--- NOTE | 2019-08-03 12:55 | XCELERA ---
[id number] \\[email or web address]_[email or web address]\[id number]
--- NOTE | 2019-08-03 14:06 | Electrocardiogram Report ---
Test Reason : Blood Pressure : / mmHG Vent. Rate : 065 BPM Atrial Rate : 065 BPM P-R Int : 196 ms QRS Dur : 112 ms QT Int : 528 ms P-R-T Axes : 052 -26 184 degrees QTc Int : 549 ms Normal sinus rhythm Prolonged QT Abnormal ECG When compared with ECG of 01-AUG-2019 16:25, QT has lengthened Confirmed by Adolfo Tapia ([id number]) on 08/03/2019 2:05:41 PM Referred By: Keven Newman Confirmed By:Adolfo Tapia
--- NOTE | 2019-08-03 19:59 | Hospitalist Progress Note ---
Date of Service August 03, 2019 Assessment & Plan (1) Diverticulitis: pain is improving no fever, normal WBC, vitals stable small area of perforation measured 11mm on CT, should resolve with IV antibiotics continue Zosyn IV today and likely tomorrow diet advanced by surgery (2) Afib: continue amiodarone continue to hold heparin drip today, plan to resume tomorrow if there is no additional bleeding (3) Ischemic cardiomyopathy: examines euvolemic stop fluids (4) Hypertension: BP stable (5) CVA (cerebral vascular accident): h/o such, no residual symptoms (6) AAA (abdominal aortic aneurysm): stable on CT on admission follows every 6 months (7) Chest pain: very brief, minimal elevation in troponin will monitor for any further episodes no signs that this is ACS (8) GI bleed: some blood in stools last night, none today C diff negative, fecal occult positive Hb stable, actually up to 11.2 repeat tomorrow hold heparin for time being Admission and Anticipated Discharge Date Admission Date: August 01, 2019 Subjective patient had some abdominal pain, epigastric pain and mild chest pain last night troponin was minimally elevated, pain lasted about 5 minutes no further issues today he had some dark, bloody BM last night, today his BM is loose, feathery, no blood less abdominal pain, no nausea diet advanced by surgery reviewed labs, WBC normal at 6.8, Hb 11.2, plts 218k BMP stable Review of Systems Review of Systems: All systems reviewed & are unremarkable except as noted in HPI & below Constitutional: no fever, no chills, no sweats, no fatigue and no weakness Respiratory: no cough and no dyspnea Cardiovascular: + chest pain (minimal, transient); no palpitations and no edema Gastrointestinal: + abdominal pain, + diarrhea/loose stools and + blood in stools; no nausea, no vomiting and no constipation Physical Exam Constitutional: WD/WN, vitals as above Eyes: PERRL, conjunctivae normal, anicteric sclerae ENMT: external ear and nose normal, oropharynx normal Neck: trachea midline, no thyromegaly Respiratory: normal respiratory effort, lungs clear to auscultation Cardiovascular: RRR, no murmur, no edema Gastrointestinal (Abdomen): Inspection/Auscultation: abdomen normal to inspection, normal bowel sounds and + abdominal surgical drain present (green bile in bag); abdomen not distended Percussion/Palpation: + abdomen tender (epigastric, minimal pain) and abdomen soft; no guarding and abdomen not rigid Musculoskeletal: no cyanosis or clubbing, extremities motor strength 5/5 Skin: no rashes, warm and dry Neurologic: patellar DTR's 2+ bilat, sensation intact and PERRL, EOMI, accommodation nl, no face palsy, no dysarthria Psychiatric: A+Ox3, euthymic affect Lymphatic: no cervical or axillary lymphadenopathy Results & Data Results & Data ([facility]) Vital Signs (Past 12 Hours) Vital Signs Temp Pulse Resp BP Pulse Ox 08/03/19 15:04 36.5 C 66 18 137/78 98 Laboratory Results Laboratory Results - last 24 hr 08/03/19 08/03/19 08/03/19 04:37 04:37 04:37 WBC 6.87 RBC 3.78 L Hgb 11.2 L Hct 33.9 L MCV 89.7 MCH 29.6 MCHC 33.0 RDW Std Deviation 49.7 H RDW Coeff of Carlos 15.2 H Plt Count 218 MPV 10.6 H Immature Gran % (Auto) 0.0 Neut % (Auto) 60.1 Lymph % (Auto) 23.6 [place] % (Auto) 12.2 Eos % (Auto) 3.5 Baso % (Auto) 0.6 Immature Gran # (Auto) 0.00 Neut # (Auto) 4.13 Lymph # (Auto) 1.62 [place] # (Auto) 0.84 H Eos # (Auto) 0.24 Baso # (Auto) 0.04 APTT 33.9 H PTT Ratio 1.2 Sodium 138 Potassium 3.6 D Chloride 110 H Carbon Dioxide 25 Anion Gap 3.0 BUN 7 D Creatinine 0.87 Est Cr Clr Drug Dosing 74.8 Est GFR ( Amer) 102.1 Est GFR (Non-Af Amer) 88.1 BUN/Creatinine Ratio 7.9 L Glucose 112 H Calcium 8.8 Phosphorus 2.6 Magnesium 1.8 Troponin I 0.058 H* 08/03/19 08/03/19 10:20 16:32 WBC RBC Hgb Hct MCV MCH MCHC RDW Std Deviation RDW Coeff of Carlos Plt Count MPV Immature Gran % (Auto) Neut % (Auto) Lymph % (Auto) [place] % (Auto) Eos % (Auto) Baso % (Auto) Immature Gran # (Auto) Neut # (Auto) Lymph # (Auto) [place] # (Auto) Eos # (Auto) Baso # (Auto) APTT PTT Ratio Sodium Potassium Chloride Carbon Dioxide Anion Gap BUN Creatinine Est Cr Clr Drug Dosing Est GFR ( Amer) Est GFR (Non-Af Amer) BUN/Creatinine Ratio Glucose Calcium Phosphorus Magnesium Troponin I 0.045 0.045 Medications Administered Current Inpatient Medications Acetaminophen (Tylenol) 650 mg PO Q4H PRN PRN Reason: pain/fever Stop: 08/31/19 22:09 Amiodarone HCl (Cordarone) 200 mg PO QAM [facility] Stop: 09/01/19 08:59 Last Admin: 08/03/19 09:28 Dose: 200 mg Documented by: Cilostazol (Pletal) 100 mg PO BID [facility] Stop: 08/31/19 22:29 Last Admin: 08/03/19 09:28 Dose: 100 mg Documented by: Heparin Sodium/Dextrose (Heparin Sodium/Dextrose) 25,000 units in 500 mls @ 0 mls/hr IV .Q0M [facility]; Protocol Stop: 08/31/19 22:09 Last Titration: 08/02/19 19:00 Dose: 0 units/hr, 0 mls/hr Documented by: Piperacillin Sod/Tazobactam (Sod 3.375 gm/ Dextrose) 115 mls @ 28.75 mls/hr IV Q8H [facility]; Protocol Stop: 08/12/19 00:00 Last Admin: 08/03/19 16:27 Dose: 28.8 mls/hr Documented by: Potassium Chloride 40 meq/ (Sodium Chloride) 1,020 mls @ 80 mls/hr IV .[id number] [facility] Stop: 09/01/19 09:59 Last Admin: 08/03/19 11:06 Dose: 80 mls/hr Documented by: Miscellaneous Information (Consult) 1 ea N/A UD PRN PRN Reason: Consult Stop: 08/31/19 18:22 Nitroglycerin (Nitrostat) 0.4 mg SL UD PRN PRN Reason: Chest Pain Stop: 08/31/19 22:09 Last Admin: 08/03/19 04:14 Dose: 0.4 mg Documented by: Polyethylene Glycol (Miralax Powder Packet) 17 gm PO DAILY PRN PRN Reason: Constipation Stop: 08/31/19 22:09 PG Care Time/CCT Total # of Minutes Spent Total Time Spent with Patient: Total time spent is greater than 50% in coordination of care (as documented) at patient's floor/unit and/or counseling patient: Coding Level of Care Code 11435 Subseq Hosp Care Lvl 3 Diagnoses Diverticulitis K57.92 Afib I48.0 Atrial fibrillation type: paroxysmal Ischemic cardiomyopathy I25.5 Hypertension I10 Hypertension type: essential hypertension CVA (cerebral vascular accident) I63.9 CVA mechanism: unspecified AAA (abdominal aortic aneurysm) I71.4 Presence of rupture: without rupture Chest pain R07.9 GI bleed K92.2 (1) Afib Atrial fibrillation type: paroxysmal Qualified Code(s): I48.0 - Paroxysmal atrial fibrillation (2) Hypertension Hypertension type: essential hypertension Qualified Code(s): I10 - Essential (primary) hypertension (3) CVA (cerebral vascular accident) CVA mechanism: unspecified Qualified Code(s): I63.9 - Cerebral infarction, unspecified (4) AAA (abdominal aortic aneurysm) Presence of rupture: without rupture Qualified Code(s): I71.4 - Abdominal aortic aneurysm, without rupture
[2019-08-03] MEDS: ACETAMINOPHEN 325 MG TAB PO PRN (22:19)
[2019-08-04] MEDS: PIPERACILLIN/TAZOBACTAM 3.375 GM in DEXTROSE 5% 100 ML IV SCH ×4 (00:07→23:52)
[2019-08-04 06:04] LABS: Hematocrit (blood only) 32.9 % (42-52); Hemoglobin 10.6 g/dL (14.0-18.0); Mean Corpuscular Hemoglobin 29.4 pg (25-34); Mean Corpuscular Hgb Conc 32.2 g/dL (32-36); Mean Corpuscular Volume 91.1 fL (80-100); Mean Platelet Volume 10.8 fL (7.4-10.4); Platelet Count 245 K/uL (130-400); RDW Coefficient of Variation 15.2 % (11.5-14.5); RDW Standard Deviation 51.6 fL (36.4-46.3); Red Blood Count 3.61 M/uL (4.7-6.1); White Blood Count 6.31 K/uL (4.8-10.8)
[2019-08-04 06:40] LABS: BUN Creatinine Ratio 4.4 (10-20); Calcium 8.9 mg/dl (8.5-10.1); Est GFR (African American) 111.6; Est GFR (Non-African American) 96.3; Potassium 4.1 mmol/L (3.5-5.1)
[2019-08-04 06:52] LABS: Troponin I 0.046 ng/ml (0-0.045)
[2019-08-04] MEDS: cilostazoL 100 MG TAB PO SCH ×2 (08:58→21:19)
[2019-08-04] MEDS: AMIODARONE 200 MG TAB PO SCH (08:58)
--- NOTE | 2019-08-04 09:22 | Surgery Progress Note ---
Date of Service August 04, 2019 Assessment & Plan (1) Diverticulitis: Acute diverticulitis resolving with conservative measures We will continue with antibiotics Can advance to low fiber diet H&H is stable with no gross evidence of GI bleeding continuing Subjective Has almost no pain today Tolerated full liquid diet Still having loose stool There is no blood with the stool anymore Denies nausea and vomiting Physical Exam Gastrointestinal (Abdomen): Inspection/Auscultation: abdomen not distended Percussion/Palpation: abdomen soft; abdomen nontender Results & Data Vital Signs (Past 12 Hours) Vital Signs Temp Pulse Resp BP Pulse Ox 08/04/19 07:10 36.4 C L 62 18 146/76 H 97 08/03/19 23:28 36.5 C 60 16 150/81 H 97 Laboratory Results 08/04/19 08/04/19 08/03/19 Range/Units 05:19 05:19 16:32 WBC 6.31 (4.8-10.8) K/uL RBC 3.61 L (4.7-6.1) M/uL Hgb 10.6 L (14.0-18.0) g/dL Hct 32.9 L (42-52) % MCV 91.1 (80-100) fL MCH 29.4 (25-34) pg MCHC 32.2 (32-36) g/dL RDW Std Deviation 51.6 H (36.4-46.3) fL RDW Coeff of Carlos 15.2 H (11.5-14.5) % Plt Count 245 (130-400) K/uL MPV 10.8 H (7.4-10.4) fL Sodium 142 (136-145) mmol/L Potassium 4.1 (3.5-5.1) mmol/L Chloride 112 H (98-107) mmol/L Carbon Dioxide 27 (21-32) mmol/L Anion Gap 3.0 (3-11) BUN 3 L (7-18) mg/dl Creatinine 0.70 (0.6-1.4) mg/dl Est Cr Clr Drug Dosing 93.0 ml/min Est GFR ( Amer) 111.6 Est GFR (Non-Af Amer) 96.3 BUN/Creatinine Ratio 4.4 L (10-20) Glucose 90 (70-99) mg/dl Calcium 8.9 (8.5-10.1) mg/dl Troponin I 0.046 H* 0.045 (0-0.045) ng/ml 08/03/19 Range/Units 10:20 WBC (4.8-10.8) K/uL RBC (4.7-6.1) M/uL Hgb (14.0-18.0) g/dL Hct (42-52) % MCV (80-100) fL MCH (25-34) pg MCHC (32-36) g/dL RDW Std Deviation (36.4-46.3) fL RDW Coeff of Carlos (11.5-14.5) % Plt Count (130-400) K/uL MPV (7.4-10.4) fL Sodium (136-145) mmol/L Potassium (3.5-5.1) mmol/L Chloride (98-107) mmol/L Carbon Dioxide (21-32) mmol/L Anion Gap (3-11) BUN (7-18) mg/dl Creatinine (0.6-1.4) mg/dl Est Cr Clr Drug Dosing ml/min Est GFR ( Amer) Est GFR (Non-Af Amer) BUN/Creatinine Ratio (10-20) Glucose (70-99) mg/dl Calcium (8.5-10.1) mg/dl Troponin I 0.045 (0-0.045) ng/ml
[2019-08-04] MEDS: POTASSIUM CHLORIDE 40 MEQ in SODIUM CHLORIDE 0.9% 1000ML 1,000 ML IV SCH (12:15)
--- NOTE | 2019-08-04 14:08 | Hospitalist Progress Note ---
Date of Service August 04, 2019 Assessment & Plan (1) Diverticulitis: pain is nearly resolved no fever, normal WBC, vitals stable for days small area of perforation measured 11mm on CT, should resolve with IV antibiotics continue Zosyn IV today, change to Augmentin tomorrow diet advanced by surgery to low residue (2) Afib: continue amiodarone resume anticoagulation tomorrow after Hb check (3) Ischemic cardiomyopathy: examines euvolemic stop fluids (4) Hypertension: BP stable (5) CVA (cerebral vascular accident): h/o such, no residual symptoms (6) AAA (abdominal aortic aneurysm): stable on CT on admission follows every 6 months (7) Chest pain: very brief, minimal elevation in troponin will monitor for any further episodes, no other symptoms thus far no signs that this is ACS (8) GI bleed: some blood in stools two nights ago, none since C diff negative, fecal occult positive Hb down a little to 10.6, could be from dilution, fluids stopped repeat tomorrow continue to hold anticoagulation Admission and Anticipated Discharge Date Admission Date: August 01, 2019 Anticipated date of discharge: 08/05/19 Subjective patient feeling well, sitting in chair, has been walking in the halls no further chest pain no further GI bleeding discussed with general surgery, diet advanced to low residue, he said he tolerated chicken at lunch checked labs, WBC is 6k, Hb 10.6, down a little, Cr stable at 0.7 and electrolytes stable troponin 0.04 for several checks Review of Systems Review of Systems: All systems reviewed & are unremarkable except as noted in HPI & below Cardiovascular: no chest pain and no edema Gastrointestinal: no abdominal pain, no nausea, no vomiting, no constipation, no diarrhea/loose stools and no blood in stools Physical Exam Constitutional: WD/WN, vitals as above Eyes: PERRL, conjunctivae normal, anicteric sclerae ENMT: external ear and nose normal, oropharynx normal Neck: trachea midline, no thyromegaly Respiratory: normal respiratory effort, lungs clear to auscultation Cardiovascular: RRR, no murmur, no edema Gastrointestinal (Abdomen): Inspection/Auscultation: abdomen normal to inspection, normal bowel sounds and + abdominal surgical drain present (green bile in bag); abdomen not distended Percussion/Palpation: abdomen soft; abdomen nontender, no guarding and abdomen not rigid Musculoskeletal: no cyanosis or clubbing, extremities motor strength 5/5 Skin: no rashes, warm and dry Neurologic: patellar DTR's 2+ bilat, sensation intact and PERRL, EOMI, accommodation nl, no face palsy, no dysarthria Psychiatric: A+Ox3, euthymic affect Lymphatic: no cervical or axillary lymphadenopathy Results & Data Results & Data ([facility]) Vital Signs (Past 12 Hours) Vital Signs Temp Pulse Resp BP Pulse Ox 08/04/19 07:10 36.4 C L 62 18 146/76 H 97 Laboratory Results Laboratory Results - last 24 hr 08/03/19 08/04/19 08/04/19 16:32 05:19 05:19 WBC 6.31 RBC 3.61 L Hgb 10.6 L Hct 32.9 L MCV 91.1 MCH 29.4 MCHC 32.2 RDW Std Deviation 51.6 H RDW Coeff of Carlos 15.2 H Plt Count 245 MPV 10.8 H Sodium 142 Potassium 4.1 Chloride 112 H Carbon Dioxide 27 Anion Gap 3.0 BUN 3 L Creatinine 0.70 Est Cr Clr Drug Dosing 93.0 Est GFR ( Amer) 111.6 Est GFR (Non-Af Amer) 96.3 BUN/Creatinine Ratio 4.4 L Glucose 90 Calcium 8.9 Troponin I 0.045 0.046 H* Medications Administered Current Inpatient Medications Acetaminophen (Tylenol) 650 mg PO Q4H PRN PRN Reason: pain/fever Stop: 08/31/19 22:09 Last Admin: 08/03/19 22:19 Dose: 650 mg Documented by: Amiodarone HCl (Cordarone) 200 mg PO QAM [facility] Stop: 09/01/19 08:59 Last Admin: 08/04/19 08:58 Dose: 200 mg Documented by: Cilostazol (Pletal) 100 mg PO BID [facility] Stop: 08/31/19 22:29 Last Admin: 08/04/19 08:58 Dose: 100 mg Documented by: Heparin Sodium/Dextrose (Heparin Sodium/Dextrose) 25,000 units in 500 mls @ 0 mls/hr IV .Q0M [facility]; Protocol Stop: 08/31/19 22:09 Last Titration: 08/02/19 19:00 Dose: 0 units/hr, 0 mls/hr Documented by: Piperacillin Sod/Tazobactam (Sod 3.375 gm/ Dextrose) 115 mls @ 28.75 mls/hr IV Q8H [facility]; Protocol Stop: 08/12/19 00:00 Last Infusion: 08/04/19 12:48 Dose: Infused Documented by: Potassium Chloride 40 meq/ (Sodium Chloride) 1,020 mls @ 80 mls/hr IV .[id number] [facility] Stop: 09/01/19 09:59 Last Admin: 08/04/19 12:15 Dose: 80 mls/hr Documented by: Miscellaneous Information (Consult) 1 ea N/A UD PRN PRN Reason: Consult Stop: 08/31/19 18:22 Nitroglycerin (Nitrostat) 0.4 mg SL UD PRN PRN Reason: Chest Pain Stop: 08/31/19 22:09 Last Admin: 08/03/19 04:14 Dose: 0.4 mg Documented by: Polyethylene Glycol (Miralax Powder Packet) 17 gm PO DAILY PRN PRN Reason: Constipation Stop: 08/31/19 22:09 PG Care Time/CCT Total # of Minutes Spent Total Time Spent with Patient: Total time spent is greater than 50% in co ordination of care (as documented) at patient's floor/unit and/or counseling patient: Coding Level of Care Code 83370 Subseq Hosp Care Lvl 3 Diagnoses Diverticulitis K57.92 Afib I48.0 Atrial fibrillation type: paroxysmal Ischemic cardiomyopathy I25.5 Hypertension I10 Hypertension type: essential hypertension CVA (cerebral vascular accident) I63.9 CVA mechanism: unspecified AAA (abdominal aortic aneurysm) I71.4 Presence of rupture: without rupture Chest pain R07.9 GI bleed K92.2 (1) Afib Atrial fibrillation type: paroxysmal Qualified Code(s): I48.0 - Paroxysmal atrial fibrillation (2) Hypertension Hypertension type: essential hypertension Qualified Code(s): I10 - Essential (primary) hypertension (3) CVA (cerebral vascular accident) CVA mechanism: unspecified Qualified Code(s): I63.9 - Cerebral infarction, unspecified (4) AAA (abdominal aortic aneurysm) Presence of rupture: without rupture Qualified Code(s): I71.4 - Abdominal aortic aneurysm, without rupture
[2019-08-04] MEDS: ACETAMINOPHEN 325 MG TAB PO PRN (21:20)
--- NOTE | 2019-08-05 01:25 | Billing Data ---
Date of Service August 05, 2019 Coding Level of Care Code 68925 Initial Inpt Care Lvl 3
[2019-08-05 05:30] LABS: Hematocrit (blood only) 31.6 % (42-52); Hemoglobin 10.5 g/dL (14.0-18.0); Mean Corpuscular Hemoglobin 29.7 pg (25-34); Mean Corpuscular Hgb Conc 33.2 g/dL (32-36); Mean Corpuscular Volume 89.5 fL (80-100); Mean Platelet Volume 10.5 fL (7.4-10.4); Platelet Count 259 K/uL (130-400); RDW Coefficient of Variation 15.1 % (11.5-14.5); RDW Standard Deviation 49.5 fL (36.4-46.3); Red Blood Count 3.53 M/uL (4.7-6.1); White Blood Count 6.12 K/uL (4.8-10.8)
[2019-08-05 05:57] LABS: Calcium 8.9 mg/dl (8.5-10.1); Creatinine Clr Calc Pharmacy 78.4 ml/min; Est GFR (African American) 104.1; Est GFR (Non-African American) 89.8; Potassium 3.5 mmol/L (3.5-5.1)
[2019-08-05] MEDS: AMIODARONE 200 MG TAB PO SCH (08:10)
[2019-08-05] MEDS: cilostazoL 100 MG TAB PO SCH (08:10)
[2019-08-05] MEDS: PIPERACILLIN/TAZOBACTAM 3.375 GM in DEXTROSE 5% 100 ML IV SCH (08:12)
--- NOTE | 2019-08-05 10:42 | Surgery Progress Note ---
Date of Service doing fine, no abdominal pain, he tolerated diet, no nausea, no vomiting, August 05, 2019 Assessment & Plan (1) Diverticulitis: Acute diverticulitis resolving with conservative measures We will continue with antibiotics Can advance to low fiber diet H&H is stable with no gross evidence of GI bleeding continuing Supervising Physician Co-Signing Physician Notes Attending addendum: I have physically seen this patient, have supervised the medical residents activities, and agree with the H&P unless as otherwise noted. Assessment and Plan: Acute sigmoid diverticulitis with microperforation- NPO IV fluids Zosyn 4.5 g IV every 8 hours Zofran 4 mg IV every 6 hours as needed nausea Followed by general surgery Dr. Hoyos Elevated LFTs/recurrent cholecystitis and cystic duct obstruction with cholecys tostomy tube- N.p.o. as noted, IV antibiotics as noted. Continue case with [facility] in a.m. Paroxysmal atrial fibrillation/CAD/hypertension/chronic systolic CHF- Holding oral medications at this point while n.p.o. Follow serial troponins. Remainder orders and notations as noted. 08/05/2019 10:39AM doing fine, pt is discharged home today, pt will F/U his surgeon for cholecystotomy F/U me prn Subjective patient feeling well, sitting in chair, has been walking in the halls no further chest pain no further GI bleeding discussed with general surgery, diet advanced to low residue, he said he tolerated chicken at lunch checked labs, WBC is 6k, Hb 10.6, down a little, Cr stable at 0.7 and electrolytes stable troponin 0.04 for several checks Review of Systems Constitutional: as per Subjective / HPI Respiratory: as per Subjective / HPI Cardiovascular: as per Subjective / HPI Additional Comments: CVA, ischemic cardiomyopathy, AAA, HTN Gastrointestinal: cholecystostomy tube, cholecystitis Musculoskeletal: as per Subjective / HPI Integumentary: as per Subjective / HPI Neurologic: as per Subjective / HPI CVA Psychiatric: as per Subjective / HPI Endocrine: as per Subjective / HPI Hematologic / Lymphatic: as per Subjective / HPI Allergy / Immunological: as per Subjective / HPI Physical Exam Constitutional: WD/WN, vitals as above well developed and well nourished Eyes: PERRL, conjunctivae normal, anicteric sclerae ENMT: external ear and nose normal, oropharynx normal Neck: trachea midline, no thyromegaly Respiratory: normal respiratory effort, lungs clear to auscultation normal respiratory effort Cardiovascular: RRR, no murmur, no edema Rate/Rhythm: regular rate and regular rhythm Heart Sounds: normal S1 and normal S2 Gastrointestinal (Abdomen): normal bowel sounds, soft, nontender, no hepatosplenomegaly Percussion/Palpation: + abdomen tender and abdomen soft Musculoskeletal: no cyanosis or clubbing, extremities motor strength 5/5 Skin: no rashes, warm and dry Neurologic: patellar DTR's 2+ bilat, sensation intact Psychiatric: Orientation: alert and oriented x 3 Results & Data Vital Signs (Past 12 Hours) Vital Signs Temp Pulse Pulse Pulse Resp BP Pulse Ox 08/05/19 08:27 36.5 C 64 61 67 16 147/85 H 98 08/05/19 08:07 36.5 C 64 16 147/85 H 98 08/05/19 07:56 36.5 C 64 16 147/85 H 98 08/04/19 22:52 36.5 C 61 16 157/83 H 95
--- NOTE | 2019-08-11 08:00 | Discharge Summary ---
Date of Service August 05, 2019 Admission HPI Per Admitting Provider 68 yo M PMHx HTN, CAD (s/p stent placement 2001), ischemic cardiomyopathy with EF 35% on last Echo, AAA, CVA, diverticulosis, recurrent cholecystitis with cholecystostomy placed this June presents to hospital for epigastric to RUQ abdominal pain x3 days with associated fevers to Tmax 100.6 and non-bloody diarrhea but without associated nausea or vomiting. Reports that 3 days ago he started having consistent 10/10 cramping abdominal pain in his epigastric to RUQ pain that was not associated with position or with food intake. He assumed at the time that it was related to his gallbladder disease and did not eat anything for about 36 hours to try to "calm his system down". After about 36 hours the pain started being more intermittent with 2/10 pain at rest and then 10/10 pain that would come on suddenly and disappear after a few minutes to an hour. Since yesterday has been 2/10 pain consistently. He also reports fevers over the weekend to Tmax of 100.6 which he took Tylenol for which alleviated his fever but not his pain when it was at its most severe. Since yesterday has been able to tolerate small meals including a bowl of cream of wheat and a bowl of chicken noodle soup without increase in pain or nausea. Has a history of cholecystitis and follows at [facility] for intermittent replacement of his cholecystostomy tube, next appointment with Dr. Rees in September. At this time denies shortness of breath, chest pain, palpitations, dizziness, headaches, URI symptoms, sick contacts, recent travel. Principal Diagnosis Sigmoid diverticulitis Discharge Exam Constitutional WD/WN, vitals as above Eyes PERRL, conjunctivae normal, anicteric sclerae ENMT external ear and nose normal, oropharynx normal Neck trachea midline, no thyromegaly Respiratory normal respiratory effort, lungs clear to auscultation Cardiovascular RRR, no murmur, no edema Gastrointestinal (Abdomen) Inspection/Auscultation: abdomen normal to inspection, normal bowel sounds and + abdominal surgical drain present (green bile in bag); abdomen not distended Percussion/Palpation: abdomen soft; abdomen nontender, no guarding and abdomen not rigid Musculoskeletal no cyanosis or clubbing, extremities motor strength 5/5 Skin no rashes, warm and dry Neurologic patellar DTR's 2+ bilat, sensation intact and PERRL, EOMI, accommodation nl, no face palsy, no dysarthria Psychiatric A+Ox3, euthymic affect Lymphatic no cervical or axillary lymphadenopathy Discharge Data Allergies Allergy/AdvReac Type Severity Reaction Status Date / Time adhesive AdvReac Mild Blister Verified 08/01/19 16:51 magnesium AdvReac Mild Diarrhea Verified 08/01/19 16:51 NSAIDS (Non-Steroidal AdvReac Mild Gastrointestinal Verified 08/01/19 16:51 Anti-Inflamma Upset Rabffif-Gbu-Mwp Reductase AdvReac Mild Diarrhea Verified 08/01/19 16:51 Inhibitor fenofibrate AdvReac Diarrhea Verified 08/01/19 16:51 olmesartan [From Benicar] AdvReac Diarrhea Verified 08/01/19 16:51 quinapril [From Accupril] AdvReac Confusion Verified 08/01/19 16:51 Consultations 08/01/19 18:31 ED Decision to Admit Stat 08/01/19 22:10 Consult General Surgery Routine Ordered Studies 08/01/19 16:07 CT abd pelvis IV con only Stat Hospital Course (1) Diverticulitis: pain is resolved no fever, normal WBC, vitals stable for days small area of perforation measured 11mm on CT, should resolve with IV antibiotics treated with Zosyn IV, change to Augmentin on discharge diet advanced by surgery to low residue, tolerating well can follow up with PCP (2) GI bleed: occurred briefly on day 2 of admission stools have been soft/loose and brown ever since at the time of the bleed he was on heparin drip Hb drifted down slightly but no other signs of bleeding will hold anticoagulation on discharge since he is in NSR repeat H/H as outpatient should be able to resume anticoagulation in a week deferred on getting GI involved as patient is high risk with cardiomyopathy and CAD only performing emergent cases right now and bleeding was very brief (3) Afib: continue amiodarone patient has been in normal sinus rhythm on EKG as well as on exam will hold anticoagulation another week due to possible brief GI bleeding (4) CHF (congestive heart failure): (5) AAA (abdominal aortic aneurysm): stable on CT on admission follows every 6 months (6) Renal infarct: (7) Ischemic cardiomyopathy: examines euvolemic stop fluids (8) DVT prophylaxis: (9) Hypertension: BP stable (10) CVA (cerebral vascular accident): h/o such, no residual symptoms (11) Elevated LFTs: Total Time Total Time Spent Total Time Spent (In Minutes): 35 minutes Total Time Includes: Examination of the Patient, Discharge Planning and Medication Reconciliation Discharge Plan Discharge Items Patient Disposition: Home - Home Health Services Reason For Visit: DIVERTICULITIS Discharge Diagnosis: Diverticulitis Mild GI bleed, resolved Condition on Discharge: Good Goals: complete course of antibiotics for diverticulitis Activity: Resume your previous activity Bathing: No limitations Driving/Machine Use: Resume 1 day after discharge Weightbearing: Full weightbearing Non-emergency contact: Primary Care Provider Call non-emergency contact if: you have any medication questions Follow-up/Referrals: Owen Bowman [Primary Care Provider] - 08/11/19 11:10 am (7-10 days, needs hospital follow up for diverticulitis APPOINTMENT AT [facility] [address] IF YOU NEED TO CHANGE APPOINTMENT PLEASE CALL [phone]) Diet: Heart Healthy and Low Fiber Ambulatory Orders: Complete Blood Count no Diff (Routine) Timeframe: 1 Week Location: Determined by Patient Ordered By: Juvencio Reed Attending Provider Instructions: Medications: - AUGMENTIN: 875mg BID for 20 more doses, next dose is due this evening, this is antibiotic to treat diverticulitis Acute diverticulitis very small area of perforation in sigmoid colon, contained area of 11mm, resolved with IV antibiotics will complete 10 more days of Augmentin at home follow a low residue diet for the next few weeks follow up with primary care doctor in 7-10 days GI bleeding: minimal bleeding, hemoglobin dropped slightly but it is stable please watch for any further signs of bleeding such as dark stools at the time of the bleeding, the heparin drip was stopped, have been off of anticoagulation ever since that time repeated EKG have shown you to be in normal sinus rhythm recommend holding Eliquis another week, follow up with CBC (blood count) next week will recommend taking Protonix 40mg daily as a way to treat possible peptic ulcer disease the method to diagnose peptic ulcer disease is EGD (scope) but we are only performing emergent scopes at this time due to mandates from federal government since bleeding stopped quickly and Hb dropped only slightly, it is safe to treat you conservatively again, if you have significant bleeding (bright red blood, dark tarry stools) please do not hesitate to return to the ED Chest pain: one episode, no changes on EKG and no significant rise in troponin (heart enzymes) your heart is very sensitive to changes in hemodynamics as you are well aware, you need bypass surgery due to the severity of your coronary disease in summary, there was no evidence of an acute heart attack, this was just angina continue on your heart regimen follow up with Dr. Newman as previously scheduled Pending Studies at Discharge: No Stand-Alone Forms: My [facility], Smoking Cessation Medications and DC Order Prescriptions: New amoxicillin-pot clavulanate [Augmentin] 875-125 mg tablet 1 tab PO BID Qty: 20 RF: 0 pantoprazole [Protonix] 40 mg tablet,delayed release (DR/EC) 40 mg PO DAILY 28 Days Qty: 28 RF: 0 Continued Entresto 24-26 mg Tablet 1 tab PO BID RF: 0 metoprolol succinate [Toprol XL] 50 mg Tablet Extended Release 24 Hr 50 mg PO QPM RF: 0 nitroglycerin 0.4 mg Tablet, Sublingual 0.4 mg sublingual DIRECTED PRN (Reason: Chest Pain) RF: 0 cilostazol 100 mg Tablet 100 mg PO BID RF: 0 hydrochlorothiazide 25 mg Tablet 12.5 mg PO TID RF: 0 acetaminophen [Tylenol Extra Strength] 500 mg Tablet 1,000 mg PO Q6H PRN (Reason: Pain) RF: 0 amiodarone 200 mg tablet 200 mg PO QAM RF: 0 Discontinued Eliquis 5 mg tablet 5 mg PO BID RF: 0 Discharge Orders: Discharge Order (Routine); Ordered 08/05/19 Ordered By: Juvencio Auguste/Other Patient Handouts: Amoxicillin Clavulanic Acid tablets Admission Data Admit Date/Time: 08/01/19 21:06 Attending Provider: Juvencio Patricio Admit Provider: Marlen Stout Primary Care Provider: Owen Bowman Other Providers: Maria T Hoyos ; Daniel Vega Other Interventions: Discharge Summary Assessment (RN) Last Done: 08/05/19 08:27 DC Date/Time DO NOT enter until pt leaves facility: 08/05/19 11:12 Coding Level of Care Code D/C Day Management >30 mins Diagnoses Diverticulitis K57.92 GI bleed K92.2 Afib I48.0 Atrial fibrillation type: paroxysmal CHF (congestive heart failure) I50.9 Heart failure type: unspecified Heart failure chronicity: chronic AAA (abdominal aortic aneurysm) I71.4 Presence of rupture: without rupture Renal infarct N28.0 Ischemic cardiomyopathy I25.5 DVT prophylaxis Z29.9 Hypertension I10 Hypertension type: essential hypertension CVA (cerebral vascular accident) I63.9 CVA mechanism: unspecified Elevated LFTs R94.5
== END 2019-08-05 11:12 | disposition home health service (06) | DRG 392 ==
LOC: ED 15:48 → 3E 21:06 → SUATTDRO 21:06 → 3E 21:55